=== PATIENT | female | born 1960 | race Caucasian/White ===

== ENCOUNTER 2016-08-15 20:06 | Inpatient (IN) ==
[2016-08-15 20:17] VITALS: BMI 45.0
[2016-08-15] MEDS ORDERED: SODIUM CHLORIDE 1,000 ML IV STA (20:28)
[2016-08-15] MEDS ORDERED: XOPENEX 1.25 MG NEB STA (20:28)
[2016-08-15] MEDS ORDERED: DUONEB NEB STA (20:28)
[2016-08-15] MEDS ORDERED: ROCEPHIN 1 GM in SODIUM CHLORIDE 100 ML IV STA (20:29)
[2016-08-15 20:53] LABS: BASOPHILS % (AUTO) 0.5 % (0.0-3.0); EOSINOPHILS % (AUTO) 0.7 % (0.0-7.0); HEMATOCRIT 41.2 % (37.0-47.0); HEMOGLOBIN 14.2 g/dl (12.0-16.0); IMMATURE GRANULOCYTE % (AUTO) 0.2 % (0.0-5.0); LYMPHOCYTES # (AUTO) 1.6 K/uL (0.60-3.4); LYMPHOCYTES % (AUTO) 37.2 (10.0-50.0); MEAN CORPUSCULAR HEMOGLOBIN 30.5 pg (27.0-31.0); MEAN CORPUSCULAR HGB CONC 34.5 (31.8-35.4); MEAN CORPUSCULAR VOLUME 88.6 fl (81.0-99.0); MONOCYTES # (AUTO) 0.3 K/uL (0.4-2.0); MONOCYTES % (AUTO) 6.2 (0-10); NEUTROPHILS # (AUTO) 2.4 K/ul (2.0-6.9); NEUTROPHILS % (AUTO) 55.2; PLATELET COUNT 123 10^3/uL (140-440); RED BLOOD COUNT 4.65 10^6/ul (4.20-5.40); WHITE BLOOD COUNT 4.35 K/ul (4.6-10.2)
[2016-08-15 21:12] LABS: ABG BASE EXCESS -1 (-2.0-2.0); ABG PCO2 36.9 mmHg (35-45); ABG PH 7.414 (7.35-7.45)
[2016-08-15 21:13] LABS: ABG HCO3 23.6 (22.0-26.0); ABG TCO2 25 (22.0-28.0)
[2016-08-15] MEDS ORDERED: ROCEPHIN ONE (21:20)
[2016-08-15 21:22] LABS: CREATINE KINASE 46 U/L
--- NOTE | 2016-08-15 21:23 | CT ---
EXAM: CT chest without contrast HISTORY: Cough and fever TECHNIQUE: Multi-slice transaxial helical. Coronal and sagital reformations were performed. COMPARISON: Chest radiograph 06/11/2013. FINDINGS: The heart is normal in size. Mild coronary atherosclerosis is present. Calcified mediastinal granu german are present. Mildly enlarged subcarinal lymph node measures up to 14 mm in short axis. Other small scattered mediastinal lymph nodes measure less than 10 mm. There is no axillary adenopathy. Operative changes of gastric bypass are suggested. Anterior abdom inal wall, possible hernia mesh repair is present. Ventral abdominal wall fat and transverse colon containing hernia is present. No evidence of: Dilation is seen. The gallbladder has been removed. A loop of small bowel in the left upper abdomen is dilated measuring up to 6.4 cm and is near the surgical anastomosis. There is mild multilevel degenerative changes of the thoracic spine. The uppermost lung apices are excluded from the exam. Small nodular densities in the right upper lo be are present measuring up to 4 mm. There is no focal airspace opacity or pleural effusion. IMPRESSION: 1. No acute cardiopulmonary findings. No focal pneumonia. 2. Mildly enlarged subcarinal lymph node which is nonspecific. Differential includes an active, in fectious, inflammatory, or neoplastic. 3. Two small pulmonary nodules in the right upper lung measuring up to 4 mm. Recording 2017 Fleisch ner Society guidelines, a low risk patient requires no routine follow-up. If the patient is high ri sk then an optional CT can be performed in 12 months. 4. Operative changes of gastric bypass with dilated small bowel loop in the left upper abdomen near the anastomosis. A mild obstruction at the anastomosis is suggested. 5. Anterior abdominal wall fat and transverse colon containing hernia. 6. Limited exam secondary to uppermost lung apices excluded from the exam.
[2016-08-15 21:29] LABS: FLU INTERNAL QC INTERNAL QC VALID; RAPID FLU A NEGATIVE (NEGATIVE); RAPID FLU B NEGATIVE (NEGATIVE)
[2016-08-15] MEDS ORDERED: SOLU-MEDROL 125 MG IVP STA (21:33)
[2016-08-15 21:58] LABS: ALBUMIN 3.5 g/dL (3.4-5.0); ANION GAP 11.7; BILIRUBIN,TOTAL 0.89 mg/dL (0.00-1.20); BUN/CREATININE RATIO 17.24; CALCIUM 8.8 mg/dL (8.2-10.2); CREATININE 0.87 mg/dL (0.60-1.30); POTASSIUM 3.7 mmol/L (3.5-5.10)
--- NOTE | 2016-08-15 22:09 | ED.PDOC ---
General ED Provider: Dr. YRIS FRENCH-ER Chief Complaint: Shortness of Air Stated Complaint: i am sob --wheezing despite steroids given to me Time Seen by Physician: 20:10 Mode of Arrival: Walk-In Information Source: Patient Exam Limitations: No limitations Primary Care Provider: LEVY HERNÁNDEZ Nursing and Triage Documentation Reviewed and Agree: Yes Respiratory Complaint Exam - Respiratory Complaint/Exam Onset/Duration: one week Symptoms Are: Still present Timing: Intermittent Initial Severity: Mild Current Severity: Moderate Location: Chest Character: Reports: Productive cough Aggravating: Reports: URI Alleviating: Reports: Bronchodilators Associated Signs and Symptoms: Reports: Fever, Wheezing, URI, Nasal congestion. Denies: Rapid breathing, Dyspnea, Chills, Chest pain, Pleuritic chest pain, Hemoptysis, Dizziness, Calf pain, Calf swelling, Edema, Hoarseness, Sinus discomfort, Vomiting, Sore throat, Weight loss, Decreased oral intake, Increased thirst, Increased appetite, Increased urination Related History: Reports: Similar episode History of Healthcare-Acquired Pneumonia: No Pulmonary Embolism Risk Factors: None Cardiac Risk Factors: Reports: Smoking Pseudomonas Risk Factors: Reports: Chronic Lung Disease Tuberculosis Risk Factors: Reports: None Home Oxygen Use: No Recent Stress Test: No Recent Echo/LV Function: No Current Antibiotic Use: No Current Asthma Medication Use: No Respiratory Distress: Moderate Inadequate Respiratory Effort: Yes Dysphagia Present: No Stridor Present: No JVD Present: No Accessory Muscle Use: No Retractions: Not Present Diminished Breath Sounds: No Prolonged Respiration: Expiratory phase Sinus Tenderness: None Grunting Respirations: No Kussmaul Respirations: No Differential Diagnoses: COPD Exacerbation, Pneumonia, Bronchitis, URI Review of Systems - Review Of Systems Constitutional: Reports: No symptoms Eyes: Reports: No symptoms Ears, Nose, Mouth, Throat: Reports: No symptoms Respiratory: Reports: Cough, Wheezing Cardiac: Reports: No symptoms GI: Reports: No symptoms : Reports: No symptoms Musculoskeletal: Reports: No symptoms Skin: Reports: No symptoms Neurological: Reports: No symptoms Endocrine: Reports: No symptoms Hematologic/Lymphatic: Reports: No symptoms All Other Systems: Reviewed and Negative Past Medical History - Past Medical History Endocrine: Reports: Unknown Cardiovascular: Reports: Unknown Respiratory: Reports: Unknown Hematological: Reports: Unknown Gastrointestinal: Reports: Unknown Genitourinary: Reports: Unknown Neuro/Psych: Reports: Unknown Musculoskeletal: Reports: Unknown Cancer: Reports: Unknown Last Menstrual Period: POST MENOPAUSAL - Surgical History General Surgical History: Reports: Unknown - Family History Family History: Reports: Unknown - Social History Smoking Status: Current every day smoker, Heavy tobacco smoker Hx Substance Use: No Alcohol Screening: None Lives: With family - Immunizations Tetanus Shot up to Date: No Physical Exam - Physical Exam Appearance: Well-appearing, No pain distress, Well-nourished Eyes: ANDRES, EOMI, Conjunctiva clear ENT: Ears normal, Nose normal, Oropharynx normal Neck: Supple Respiratory: Airway patent, Breath sounds equal, Rhonchi, Wheezes Cardiovascular: RRR, Pulses normal, No rub, No murmur GI/: Soft, Nontender, No masses, Bowel sounds normal, No Organomegaly Musculoskeletal: Normal strength, ROM intact, No edema, No calf tenderness Skin: Warm, Dry, Normal color Neurological: Sensation intact Psychiatric: Affect appropriate, Mood appropriate Interpretation - Radiology Interpretation Radiology Interpretation By: Radiologist Radiology Results: Negative Exam Interpreted: CT Scan - EKG Interpretation Time of EKG #1: 22:10 Rate: Normal Rhythm: Sinus Ectopy: None Mead: NL ST Segment: Normal Interpretation: nsr Re-Evaluation - Re-Evaluation Time of Re-Evaluation: 22:10 Status: Improved Vital Signs Stable: Yes Pain Level: 0 Appearance: NAD Lungs: Clear Skin: Warm and Dry Neuro: Alert and Oriented X3 CV: RRR Physician Notification - Case Discussed Physician Notified: dr [email or web address] Time of Notification: 22:10 Critical Care Note - Critical Care Note Total Time (mins): 0 Course - Course Hematology/Chemistry: 08/15/16 20:45 08/15/16 21:00 Orders, Labs, Meds: Lab Review 08/15/16 08/15/16 08/15/16 20:27 20:45 20:59 WBC 4.35 L RBC 4.65 Hgb 14.2 Hct 41.2 MCV 88.6 MCH 30.5 MCHC 34.5 RDW Coeff of Awilda 13.2 Plt Count 123 L Immature Gran % (Auto) 0.2 Neut % (Auto) 55.2 Lymph % (Auto) 37.2 [place] % (Auto) 6.2 Eos % (Auto) 0.7 Baso % (Auto) 0.5 Immature Gran # (Auto) 0.0 Neut # 2.4 Lymph # 1.6 [place] # 0.3 L Eos # 0.0 Baso # 0.0 D-Dimer 1.23 Puncture Site Rb O2 Saturation 96.0 ABG pH 7.414 ABG pCO2 36.9 ABG pO2 80.0 L ABG HCO3 23.6 ABG Total CO2 25 ABG Base Excess -1 Rickie Test + FiO2 % 21.0 Sodium Potassium Chloride Carbon Dioxide Anion Gap BUN Creatinine Estimated GFR (MDRD) BUN/Creatinine Ratio Glucose Lactic Acid 12.5 Calcium Total Bilirubin AST ALT Alkaline Phosphatase Total Creatine Kinase 46 Troponin I < 0.0100 B-Natriuretic Peptide 77 Total Protein Albumin Globulin Albumin/Globulin Ratio Procalcitonin < 0.05 Influenza A (Rapid) Negative Influenza B (Rapid) Negative 08/15/16 21:00 WBC RBC Hgb Hct MCV MCH MCHC RDW Coeff of Awilda Plt Count Immature Gran % (Auto) Neut % (Auto) Lymph % (Auto) [place] % (Auto) Eos % (Auto) Baso % (Auto) Immature Gran # (Auto) Neut # Lymph # [place] # Eos # Baso # D-Dimer Puncture Site O2 Saturation ABG pH ABG pCO2 ABG pO2 ABG HCO3 ABG Total CO2 ABG Base Excess Rickie Test FiO2 % Sodium 138 Potassium 3.7 Chloride 105 Carbon Dioxide 25 Anion Gap 11.7 BUN 15 Creatinine 0.87 Estimated GFR (MDRD) 67.00 BUN/Creatinine Ratio 17.24 Glucose 126 H Lactic Acid Calcium 8.8 Total Bilirubin 0.89 AST 120 H ALT 167 H Alkaline Phosphatase 274 H Total Creatine Kinase Troponin I B-Natriuretic Peptide Total Protein 7.0 Albumin 3.5 Globulin 3.5 Albumin/Globulin Ratio 1.00 Procalcitonin Influenza A (Rapid) Influenza B (Rapid) Orders Category Date Time Status ABG DRAW REQUEST Stat CARDIO 08/15/16 20:27 Completed EKG-(ED ONLY) Stat CARDIO 08/15/16 20:27 Completed NEBULIZER TREATMENT Stat CARDIO 08/15/16 20:28 Completed ED IV/MEDIPORT/POWERPORT .ONCE EMERGENCY 08/15/16 20:28 Active ABG Stat LAB 08/15/16 20:27 Completed B-TYPE NATRIURETIC PEPTIDE Stat LAB 08/15/16 20:45 Completed BLOOD CULTURE Stat LAB 08/15/16 20:45 Received CBC W/ AUTO DIFF Stat LAB 08/15/16 20:45 Completed CMP [COMPREHENSIVE METABOLIC PANEL] Stat LAB 08/15/16 21:00 Completed CREATINE KINASE Stat LAB 08/15/16 20:45 Completed D-DIMER Stat LAB 08/15/16 20:45 Completed LACTIC ACID Stat LAB 08/15/16 20:45 Completed MOLECULAR GROUP A STREP Stat LAB 08/15/16 20:59 Results PROCALCITONIN Stat LAB 08/15/16 20:45 Completed RAPID FLU A/B Stat LAB 08/15/16 20:59 Completed STREP SCREEN Stat LAB 08/15/16 20:59 Results TROPONIN I Stat LAB 08/15/16 20:45 Completed 0.9 % Sodium Chloride [Saline Flush] MEDS 08/15/16 20:28 Ordered 1 syr IVF PRN PRN Ceftriaxone Sodium [Rocephin] MEDS 08/15/16 21:20 Discontinued 1 gm .ROUTE .STK-MED ONE Ceftriaxone Sodium [Rocephin] 1 gm MEDS 08/15/16 20:29 Discontinued 0.9 % Sodium Chloride [Sodium Chloride] 100 ml IV ONCE Ipratropium/Albuterol Neb [Duoneb] MEDS 08/15/16 20:28 Discontinued 1 vial NEB ONCE STA Levalbuterol HCl [Xopenex 1.25 mg] MEDS 08/15/16 20:28 Discontinued 1 vial NEB ONCE STA Methylprednisolone Sod Succ/Pf [Solu-Medrol 125 mg] MEDS 08/15/16 21:33 Discontinued 125 mg IVP ONCE STA Sodium Chloride 0.9% [Sodium Chloride] 1,000 ml MEDS 08/15/16 20:28 Active IV 100 mls/hr CT CHEST W/O CONTRAST Stat RADS 08/15/16 20:29 Completed Medications Generic Name Dose Route Start Last Admin Trade Name Freq PRN Reason Stop Dose Admin Sodium Chloride 1,000 mls @ 100 mls/hr 08/15/16 20:28 08/15/16 21:09 Sodium Chloride IV 08/16/16 06:27 100 mls/hr .Q10H STA Administration Sodium Chloride 1 syr 08/15/16 20:28 Saline Flush IVF PRN PRN To flush IV Discontinued Medications Generic Name Dose Route Start Last Admin Trade Name Freq PRN Reason Stop Dose Admin Albuterol/Ipratropium 1 vial 08/15/16 20:28 08/15/16 21:06 Duoneb NEB 08/15/16 20:29 1 vial ONCE STA Administration Ceftriaxone Sodium 1 gm/ 100 mls @ 100 mls/hr 08/15/16 20:29 08/15/16 21:26 Sodium Chloride IV 08/15/16 21:28 100 mls/hr ONCE STA Administration Levalbuterol HCl 1 vial 08/15/16 20:28 08/15/16 21:15 Xopenex 1.25 Mg NEB 08/15/16 20:29 1 vial ONCE STA Administration Methylprednisolone Sodium Succinate 125 mg 08/15/16 21:33 08/15/16 21:42 Solu-Medrol 125 Mg IVP 08/15/16 21:34 125 mg ONCE STA Administration Vital Signs: Temp Pulse Resp BP Pulse Ox 08/15/16 20:08 100.5 F H 91 H 26 H 115/58 L 94 L Departure - Departure Time of Disposition: 22:10 Disposition: ADMITTED INPATIENT Discharge Problem: Obstructive chronic bronchitis with exacerbation Instructions: COPD (Chronic Obstructive Pulmonary Disease) (ED) Condition: Fair Pt referred to PMD for follow-up: No Allergies/Adverse Reactions: Allergies No Known Allergies Allergy (Unverified 06/11/13 14:05) Home Medications: Ambulatory Orders Alprazolam [Xanax] 1 mg PO QID PRN 06/11/13 Divalproex Sodium [Depakote] 500 mg PO Q8HR 06/11/13 Lamotrigine [Lamictal] 150 mg PO BID 06/11/13 Losartan Potassium [Cozaar] 100 mg PO DAILY 06/11/13 Olanzapine [Zyprexa] 7.5 mg PO BEDTIME 06/11/13 Potassium Chloride [K-Dur] 20 meq PO DAILY 06/11/13 Ropinirole HCl [Requip] 5 mg PO BID 06/11/13 Dextroamphetamine/Amphetamine [Adderall 30 Mg Tablet] 30 mg PO BID #75 Oxycodone-Acetaminophen 10-325 [Percocet 10-325] 10 mg PO QID PRN 08/15/16 Disposition Discussed With: Patient, Family
[2016-08-15] MEDS ORDERED: PERCOCET 10-325 PO PRN (22:16)
[2016-08-15] MEDS ORDERED: NON-FORMULARY MEDICATION (Alprazolam [Xanax] 1 MG) PO PRN ×22 (22:16)
[2016-08-15] MEDS: DUONEB NEB SCH (23:19)
[2016-08-15] MEDS: SODIUM CHLORIDE 1,000 ML IV SCH (23:30)
[2016-08-16] MEDS ORDERED: ZYPREXA ONE ×3 (00:53→00:58)
[2016-08-16] MEDS ORDERED: REQUIP ONE ×3 (00:53→00:56)
[2016-08-16] MEDS ORDERED: LOPRESSOR ONE (00:58)
[2016-08-16] MEDS ORDERED: COZAAR ONE (00:59)
[2016-08-16] MEDS ORDERED: REQUIP PO STA (01:00)
[2016-08-16] MEDS ORDERED: COZAAR PO STA (01:00)
[2016-08-16] MEDS ORDERED: ZYPREXA PO STA (01:00)
[2016-08-16] MEDS ORDERED: LOPRESSOR PO STA ×2 (01:00)
[2016-08-16] MEDS: PERCOCET 10-325 PO PRN ×3 (01:06→21:58)
[2016-08-16] MEDS: DUONEB NEB SCH ×4 (05:21→23:03)
[2016-08-16 06:29] LABS: HEMATOCRIT 40.5 % (37.0-47.0); HEMOGLOBIN 13.9 g/dl (12.0-16.0); IMMATURE GRANULOCYTE % (AUTO) 0.4 % (0.0-5.0); LYMPHOCYTES # (AUTO) 0.6 K/uL (0.60-3.4); LYMPHOCYTES % (AUTO) 26.1 (10.0-50.0); MEAN CORPUSCULAR HEMOGLOBIN 30.5 pg (27.0-31.0); MEAN CORPUSCULAR HGB CONC 34.3 (31.8-35.4); MEAN CORPUSCULAR VOLUME 88.8 fl (81.0-99.0); MONOCYTES % (AUTO) 1.3 (0-10); NEUTROPHILS # (AUTO) 1.6 K/ul (2.0-6.9); NEUTROPHILS % (AUTO) 72.2; PLATELET COUNT 103 10^3/uL (140-440); RED BLOOD COUNT 4.56 10^6/ul (4.20-5.40); WHITE BLOOD COUNT 2.26 K/ul (4.6-10.2)
[2016-08-16] MEDS: SYMBICORT 160-4.5 MCG INHALER IH SCH ×3 (06:31→21:58)
[2016-08-16] MEDS ORDERED: DEPAKOTE ONE (06:55)
[2016-08-16] MEDS: DEPAKOTE PO SCH ×3 (07:10→21:58)
[2016-08-16 07:12] LABS: ALBUMIN 3.4 g/dL (3.4-5.0); ALBUMIN/GLOBULIN RATIO 0.94; ANION GAP 13.6; BILIRUBIN,TOTAL 0.6 mg/dL (0.00-1.20); BUN/CREATININE RATIO 18.55; CREATININE 0.97 mg/dL (0.60-1.30); POTASSIUM 3.6 mmol/L (3.5-5.10)
[2016-08-16] MEDS ORDERED: ROPINIROLE HCL 5 MG PO SCH ×21 (09:00)
[2016-08-16] MEDS ORDERED: NON-FORMULARY MEDICATION (Losartan Potassium [Cozaar] 100 MG) PO SCH ×22 (09:00)
[2016-08-16] MEDS ORDERED: LOPRESSOR PO SCH (09:00)
[2016-08-16] MEDS: REQUIP PO SCH ×3 (09:25→21:58)
[2016-08-16] MEDS: LOVENOX SUBCUT SCH (09:25)
[2016-08-16] MEDS: SOLU-MEDROL 40 MG IVP SCH ×2 (09:26→21:58)
[2016-08-16] MEDS: K-DUR PO SCH (09:26)
--- NOTE | 2016-08-16 13:37 | PN ---
DATE OF SERVICE: 08/16/16 SUBJECTIVE: The patient is lying in the bed still having cough and congestion complains of getting lots of phlegm. The patient's dgycrykr-ar-[id number] in the room. REVIEW OF SYSTEMS: CONSTITUTIONAL: No fever since admission, no chills. HEENT: Normal. ENDOCRINE: No weight gain, no weight loss. CVS: No angina symptoms. No CHF symptoms. No palpitations. No atypical chest pain for CAD. No shortness of breath. No PND, no orthopnea. RESPIRATORY: No cough, no hemoptysis. GI: No nausea, no vomiting. No abdominal pain. : No hematuria. No polyuria. MUSCULOSKELETAL:. No joint swelling. PSYCHIATRIC: Not anxious. No depression. No suicidal thoughts. No homicidal thoughts. SKIN: Intact. No rash. PHYSICAL EXAMINATION: V/S: Blood pressure 107/65, respiratory rate 23, heart rate 67, temperature 97.4 and saturation is 90 on 2 liters. HEENT: Normocephalic, atraumatic. Ears, eyes, nose and throat normal. Mucosa dry. NECK: Supple. No JVD, no carotid bruit. No lymphadenopathy. LUNGS: Bilateral entry is decreased and basilar crackles. Expiratory wheezing is present. No rales or rhonchi. HEART: S1, S2 normal. No S3. No murmur, gallop or regurgitation. ABDOMEN: Soft, nontender. Bowel sounds active. No rigidity. No rebound or guarding. No CVA tenderness. EXTREMITIES: No clubbing, cyanosis or pedal edema. MUSCULOSKELETAL: No joint swelling. NEUROLOGIC: Awake, alert, oriented times three. No focal deficit. LYMPHATIC: No lymph nodes palpable. SKIN: Intact. LABS: WBC.26, hgb 13.9, hct 40.5, plt count 103, sodium 140, potassium 3.6, chloride 105, bicarb 25, BUN 18, creatinine 0.97, glucose 243, AST 40, ALT 145 and Alkaline phosphatase 263. ASSESSMENT: 1. COPD exacerbation secondary to the bronchitis 2. Hypertension 3. Dyslipidemia 4. Obesity 5. History of Sturge-Schmid syndrome 6. History of seizure disorder 7. Afebrile illness PLAN: 1. Continue the Rocephin 2. Azithromycin 3. Will get ultrasound of right upper quadrant for the elevated liver function 4. Will get the Dilantin level 5. Daily I&O's TIME SPENT: More than 30 minutes JERICA
[2016-08-16] MEDS: NON-FORMULARY MEDICATION (Dextroamphetamine/Amphetamine [Adderall 30 Mg Tablet] 30 MG) PO SCH ×2 (14:05→21:22)
[2016-08-16] MEDS: LAMOTRIGINE 150 MG PO SCH ×2 (14:05→21:23)
--- NOTE | 2016-08-16 14:10 | HP ---
DATE OF SERVICE: 08/15/16 CHIEF COMPLAINT: Shortness of breath and coughing. HISTORY OF PRESENT ILLNESS: This is a 56-year-old female with multiple medical problems. She has had cough and congestion productive of yellow-green sputum and shortness of breath for which the patient went to the PMD and was given steroids last week. She started taking [id number]-mkh-vqwancc medications and her condition was worsening. The patient was more short of breath, coughing more with yellow-green sputum, feeling feverish, hurting all over so came to the emergency room and was seen by Dr. Solorzano. Temperature was 100.5. Rapid flu was negative. ABGs showed pH 7.414, pc02 36.9, p02 80. Rapid strep was negative. At that time, in view of her multiple medical problems, COPD exacerbation and bronchitis, CT scan of the chest showed some inflammatory, infectious changes. She was admitted to the hospital for IV antibiotics and breathing treatments. REVIEW OF SYSTEMS: CONSTITUTIONAL: Weakness, tiredness. Feverish. HEENT: Normal. ENDOCRINE: No weight gain; no weight loss. CVS: Shortness of breath. No chest pain. No PND, no orthopnea. RESPIRATORY: Cough and congestion productive of yellow-green phlegm. No hemoptysis. GI: No nausea, no vomiting. No abdominal pain. No melena. : No hematuria. No polyuria. MUSCULOSKELETAL: Hurting all over. PSYCHIATRIC: Not anxious. No depression. No suicidal thoughts. No homicidal thoughts. SKIN: Intact, no open lesions. PAST MEDICAL HISTORY: 1. Coronary artery disease 2. Hypertension 3. Dyslipidemia 4. History of seizure disorder not on any medication - the patient has Sturge- Hong syndrome 5. COPD 6. GERD 7. Depression 8. Bipolar disorder 9. Continued nicotine use 10. Anemia 11. History of breast cancer PAST SURGICAL HISTORY: 1. Bilateral partial mastectomy PERSONAL HISTORY: She smokes cigarettes. No drugs or alcohol. She lives at home. FAMILY HISTORY: Not significant. MEDICATIONS: (HOME) 1. Lamictal 2. K-Dur 3. Cozaar 4. Depakote 5. Requip 6. Xanax 7. Zyprexa 8. Ativan 9. Percocet ALLERGIES: NKDA PHYSICAL EXAMINATION: V/S: BP 115/58, respiratory rate 26, heart rate 91, temperature 100.5, saturation 94% on room air. HEENT: The patient has a hemangioma on the right upper eyebrow. No scleral icterus. Mucosa dry. NECK: Supple. No JVD, no bruit. No lymphadenopathy. No thyromegaly. HEART: S1, S2 normal. No murmur. No cyanosis or clubbing. No ascites. LUNGS: Decreased basilar crackles. Mild expiratory wheeze and rhonchi. ABDOMEN: Soft, nontender. Bowel sounds are active. No CVA tenderness. No rigidity or guarding. EXTREMITIES: Edema and varicose veins. No cyanosis, no clubbing. NEUROLOGIC: The patient is awake, alert, oriented times three. SKIN: Intact; no open lesions. LYMPHATIC: No lymph nodes palpable. LABS: White count 4.35, hemoglobin 14.2, hematocrit 41.2, platelet count 123. D. dimer is 1.23. Sodium 130, potassium 3.7, chloride 105, bicarb 25, BUN 15, creatinine 0.87, glucose 126. AST 120, ALT 167. First set of cardiac enzymes are negative. Rapid flu is negative. Rapid strep is negative. Lactic acid is normal. Procalcitonin is normal. ASSESSMENT: 1. ACUTE COPD EXACERBATION SECONDARY TO BRONCHITIS AND UPPER RESPIRATORY INFECTION 2. ELEVATED LIVER ENZYMES 3. HISTORY OF STURGE-HONG SYNDROME WITH SEIZURE DISORDER 4. HYPERTENSION 5. DYSLIPIDEMIA 6. OBESITY PLAN: 1. Admit the patient to the regular floor 2. CBC, CMP today and daily 3. Cardiac enzymes and troponin 4. 2L nasal cannula 5. Rocephin 1 gm daily 6. Lovenox for DVT prophylaxis 7. Duonebs 8. IV fluids at 40 mL/hr 9. Daily I & O's 10. Will follow the patient in daily rounds TIME SPENT: More than 55 minutes today MTDD
[2016-08-16] MEDS ORDERED: OLANZAPINE 7.5 MG PO SCH (21:00)
[2016-08-16] MEDS: LOPRESSOR PO SCH (21:58)
[2016-08-16] MEDS: ROCEPHIN 1 GM in SODIUM CHLORIDE 100 ML IV SCH (21:58)
[2016-08-16] MEDS: ZYPREXA PO SCH (21:58)
[2016-08-16] MEDS: COZAAR PO SCH (21:58)
[2016-08-16] MEDS: SODIUM CHLORIDE 1,000 ML IV SCH (22:00)
[2016-08-16] MEDS: XANAX PO PRN (22:45)
[2016-08-17] MEDS: DUONEB NEB SCH ×4 (05:15→23:10)
[2016-08-17 05:47] LABS: BASOPHILS % (AUTO) 0.1 % (0.0-3.0); HEMOGLOBIN 13.3 g/dl (12.0-16.0); IMMATURE GRANULOCYTE % (AUTO) 0.4 % (0.0-5.0); LYMPHOCYTES # (AUTO) 0.9 K/uL (0.60-3.4); LYMPHOCYTES % (AUTO) 11.4 (10.0-50.0); MEAN CORPUSCULAR HEMOGLOBIN 30.3 pg (27.0-31.0); MEAN CORPUSCULAR HGB CONC 34.1 (31.8-35.4); MEAN CORPUSCULAR VOLUME 88.8 fl (81.0-99.0); MONOCYTES # (AUTO) 0.2 K/uL (0.4-2.0); MONOCYTES % (AUTO) 2.3 (0-10); NEUTROPHILS # (AUTO) 6.8 K/ul (2.0-6.9); NEUTROPHILS % (AUTO) 85.8; PLATELET COUNT 110 10^3/uL (140-440); RED BLOOD COUNT 4.39 10^6/ul (4.20-5.40); WHITE BLOOD COUNT 7.88 K/ul (4.6-10.2)
[2016-08-17 06:05] LABS: ALBUMIN/GLOBULIN RATIO 0.91; ANION GAP 11.6; BILIRUBIN,TOTAL 0.47 mg/dL (0.00-1.20); BUN/CREATININE RATIO 16.66; CALCIUM 8.7 mg/dL (8.2-10.2); CREATININE 0.72 mg/dL (0.60-1.30); POTASSIUM 4.6 mmol/L (3.5-5.10); TOTAL PROTEIN 6.3 g/dL (6.4-8.2)
[2016-08-17] MEDS: DEPAKOTE PO SCH ×2 (06:51→21:03)
[2016-08-17] MEDS ORDERED: DEPAKOTE ONE (06:51)
[2016-08-17] MEDS: K-DUR PO SCH (08:57)
[2016-08-17] MEDS: SYMBICORT 160-4.5 MCG INHALER IH SCH ×2 (08:57→21:00)
[2016-08-17] MEDS: LOVENOX SUBCUT SCH (08:57)
[2016-08-17] MEDS: REQUIP PO SCH ×3 (09:00→21:01)
[2016-08-17] MEDS: LAMOTRIGINE 150 MG PO SCH ×2 (09:00→21:03)
[2016-08-17] MEDS: SOLU-MEDROL 40 MG IVP SCH (09:02)
[2016-08-17] MEDS: TESSALON PERLES PO SCH ×3 (10:23→21:01)
--- NOTE | 2016-08-17 12:53 | PCM.PROG ---
Attending Provider: ATTENDING PROVIDER: Dr. JOSE MCCARTHY DATE OF SERVICE: 08/17/16 SUBJECTIVE: This 56 year old WHITE/ F was hospitalized 08/15/16. The patient states she is feeling better but she still feels sick. She has been up to the bathroom without any problems. She has a mild cough. She still has shortness of breath on exertion. She is afebrile. No chest pain. REVIEW OF SYSTEMS: CONSTITUTIONAL: No fever, no chills. ENDOCRINE: No weight loss or weight gain. HEENT: No sinus drainage, no sore throat. CVS: No angina symptoms. No CHF symptoms. No palpitations. No atypical chest pain for CAD. Shortness of breath with exertion. RESPIRATORY: Cough. No hemoptysis. GI: No melena. No abdominal pain. No nausea, no vomiting. : No hematuria. No polyuria. SKIN: No rash. No wounds. MUSCULOSKELETAL: No pain. CHIEF SUBSTATION OPERATOR: No blackout, no dizziness. No headache. No double vision. PSYCHIATRIC: Not anxious; no depression. No suicidal thoughts. No homicidal thoughts. PHYSICAL EXAMINATION: GENERAL: Sitting on the side of the bed in no distress. VITAL SIGNS: Temperature 97.9 F, Pulse 79, Respiratory Rate 15, BP 127/79, Pulse Ox 97% HEENT: Normocephalic, atraumatic. Mucosa is dry, pallor positive. NECK: No JVP, no carotid bruit. No lymphadenopathy. CARDIAC: S1, S2, no S3. No murmur, gallop or regurgitation. LUNGS: Decreased entry with crackles and wheeze. ABDOMEN: Obese. Soft, non-tender. Bowel sounds active. No rigidity, guarding or CVA tenderness. EXTREMITIES: No clubbing, cyanosis or edema. NEUROLOGIC: Awake, alert and oriented x3. LYMPHATIC: No palpable lymph nodes SKIN: Not dry. Intact. MUSCULOSKELETAL: No joint swelling. LAB REVIEW: 08/17/16 05:30 08/17/16 05:30 08/17/16 05:30: WBC 7.88 D, RBC 4.39, Hgb 13.3, Hct 39.0, MCV 88.8, MCH 30.3, MCHC 34.1, RDW Coeff of Awilda 13.2, Plt Count 110 L, Immature Gran % (Auto) 0.4, Neut % (Auto) 85.8, Lymph % (Auto) 11.4, [place] % (Auto) 2.3, Eos % (Auto) 0.0, Baso % (Auto) 0.1, Immature Gran # (Auto) 0.0, Neut # 6.8, Lymph # 0.9, [place] # 0.2 L, Eos # 0.0, Baso # 0.0, Sodium 143, Potassium 4.6, Chloride 110 H, Carbon Dioxide 26, Anion Gap 11.6, BUN 12, Creatinine 0.72, Estimated GFR (MDRD) 83.00 , BUN/Creatinine Ratio 16.66, Glucose 151 H D, Calcium 8.7, Total Bilirubin 0.47 , AST 44 H D, ALT 99 H D, Alkaline Phosphatase 230 H D, Total Protein 6.3 L, Albumin 3.0 L, Globulin 3.3, Albumin/Globulin Ratio 0.91 ASSESSMENT: Please see below. 1. COPD exacerbation secondary to bronchitis. 2. Bronchitis. 3. Hypertension. 4. Dyslipidemia. 5. Sturge-Schmid syndrome 6. Obesity. 7. History of seizure disorder PLAN: 1. Continue Lovenox, Rocephin and IV fluids 2. Increase Solu-Medrol 60 mg q.8hr 3. Repeat chest x-ray in the a.m. 4. Tessalon Perles 200 mg t.i.d. 5. Encouraged to ambulate Plan and coordination of the patient's care discussed in the presence of Piece Hand and nurse. CONDITION: Stable SCRIBED BY: MICHELLE ANDINO Butter Maker scribed while in presence of service performed by Dr. JOSE MCCARTHY on 08/17/16 ([id number])
[2016-08-17] MEDS: SOLU-MEDROL 125 MG IVP SCH ×2 (12:56→21:05)
[2016-08-17] MEDS ORDERED: SOLU-MEDROL 40 MG IVP SCH (13:00)
[2016-08-17] MEDS: NON-FORMULARY MEDICATION (Dextroamphetamine/Amphetamine [Adderall 30 Mg Tablet] 30 MG) PO SCH ×2 (15:49→21:02)
[2016-08-17] MEDS: ROCEPHIN 1 GM in SODIUM CHLORIDE 100 ML IV SCH (21:00)
[2016-08-17] MEDS: ZYPREXA PO SCH (21:01)
[2016-08-17] MEDS: LOPRESSOR PO SCH (21:01)
[2016-08-17] MEDS: COZAAR PO SCH (21:02)
[2016-08-17] MEDS: PERCOCET 10-325 PO PRN (21:12)
[2016-08-17] MEDS: XANAX PO PRN (21:12)
[2016-08-17] MEDS: SODIUM CHLORIDE 1,000 ML IV SCH (22:32)
[2016-08-18] MEDS: SOLU-MEDROL 125 MG IVP SCH ×3 (04:15→21:16)
[2016-08-18] MEDS: DUONEB NEB SCH ×4 (05:02→23:04)
[2016-08-18] MEDS: SODIUM CHLORIDE 1,000 ML IV SCH (07:10)
[2016-08-18 08:04] LABS: BASOPHILS % (AUTO) 0.1 % (0.0-3.0); HEMATOCRIT 36.8 % (37.0-47.0); HEMOGLOBIN 12.5 g/dl (12.0-16.0); IMMATURE GRANULOCYTE % (AUTO) 0.6 % (0.0-5.0); LYMPHOCYTES % (AUTO) 10.9 (10.0-50.0); MEAN CORPUSCULAR HEMOGLOBIN 30.4 pg (27.0-31.0); MEAN CORPUSCULAR VOLUME 89.5 fl (81.0-99.0); MONOCYTES # (AUTO) 0.1 K/uL (0.4-2.0); MONOCYTES % (AUTO) 1.3 (0-10); NEUTROPHILS # (AUTO) 7.8 K/ul (2.0-6.9); NEUTROPHILS % (AUTO) 87.1; PLATELET COUNT 105 10^3/uL (140-440); RED BLOOD COUNT 4.11 10^6/ul (4.20-5.40); WHITE BLOOD COUNT 8.98 K/ul (4.6-10.2)
[2016-08-18 08:13] LABS: ALBUMIN/GLOBULIN RATIO 0.97; ANION GAP 12.4; BILIRUBIN,TOTAL 0.37 mg/dL (0.00-1.20); BUN/CREATININE RATIO 19.17; CALCIUM 8.6 mg/dL (8.2-10.2); CREATININE 0.73 mg/dL (0.60-1.30); POTASSIUM 4.4 mmol/L (3.5-5.10); TOTAL PROTEIN 6.1 g/dL (6.4-8.2)
--- NOTE | 2016-08-18 09:40 | DI ---
EXAM: Chest two views HISTORY: Cough, shortness of air COMPARISON: 06/11/2013 TECHNIQUE: Two views of the chest were performed FINDINGS: Mild right basilar subsegmental atelectasis. There is granulomatous calcification. Ther e is no pleural effusion or pneumothorax. The heart is normal in size. The mediastinal contour is normal, noting. There are no acute abnormalities of the bones. IMPRESSION: Mild right basilar subsegmental atelectasis. Otherwise, no acute cardiopulmonary proce ss.
[2016-08-18] MEDS: LAMOTRIGINE 150 MG PO SCH ×2 (09:55→20:36)
[2016-08-18] MEDS: NON-FORMULARY MEDICATION (Dextroamphetamine/Amphetamine [Adderall 30 Mg Tablet] 30 MG) PO SCH ×2 (09:56→20:36)
[2016-08-18] MEDS: SYMBICORT 160-4.5 MCG INHALER IH SCH ×2 (09:57→20:32)
[2016-08-18] MEDS: TESSALON PERLES PO SCH ×3 (09:58→20:34)
[2016-08-18] MEDS: LOVENOX SUBCUT SCH (10:00)
[2016-08-18] MEDS: K-DUR PO SCH (10:00)
[2016-08-18] MEDS: DEPAKOTE PO SCH ×3 (13:11→20:34)
[2016-08-18] MEDS: REQUIP PO SCH ×2 (14:19→20:35)
[2016-08-18] MEDS: ROCEPHIN 1 GM in SODIUM CHLORIDE 100 ML IV SCH (20:29)
[2016-08-18] MEDS: PERCOCET 10-325 PO PRN (20:34)
[2016-08-18] MEDS: LOPRESSOR PO SCH (20:34)
[2016-08-18] MEDS: COZAAR PO SCH (20:35)
[2016-08-18] MEDS: ZYPREXA PO SCH (20:35)
[2016-08-19] MEDS: SOLU-MEDROL 125 MG IVP SCH ×3 (04:12→20:21)
[2016-08-19] MEDS: PERCOCET 10-325 PO PRN ×2 (04:15→22:44)
[2016-08-19] MEDS: DUONEB NEB SCH ×4 (04:35→23:08)
[2016-08-19] MEDS: DEPAKOTE PO SCH ×4 (05:27→20:22)
[2016-08-19 07:18] LABS: BASOPHILS % (AUTO) 0.1 % (0.0-3.0); HEMATOCRIT 38.6 % (37.0-47.0); HEMOGLOBIN 12.8 g/dl (12.0-16.0); IMMATURE GRANULOCYTE % (AUTO) 0.6 % (0.0-5.0); LYMPHOCYTES % (AUTO) 12.2 (10.0-50.0); MEAN CORPUSCULAR HEMOGLOBIN 29.8 pg (27.0-31.0); MEAN CORPUSCULAR HGB CONC 33.2 (31.8-35.4); MONOCYTES # (AUTO) 0.1 K/uL (0.4-2.0); MONOCYTES % (AUTO) 1.6 (0-10); NEUTROPHILS # (AUTO) 7.3 K/ul (2.0-6.9); NEUTROPHILS % (AUTO) 85.5; PLATELET COUNT 118 10^3/uL (140-440); RED BLOOD COUNT 4.29 10^6/ul (4.20-5.40); WHITE BLOOD COUNT 8.53 K/ul (4.6-10.2)
[2016-08-19 07:39] LABS: ALBUMIN 3.2 g/dL (3.4-5.0); ALBUMIN/GLOBULIN RATIO 0.89; ANION GAP 16.7; BILIRUBIN,TOTAL 0.43 mg/dL (0.00-1.20); BUN/CREATININE RATIO 18.75; CREATININE 1.12 mg/dL (0.60-1.30); POTASSIUM 4.7 mmol/L (3.5-5.10); TOTAL PROTEIN 6.8 g/dL (6.4-8.2)
[2016-08-19] MEDS: LOVENOX SUBCUT SCH (09:13)
[2016-08-19] MEDS: K-DUR PO SCH (09:13)
[2016-08-19] MEDS: TESSALON PERLES PO SCH ×3 (09:13→20:21)
[2016-08-19] MEDS: SYMBICORT 160-4.5 MCG INHALER IH SCH ×2 (09:13→20:21)
[2016-08-19] MEDS: LAMOTRIGINE 150 MG PO SCH ×2 (09:14→21:09)
[2016-08-19] MEDS: NON-FORMULARY MEDICATION (Dextroamphetamine/Amphetamine [Adderall 30 Mg Tablet] 30 MG) PO SCH ×2 (09:15→21:09)
[2016-08-19] MEDS: REQUIP PO SCH ×2 (15:05→20:22)
[2016-08-19] MEDS: COZAAR PO SCH (20:21)
[2016-08-19] MEDS: ROCEPHIN 1 GM in SODIUM CHLORIDE 100 ML IV SCH (20:21)
[2016-08-19] MEDS: LOPRESSOR PO SCH (20:22)
[2016-08-19] MEDS: ZYPREXA PO SCH (20:22)
[2016-08-19] MEDS: XANAX PO PRN (22:44)
[2016-08-20] MEDS: SOLU-MEDROL 125 MG IVP SCH (04:21)
[2016-08-20 04:50] LABS: BASOPHILS % (AUTO) 0.1 % (0.0-3.0); HEMATOCRIT 36.7 % (37.0-47.0); HEMOGLOBIN 12.4 g/dl (12.0-16.0); IMMATURE GRANULOCYTE % (AUTO) 1.3 % (0.0-5.0); LYMPHOCYTES % (AUTO) 14.8 (10.0-50.0); MEAN CORPUSCULAR HEMOGLOBIN 30.1 pg (27.0-31.0); MEAN CORPUSCULAR HGB CONC 33.8 (31.8-35.4); MEAN CORPUSCULAR VOLUME 89.1 fl (81.0-99.0); MONOCYTES # (AUTO) 0.1 K/uL (0.4-2.0); MONOCYTES % (AUTO) 2.1 (0-10); NEUTROPHILS # (AUTO) 5.4 K/ul (2.0-6.9); NEUTROPHILS % (AUTO) 81.7; PLATELET COUNT 121 10^3/uL (140-440); RED BLOOD COUNT 4.12 10^6/ul (4.20-5.40); WHITE BLOOD COUNT 6.67 K/ul (4.6-10.2)
[2016-08-20] MEDS: DUONEB NEB SCH (05:04)
[2016-08-20 05:08] LABS: ALBUMIN 2.9 g/dL (3.4-5.0); ALBUMIN/GLOBULIN RATIO 0.91; ANION GAP 12.7; BILIRUBIN,TOTAL 0.44 mg/dL (0.00-1.20); BUN/CREATININE RATIO 29.88; CALCIUM 8.8 mg/dL (8.2-10.2); CREATININE 0.87 mg/dL (0.60-1.30); POTASSIUM 4.7 mmol/L (3.5-5.10); TOTAL PROTEIN 6.1 g/dL (6.4-8.2)
[2016-08-20 05:27] VITALS: BP 127/72; TEMP 97
[2016-08-20] MEDS: DEPAKOTE PO SCH (05:36)
[2016-08-20] MEDS: K-DUR PO SCH (08:44)
[2016-08-20] MEDS: SYMBICORT 160-4.5 MCG INHALER IH SCH (08:44)
[2016-08-20] MEDS: LOVENOX SUBCUT SCH (08:45)
[2016-08-20] MEDS: TESSALON PERLES PO SCH (08:45)
[2016-08-20] MEDS: NON-FORMULARY MEDICATION (Dextroamphetamine/Amphetamine [Adderall 30 Mg Tablet] 30 MG) PO SCH (08:45)
[2016-08-20] MEDS: LAMOTRIGINE 150 MG PO SCH (08:46)
--- NOTE | 2016-08-22 10:30 | PN ---
DATE OF SERVICE: 08/18/16 SUBJECTIVE: The patient was admitted with chronic obstructive pulmonary disease exacerbation and bronchitis. She was feeling some better, but still has cough and aches and some dyspnea. REVIEW OF SYSTEMS: CONSTITUTIONAL: No fever, no chills. HEENT: Normal. ENDOCRINE: No weight gain, no weight loss. CVS: No angina symptoms. No CHF symptoms. No palpitations. No atypical chest pain for CAD. No shortness of breath. No PND, no orthopnea. RESPIRATORY: Cough, no hemoptysis. GI: No nausea, no vomiting. No abdominal pain. : No hematuria. No polyuria. MUSCULOSKELETAL:. No joint swelling. PSYCHIATRIC: Not anxious. No depression. No suicidal thoughts. No homicidal thoughts. SKIN: Intact. No rash. PHYSICAL EXAMINATION: V/S: Blood pressure 130/66, respiratory rate 18, heart rate 53, temperature 97. HEENT: Normocephalic, atraumatic. Above the right eyebrow is a hemangioma. NECK: Supple. No JVD, no carotid bruit. No lymphadenopathy. LUNGS: Decreased with some basilar crackles and expiratory wheezing. HEART: S1, S2 normal. No S3. No murmur, gallop or regurgitation. ABDOMEN: Soft, nontender. Bowel sounds active. No rigidity. No rebound or guarding. No CVA tenderness. EXTREMITIES: No clubbing, cyanosis or pedal edema. MUSCULOSKELETAL: No joint swelling. NEUROLOGIC: Awake, alert, oriented times three. No focal deficit. LYMPHATIC: No lymph nodes palpable. SKIN: Intact. LABS: White count is 8.98, hemoglobin 12.5, hematocrit 36.8, platelet count is 105. Sodium 139, potassium 4.4, chloride 106, bicarb 25, BUN 14, creatinine 0.73, glucose 293. ASSESSMENT: 1. CHRONIC OBSTRUCTIVE PULMONARY DISEASE EXACERBATION SECONDARY TO BRONCHITIS 2. THROMBOCYTOPENIA, WHICH IS STABLE. 3. ELEVATED WHITE COUNT 4. ELEVATED AST AND ALT, WHICH IS NORMAL NOW 5. HISTORY OF STURGE-HONG SYNDROME 6. OBESITY 7. HYPERTENSION 8. GERD 9. HISTORY OF BREAST CANCER, BILATERAL PARTIAL MASTECTOMY PLAN: 1. Continue the SoluMedrol, Lovenox, Rocephin. 2. I & O's. 3. Will follow up with the patient in daily rounds. TIME SPENT: More than 30 minutes MTDD
--- NOTE | 2016-08-22 11:35 | PN ---
DATE OF SERVICE: 08/19/16 SUBJECTIVE: The patient was admitted with chronic obstructive pulmonary disease and bronchitis. She is a lot better, but still looks sick from the aches and shortness of breath. She is getting clear to yellow phlegm. REVIEW OF SYSTEMS: CONSTITUTIONAL: No fever, no chills. HEENT: Normal. ENDOCRINE: No weight gain, no weight loss. CVS: No angina symptoms. No CHF symptoms. No palpitations. No atypical chest pain for CAD. No shortness of breath. No PND, no orthopnea. RESPIRATORY: Cough with clear to yellow sputum, no hemoptysis. GI: No nausea, no vomiting. No abdominal pain. : No hematuria. No polyuria. MUSCULOSKELETAL:. No joint swelling. PSYCHIATRIC: Not anxious. No depression. No suicidal thoughts. No homicidal thoughts. SKIN: Intact. No rash. PHYSICAL EXAMINATION: GENERAL: Obese patient sitting in the bed and not in any distress. V/S: Blood pressure 130/66, respiratory rate 17, heart rate 53, temperature is 97. HEENT: Normocephalic, atraumatic. Mucosa dry. Ears, eyes, nose and throat normal. NECK: Supple. No JVD, no carotid bruit. No lymphadenopathy. LUNGS: Decreased with basilar crackles. No wheezing. No rales or rhonchi. HEART: S1, S2 normal. No S3. No murmur, gallop or regurgitation. ABDOMEN: Soft, nontender. Bowel sounds active. No rigidity. No rebound or guarding. No CVA tenderness. EXTREMITIES: No clubbing, cyanosis or pedal edema. MUSCULOSKELETAL: No joint swelling. NEUROLOGIC: Awake, alert, oriented times three. No focal deficit. LYMPHATIC: No lymph nodes palpable. SKIN: Intact. LABS: White count is 8.53, sodium 138, potassium 4.7, chloride 103, bicarb 23, BUN 21, creatinine 1.12, hemoglobin 12.8, hematocrit 38.6, platelet count is 118. ASSESSMENT: 1. Chronic obstructive pulmonary disease exacerbation secondary to bronchitis 2. Elevated liver enzymes, which is better 3. Thrombocytopenia 4. Hypertension 5. Dyslipidemia 6. History of breast cancer 7. Sturge-Schmid Syndrome PLAN: 1. Continue the Rocephin, Zithromycin, SoluMedrol and I & 0"s. 2. Will follow up with the patient in daily rounds. TIME SPENT: More than 30 minutes MTDD
--- NOTE | 2016-08-30 13:56 | DS ---
DATE OF SERVICE: 08/20/16 FINAL DIAGNOSIS: 1. COPD exacerbation secondary to the bronchitis 2. Questionable pneumonia per CAT scan with enlarged lymph node question for the infection 3. Lung nodules 4. Hypertension 5. Dyslipidemia 6. History of seizure disorder on Depakote 7. Anxiety disorder 8. Sturge-beard syndrome 9. Status post gastric bypass. DISCHARGE INSTRUCTIONS: Discharge the patient home. Followup with the PMD within one week. Continue home medication as is. MEDICATIONS AT DISCHARGE: Depakote Xanax Adderall Lamictal Cozaar Zyprexa Oxycodone Potassium Requip NEW PRESCRIPTIONS: Keflex 500mg twice a day for five days Prednisone 10mg twice a day for five days Symbicort two puff twice a day Gargle and rinse mouth after each use. DIET INSTRUCTIONS: Heart healthy ACTIVITY: Gradually increase regular activities. SMOKING: The patient is a smoker, as patient is a smoker we strictly suggested that she should have an outpatient pulmonary consultation. DISEASE SPECIFIC EDUCATION: CT scan findings of questionable bowel obstruction but patient did have a regular bowel movement and did not have constipation and no abdominal pain. Lung nodules and the reason for the followup with the medical administrative specialist The patient verbalized understanding. HOSPITAL COURSE: Montserrat Roy who is a 56 year old female came to the emergency room with the cough and congestion, shortness of breath and getting yellow/green phlegm. CT of the chest showed the enlarged lymph nodes with the question inflammation and some lung nodules and questionable obstruction of the bowel but the patient did not have any problems with the bowel and she has been having regular bowel movement and no nausea or vomiting. At that time the patient was admitted to the hospital and started on the IV antibiotics, breathing treatments for which patient started feeling better. In review of her Sturge- Beard and seizures the patient was studied during the hospitalization. Her sugars were high and AST and ALT was elevated but they gradually came down to normal. The patient's hospital course was uneventful. Explained her to recheck her sugars as outpatient. As the patient is prone for the diabetes given her weight and elevated sugars. Life style modification and weight loss been discussed. Repeat chest X-ray was done on the August 18 right basilar subsegmental atelectasis otherwise normal lungs. The patient was more better and more less short of breath. Sugars were elevated and at that time we did clearly inform patient that she needs check-up outpatient A1c and weight loss diet control. Possibly having the diabetes and need to be followed with the PMD. TIME SPENT: More than 55 minutes. MTDD
== END 2016-08-20 09:55 | disposition home or self-care (01) | DRG 190 ==
LOC: ED 20:06 → MEDSURG A 22:16
PROVIDERS: ADMIT Emergency Medicine; ATTEND Emergency Medicine
DX: J44.0 Chronic obstructive pulmonary disease with (acute) lower respiratory infection (principal); J20.9 Acute bronchitis, unspecified; J44.1 Chronic obstructive pulmonary disease with (acute) exacerbation; J18.9 Pneumonia, unspecified organism; J98.11 Atelectasis; Q85.8 Other phakomatoses, not elsewhere classified; R74.8 Abnormal levels of other serum enzymes; D69.6 Thrombocytopenia, unspecified; R06.02 Shortness of breath; R50.9 Fever, unspecified; R59.0 Localized enlarged lymph nodes; R91.8 Other nonspecific abnormal finding of lung field; I10 Essential (primary) hypertension; E78.5 Hyperlipidemia, unspecified; F41.9 Anxiety disorder, unspecified; E66.9 Obesity, unspecified; F17.200 Nicotine dependence, unspecified, uncomplicated; Z86.69 Personal history of other diseases of the nervous system and sense organs; Z79.899 Other long term (current) drug therapy; Z98.0 Intestinal bypass and anastomosis status; Z98.84 Bariatric surgery status
CPT/HCPCS: 36415; 80053; 82550; 82803; 83605; 83880; 84145; 84484; 85025; 85379; 87040; 87070; 87186; 87651; 87804; 87880; 93005; 93010; 94640; 96365; 96375; 99223; 99233; 99239; 99284

== ENCOUNTER 2016-09-04 12:52 | Outpatient (CLI) | END 2016-09-04 12:53 | disposition home or self-care (01) | LOC: CAR 12:52 | PROVIDERS: ATTEND Emergency Medicine | DX: J42 Unspecified chronic bronchitis (principal); R06.02 Shortness of breath ==

== ENCOUNTER 2017-07-17 14:41 | Outpatient (CLI) ==
--- NOTE | 2017-07-17 15:06 | DI ---
Exam: Three x-rays of the left foot. Comparison: None available. Reason for exam: Pain. FINDINGS: No acute fracture or malalignment. The joint spaces are well maintained. No unexplained calcific soft tissue density or radiopaque retained foreign body. Degenerative disease is seen with calcaneal spurring. There is likely flattening of the plantar arch. Impression: 1. No acute fracture or malalignment is seen in the left foot. 2. If clinical concern exists for pes planus deformity, standing x-rays may be performed.
--- NOTE | 2017-07-17 15:07 | DI ---
EXAM: Two views of the left hip. History: Left hip pain. Findings: No acute fracture or dislocation. No abnormal calcifications or radiopaque foreign bodies . Mild to moderate narrowing of the left hip joint with subchondral sclerosis and small osteophytes. Impression: 1. No acute osseous abnormality. 2. 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
== END 2017-07-17 14:42 | disposition home or self-care (01) ==
LOC: RAD 14:41
PROVIDERS: ATTEND Physician Assistant Medical
DX: M25.552 Pain in left hip (principal); M79.672 Pain in left foot

== ENCOUNTER 2017-08-06 11:00 | Outpatient (RCR) ==
--- NOTE | 2017-08-01 09:47 | RS.OPPTEV2 ---
Date of Note: 07/30/17 Visit #: 1 Date of Evaluation: 07/30/17 Payer Source: Medicaid Surgery Performed?: No Treatment Diagnosis: posterior tibial tendinitis of LLE History of Condition/Mechanism of Injury:: pt reports pain began approx 3 weeks ago. No known injury. Prior Level of Function.....Patient was independent with: ADL's, Self Care, Ambulation/Mobility, Community Integration/Access Functional Limitations: Standing, Squatting, Ambulation, Community Access/ Integration Current Subjective/complaints:: pt c/o pain in L medial heel. pt states that she wears crocs most of the time to give her better support. Reports she was fitted for custom orthotics approx 20 yrs ago and they were so uncomfortable she could not wear them. Treatment Side (optional): Left *Precautions: pt with hx of cancer Medical History Medical History: Hypertension, COPD, Arthritis, Cancer (breast) Surgical History: Knee Replacement, Lumbar Spine, Mastectomy Surgical History Comments:: B partial mastectomy (per patient) Smoking Status: Current every day smoker Diagnostic Testing/Imaging:: X ray of L foot at [facility] on 07/17/17: no acute fx or malalignment seen, calcaneal spurring, flattening of plantar arch. L hip x ray:mild to mod arthritis of L hip. Hx Home Medications: pt unsure of medications will bring on next visit. Patient's Goals: decrease pain in foot to allow for increased mobility Pain Assessment - Pain Description Pain Location: L medial heel Pain Description: Burning, Sharp Current Pain Intensity: 7-8 with standing, 1-2 at rest Functional Outcome Measure LE Functional Scale: 21 (76%) - G Codes & Severity Modifier G Codes & Modifier: n/a Source of G Code score: n/a Observation - Observation Inspection: in standing: B feet with increased pronation with pes planus BLE R is worse than L. pt with min edema in L medial heel Posture: Forward Head, Rounded Shoulders, Increased Thoracic Kyphosis, Decreased Lumbar Lordosis Gait - Gait Pattern General Gait Pattern Observation: Antalgic Gait, Short Stance Time (L) Gait Comments: advised pt to consider using an assistive device to improve gait sequencing and safety General Range of Motion: WFL's BUE and LE's except DF/PF Muscle Strength: BUE 5/5. BLE hip flex 4+/5, knee flex/ext 4+/5 - Left Ankle ROM Left DF with Knee extension: -9 Left Plantar Flexion: 48 - Right Ankle ROM Right DF with Knee extension: 18 Right Plantarflexion: 40 Right Ankle/Foot ROM Limitations: Soft Tissue Tightness, Pain - Left Ankle Strength Left Dorsiflexion: 3+ Fair+ Left Plantar flexion: 4- Good- - Right Ankle Strength Right Dorsiflexion: 4 Good Right Plantarflexion: 4 Good Palpation Palpation Findings: Tenderness (L medial heel) Sensation - Sensation Right Upper Extremity: Intact/Normal Left Upper Extremity: Intact/Normal Right Lower Extremity: Intact/Normal Left Lower Extremity: Intact/Normal Balance - Sitting Balance Static Sitting Balance: Normal Dynamic Sitting Balance: Normal - Standing Balance Static Standing Balance: Good Dynamic Standing Balance: Good - Comments Balance Assessment Comments: pt with episodes of LOB while standing due to pain in L foot. - Heat/Cryotherapy Treatment: Cryotherapy (L medial foot/heel) Interventions - Exercise/Activities/Manual Therapy Exercises/Activities: pt performed DF/PF with green t band, towel gastroc stretch, towel curls, ankle alphabet, standing heel cord stretch, hamstring stretch Manual Therapy: n/a HOME EXERCISE PROGRAM: pt given written HEP including: DF/PF with green tband, ankle alphabet, towel stretch, towel curls, standing heel cord stretch. - Charges Timed Code Treatment Minutes: 58 Total Treatment Time: 68 Procedures billed for this date of service:: eval low, cold pack EVALUATION COMPLEXITY LEVEL EVALUATION COMPLEXITY LEVEL: HISTORY: Medium (HTN, OA, COPD), EXAM OF BODY SYSTEMS: Low (muculoskelatal, neuromuscular), CLINICAL PRESENTATION: Low, CLINICAL DECISION MAKING: Low Assessment Assessment: pt presents with posterior tibial tendinitis of L foot. pt with pes planus B feet, and increased pronation with pain in L foot. pt with antalgic gait due to pain. Patient Education: Home Exercise Program, Education of Plan of Care Rehab Potential: Good Short Term Goals Goal #1: pt report pain < 6/10 with activity Goal to be met by: 08/09/17 Goal #2: pt amb in dept with/without AD with no LOB with decreased antalgic pattern Goal to be met by: 08/09/17 [facility] Goals Goal #1: pt report pain <4/10 with activity L foot Goal to be met by: 08/27/17 Goal #2: pt with improved L ankle ROM WFL's Goal to be met by: 08/27/17 Goal #3: pt independent with HEP Goal to be met by: 08/27/17 Goal #4: pt amb community distances with decreased pain Goal to be met by: 08/27/17 Plan - Treatment to be Provided Procedures: Therapeutic Exercises, Gait Training, Patient Education Modalities: Cryotherapy - Treatment Plan Frequency: 3 X week Duration: 6 weeks ORDER # VISITS AND/OR THROUGH DATE: 09/06/17 - Treatment Code (1) Posterior tibial tendinitis of left lower extremity Code(s): M76.822 - POSTERIOR TIBIAL TENDINITIS, LEFT LEG (2) Left foot pain Code(s): M79.672 - PAIN IN LEFT FOOT (3) Edema of left foot Code(s): R60.0 - LOCALIZED EDEMA
--- NOTE | 2017-08-02 11:34 | RS.CXNS ---
Date of scheduled appointment: 08/02/17 Type: Cancel (Patient calls to cancel due to being sick.)
--- NOTE | 2017-08-06 15:27 | RS.OPPTDN ---
Subjective Date of Note: 08/06/17 Visit #: 2 Date of Evaluation: 07/30/17 Payer Source: Medicaid Treatment Diagnosis: posterior tibial tendinitis of LLE Current Subjective/complaints:: pt states that she bought some [employer] Balance athletic shoes with better arch support and has been trying to wear them a few hours a day. States that she has to work into them due to foot pain. pt states she has been doing her HEP several times per day. She states that she feels the ex is helping. *Precautions: pt with hx of cancer Pain Assessment - Pain Description Pain Location: L medial heel Pain Description: Burning, Sharp Current Pain Intensity: 7-8/10 after walking in from parking lot due to had to park far away. - Heat/Cryotherapy Treatment: Hot Pack (to L heel cord prior to stretch for approx 10 mins), Cryotherapy (to L medial heel after ex ) Interventions - Exercise/Activities/Manual Therapy Exercises/Activities: pt received BLE heel cord stretches, hamstring stretches, pt performed LLE DF, inversion, eversion, with green tband, PF with blue tband. pt performed 2 sets of 10 reps each ex. pt also contract relax with DF/PF. pt unable to tolerate standing heel cord stretch after other ex due to pain. Manual Therapy: n/a HOME EXERCISE PROGRAM: pt given written HEP including: DF/PF with green tband, ankle alphabet, towel stretch, towel curls, standing heel cord stretch. - Charges Timed Code Treatment Minutes: 38 Total Treatment Time: 60 Procedures billed for this date of service:: exercise 2 cold pack Assessment: pt heel pain has decreased to touch, pt also reports pain is improving at home, continues to have increased pain with amb long distances. Advised pt to try heel cup for shoe to decrease pain. Patient Education: Home Exercise Program, Education of Plan of Care Patient demonstrates compliance with HEP?: Yes Short Term Goals Goal #1: pt report pain < 6/10 with activity Goal to be met by: 08/09/17 Progress towards Goal:: Progressing Comments:: at rest pain <6 with amb pain 7-8/10 Goal #2: pt amb in dept with/without AD with no LOB with decreased antalgic pattern Goal to be met by: 08/09/17 Comments:: no loss of balance, does continue with antalgic gait [facility] Goals Goal #1: pt report pain <4/10 with activity L foot Goal to be met by: 08/27/17 Goal #2: pt with improved L ankle ROM WFL's Goal to be met by: 08/27/17 Progress towards goal: Progressing Goal #3: pt independent with HEP Goal to be met by: 08/27/17 Progress towards goal: Progressing Goal #4: pt amb community distances with decreased pain Goal to be met by: 08/27/17 Progress towards goal: Progressing Plan PLAN OF CARE EXPIRES ON:: 08/27/17 ORDER # VISITS AND/OR THROUGH DATE: 09/06/17 PLAN: continue to progress with ex, advised pt to try ice massage at home after ex.
== END 2017-08-07 ==
PROVIDERS: ATTEND Physician Assistant
DX: M76.822 Posterior tibial tendinitis, left leg (principal)

== ENCOUNTER 2017-12-07 11:16 | Outpatient (CLI) ==
[2017-04-18 15:00] VITALS: BMI 45.0
== END 2017-12-07 11:29 | disposition short-term general hospital (02) ==
LOC: AMBL 11:16
PROVIDERS: ATTEND Internal Medicine Geriatric Medicine
DX: R11.2 Nausea with vomiting, unspecified (principal); R19.7 Diarrhea, unspecified; R07.9 Chest pain, unspecified; M79.602 Pain in left arm; R03.1 Nonspecific low blood-pressure reading; Q85.8 Other phakomatoses, not elsewhere classified; J44.9 Chronic obstructive pulmonary disease, unspecified; Z85.41 Personal history of malignant neoplasm of cervix uteri

== ENCOUNTER 2018-02-25 20:09 | Emergency (ER) ==
[2018-02-25 20:19] VITALS: BP 132/83; TEMP 98.7; BMI 46.3
--- NOTE | 2018-02-25 20:46 | ED.PDOC ---
General ED Provider: Dr. ALEXA JURADO Chief Complaint: Extremity Swelling/Pain Stated Complaint: patient reports swelling of legs Time Seen by Physician: 20:47 Mode of Arrival: Wheelchair Information Source: Patient Exam Limitations: No limitations Primary Care Provider: LEVY HERNÁNDEZ Nursing and Triage Documentation Reviewed and Agree: Yes Does patient meet sepsis criteria?: No System Inflammatory Response Syndrome: Not Applicable Sepsis Protocol: For patient's 13 years and over: Temp is 96.8 and below OR 101 and greater Pulse >90 BPM Resp >20/minute Acutely Altered Mental Status Are patient's symptoms suggestive of a new infection, such as: -Pneumonia -Skin, Soft Tissue -Endocarditis -UTI -Bone, Joint Infection -Implantable Device -Acute Abdominal Infection -Wound Infection -Meningitis -Blood Stream Catheter Infection -Unknown Musculoskeletal Complaint Exam - Lower Extremity Complaint/Exam Location of Pain: Reports: Right, Left, Leg Mechanism of Injury: Reports: No known trauma Onset/Duration: 1 day Symptoms Are: Still present Initial Severity: Moderate Current Severity: Moderate Location: Reports: Diffuse Character: Reports: Burning Alleviating: Reports: None Aggravating: Reports: Movement (touching ), Weight bearing Able to Bear Weight: Yes Associated Signs and Symptoms: Reports: Swelling, Redness DVT Risk Factors: Reports: None Septic Arthritis Risk Factors: Reports: None Related Surgical History: Reports: None Lower Extremity Findings: Present: Swelling (1-2 + pitting ), Erythema, Warmth, Tenderness (to light palpation bilaterally ) Differential Diagnoses: Dislocation, Other (cellulitis ) Review of Systems - Review Of Systems Constitutional: Reports: No symptoms Eyes: Reports: No symptoms Ears, Nose, Mouth, Throat: Reports: No symptoms Respiratory: Reports: No symptoms Cardiac: Reports: No symptoms GI: Reports: No symptoms : Reports: No symptoms Musculoskeletal: Reports: No symptoms Skin: Reports: Change in color, Rash Neurological: Reports: No symptoms Endocrine: Reports: No symptoms Hematologic/Lymphatic: Reports: No symptoms All Other Systems: Reviewed and Negative Past Medical History - Past Medical History Endocrine: Reports: Dyslipidemia Cardiovascular: Reports: CAD, Hypertension Respiratory: Reports: COPD Hematological: Reports: Anemia Gastrointestinal: Reports: GERD Genitourinary: Reports: None Neuro/Psych: Reports: Seizure, Anxiety, Bipolar Disorder Musculoskeletal: Reports: Arthritis Cancer: Reports: Breast Last Menstrual Period: na Other Pertinent Past Medical History: Sterge beard Syndrome, Obesity - Surgical History General Surgical History: Reports: Appendectomy, Cholecystectomy, Orthopedic ( KNee replacement x 2 on the right , Spinal fusion L4 L5 ), Other (Parial Mastectomy bilaterally), Unknown - Family History Family History: Reports: Unknown - Social History Smoking Status: Current every day smoker, Heavy tobacco smoker Hx Substance Use: No Alcohol Screening: None - Immunizations Tetanus Shot up to Date: Yes Physical Exam - Physical Exam Appearance: Ill-appearing, Obese Eyes: ANDRES, EOMI, Conjunctiva clear Neck: Supple Respiratory: Airway patent, Breath sounds clear, Breath sounds equal, Respirations nonlabored Cardiovascular: Bradycardia GI/: Soft (obese ), Nontender, No masses, Bowel sounds normal Musculoskeletal: ROM intact, Edema (Lwoer ext ) Skin: Warm, Dry Neurological: Sensation intact, Motor intact, Reflexes intact, Cranial nerves intact, Alert, Oriented Psychiatric: Anxious Physician Notification - Case Discussed Physician Notified: Dr Tang Time of Notification: 22:40 (see CCN notes. ) Critical Care Note - Critical Care Note Total Time (mins): 0 Comments: discussed with Dr. Liriano regarding need to admit patient with cellulitis. He stated that she should be treated with Rocephin and followed up by her PCP in the morning . Call him again and explained that she had an elevated D-Dimer and would need to have a v q scan and lower extremity US and that since she was a difficult stick so requested admission so she can have the test done in the morning. Dr Vincent stated that we need to get Doron Client Account Assistant to place a Bigger IV so that the patient can have a the test or be sent to [facility] or [facility]. Patient refused to be stuck several times and refused to be transferred. she will sign AMA. will sent patient home with Antibiotics with follow up with PCP. Course - Course Hematology/Chemistry: 02/25/18 21:23 02/25/18 21:23 Orders, Labs, Meds: Lab Review 02/25/18 02/25/18 02/25/18 21:23 21:23 21:23 WBC 5.97 RBC 4.06 L Hgb 12.0 Hct 35.6 L MCV 87.7 MCH 29.6 MCHC 33.7 RDW Coeff of Awilda 13.2 Plt Count 138 L Immature Gran % (Auto) 0.2 Neut % (Auto) 56.9 Lymph % (Auto) 34.0 [place] % (Auto) 5.5 Eos % (Auto) 2.7 Baso % (Auto) 0.7 Immature Gran # (Auto) 0.0 Neut # (Auto) 3.4 Lymph # (Auto) 2.0 Bladen # (Auto) 0.3 L Eos # (Auto) 0.2 Baso # (Auto) 0.0 PT INR APTT D-Dimer (Manual) 1066.23 Sodium 139.0 Potassium 3.65 Chloride 103.7 Carbon Dioxide 30.3 H Anion Gap 8.65 BUN 12.9 Creatinine 0.95 Estimated GFR (MDRD) 60.00 BUN/Creatinine Ratio 13.57 Glucose 123.8 H Lactic Acid Calcium 9.37 Total Bilirubin 1.07 AST 25.4 ALT 16.5 Alkaline Phosphatase 110.8 Total Protein 7.22 Albumin 4.04 Globulin 3.18 Albumin/Globulin Ratio 1.27 Amylase 63.7 Lipase 96.6 Procalcitonin 02/25/18 02/25/18 02/25/18 21:23 21:23 21:23 WBC RBC Hgb Hct MCV MCH MCHC RDW Coeff of Awilda Plt Count Immature Gran % (Auto) Neut % (Auto) Lymph % (Auto) Bladen % (Auto) Eos % (Auto) Baso % (Auto) Immature Gran # (Auto) Neut # (Auto) Lymph # (Auto) [place]aden # (Auto) Eos # (Auto) Baso # (Auto) PT 9.9 INR 0.99 APTT 25.4 D-Dimer (Manual) Sodium Potassium Chloride Carbon Dioxide Anion Gap BUN Creatinine Estimated GFR (MDRD) BUN/Creatinine Ratio Glucose Lactic Acid 0.75 Calcium Total Bilirubin AST ALT Alkaline Phosphatase Total Protein Albumin Globulin Albumin/Globulin Ratio Amylase Lipase Procalcitonin < 0.05 Orders Category Date Time Status ED IV/MEDIPORT/POWERPORT .ONCE EMERGENCY 02/25/18 20:54 Active AMYLASE Stat LAB 02/25/18 21:23 Completed BLOOD CULTURE (ED ONLY) Stat LAB 02/25/18 21:23 Received CBC W/ AUTO DIFF Stat LAB 02/25/18 21:23 Completed COMPREHENSIVE METABOLIC PANEL Stat LAB 02/25/18 21:23 Completed D-DIMER Stat LAB 02/25/18 21:23 Completed LACTIC ACID Stat LAB 02/25/18 21:23 Completed LIPASE Stat LAB 02/25/18 21:23 Completed PARTIAL THROMBOPLASTIN TIME Stat LAB 02/25/18 21:23 Completed PROCALCITONIN Stat LAB 02/25/18 21:23 Completed PT WITH INR Stat LAB 02/25/18 21:23 Completed 0.9 % Sodium Chloride [Saline Flush] MEDS 02/25/18 20:54 Ordered 1 syr IVF PRN PRN Cefazolin Sodium [Ancef] MEDS 02/25/18 21:16 Discontinued 1 gm .ROUTE .STK-MED ONE Cefazolin Sodium [Ancef] 1 gm MEDS 02/25/18 20:54 Discontinued 0.9 % Sodium Chloride [Sodium Chloride] 100 ml IV ONCE Medications Generic Name Dose Route Start Last Admin Trade Name Freq PRN Reason Stop Dose Admin Sodium Chloride 1 syr 02/25/18 20:54 02/25/18 21:31 Saline Flush IVF 1 syr PRN PRN Administration To flush IV Discontinued Medications Generic Name Dose Route Start Last Admin Trade Name Freq PRN Reason Stop Dose Admin Cefazolin Sodium 1 gm/ Sodium 100 mls @ 100 mls/hr 02/25/18 20:54 02/25/18 21 :31 Chloride IV 02/25/18 21:53 100 mls/hr ONCE STA Administration Vital Signs: Temp Pulse Resp BP Pulse Ox 02/25/18 20:11 98.7 F 55 L 20 132/83 96 Departure - Departure Time of Disposition: 23:20 Disposition: AMA Discharge Problem: Cellulitis Qualifiers: Site of cellulitis: extremity Site of cellulitis of extremity: lower extremity Laterality: unspecified laterality Qualified Code(s): L03.119 - Cellulitis of unspecified part of limb Instructions: Cellulitis (ED) Condition: Fair Pt referred to PMD for follow-up: Yes IPMP verified?: No Additional Instructions: You are signing an AMA because we cannot rule out a clot that could be in your legs or lungs and can cause . Prescriptions: Cephalexin [Keflex] 500 mg PO Q8HR #30 capsule Allergies/Adverse Reactions: Allergies No Known Allergies Allergy (Unverified 02/25/18 20:26) Home Medications: Ambulatory Orders Alprazolam [Xanax] 1 mg PO TID 06/11/13 Divalproex Sodium [Depakote] 500 mg PO Q8HR 06/11/13 Lamotrigine [Lamictal] 150 mg PO DAILY 06/11/13 Losartan Potassium [Cozaar] 100 mg PO DAILY 06/11/13 Olanzapine [Zyprexa] 7.5 mg PO BEDTIME 06/11/13 Potassium Chloride [K-Dur] 20 meq PO DAILY 06/11/13 Ropinirole HCl [Requip] 5 mg PO BID 06/11/13 Oxycodone-Acetaminophen 10-325 [Percocet 10-325] 10 mg PO QID PRN 08/15/16 Atorvastatin Calcium 10 mg PO DAILY 04/11/17 Montelukast Sodium 10 mg PO DAILY 04/11/17 Cephalexin [Keflex] 500 mg PO Q8HR #30 capsule 02/25/18 [place] Carbonate 300 mg PO DAILY 02/25/18 Disposition Discussed With: Patient, Family
[2018-02-25] MEDS ORDERED: ANCEF 1 GM in SODIUM CHLORIDE 100 ML IV STA (20:54)
[2018-02-25] MEDS ORDERED: ANCEF ONE (21:16)
== END 2018-02-25 23:35 | disposition left against medical advice (07) ==
LOC: ED 20:09
DX: L03.119 Cellulitis of unspecified part of limb (principal); M79.605 Pain in left leg; M79.604 Pain in right leg; R60.0 Localized edema; F17.210 Nicotine dependence, cigarettes, uncomplicated; Z79.899 Other long term (current) drug therapy
CPT/HCPCS: 36415; 80053; 82150; 83605; 83690; 84145; 85025; 85379; 85610; 85730; 87040; 96365; 99284

== ENCOUNTER 2022-06-12 14:13 | Observation (INO) ==
--- NOTE | 2022-06-12 14:33 | ED.PDOC ---
General ED Provider: Dr. PATTI JUSTICE MD Chief Complaint: Extremity Pain/Injury Stated Complaint: Patient presents with progressive bilateral lower extremity swelling and erythema for 4 days. She denies fever, chills. Time Seen by Provider: 06/12/22 14:30 Mode of Arrival: Walk-In Information Source: Patient Primary Care Provider: NICOLA NYE Nursing and Triage Documentation Reviewed and Agree: Yes Does patient meet sepsis criteria?: No System Inflammatory Response Syndrome: Not Applicable Sepsis Protocol: For patient's 13 years and over: Temp is 96.8 and below OR 101 and greater Pulse >90 BPM Resp >20/minute Acutely Altered Mental Status Are patient's symptoms suggestive of a new infection, such as: -Pneumonia -Skin, Soft Tissue -Endocarditis -UTI -Bone, Joint Infection -Implantable Device -Acute Abdominal Infection -Wound Infection -Meningitis -Blood Stream Catheter Infection -Unknown Miscellaneous Complaint Exam Febrile Illness/Adult Complaint/Exam Onset/Duration: 4-5 days of leg swelling and erythema bilaterally Symptoms Are: Still present Timing: Constant Highest Temperature Recorded: none Initial Severity: Mild Current Severity: Severe Aggravating: Reports None Alleviating: Reports None Associated Signs and Symptoms: Denies Headache, Fluid intake, Short of air, Cough, Sore throat, Nausea, Vomiting, Chills, Diaphoresis, Dysuria, Arthralgia, Stiff neck, Myalgia, Rash or Altered mental status Related History: Reports Similar episode Serious Bacterial Infection Risk Factors: Reports None Current Antibiotic Use: No Related Surgical History: None Review of Systems Review Of Systems Constitutional: Reports No symptoms Eyes: Reports No symptoms Ears, Nose, Mouth, Throat: Reports No symptoms Respiratory: Reports No symptoms Cardiac: Reports No symptoms GI: Reports No symptoms : Reports No symptoms Musculoskeletal: Reports Other (bilateral leg swelling and erythema) Skin: Reports No symptoms Neurological: Reports No symptoms Endocrine: Reports No symptoms Hematologic/Lymphatic: Reports No symptoms All Other Systems: Reviewed and Negative [facility] Medical History (Updated 06/12/22 @ 14:49 by PATTI JUSTICE MD) Back pain Convulsions Hypertension Leg pain Normal menstrual period Social History Smoking and tobacco status: Current every day smoker History of recent travel: No Surgical History History of surgery Female Reproductive History Menstrual Hx Hysterectomy: No Hx Tubal Ligation: No Physical Exam Physical Exam Appearance: Reports No pain distress and Obese Ill-appearing: Mild Pain Distress: None Eyes: Reports Not Examined ENT: Reports Nose normal and Oropharynx normal Neck: Supple Respiratory: Reports Airway patent, Breath sounds clear, Breath sounds equal and Breath sounds diminished Cardiovascular: Reports RRR, No rub and No murmur GI/: Reports Soft, Nontender, No masses and Bowel sounds normal Musculoskeletal: Reports Normal strength, ROM intact and Other (marked bilateral swelling to the knees, bilateral skin erythema to the knees bilaterally) Skin: Reports Warm Neurological: Reports Alert and Oriented Psychiatric: Reports Affect appropriate and Mood appropriate Critical Care Note Critical Care Note Total Critical Care Time (mins): 0 Course Course Hematology/Chemistry: 06/12/22 15:00 06/12/22 15:00 Orders, Labs, Meds: Lab Review 06/12/22 06/12/22 06/12/22 14:47 14:47 15:00 WBC 7.57 RBC 4.16 L Hgb 11.5 L Hct 36.2 L MCV 87.0 MCH 27.6 MCHC 31.8 RDW Coeff of Awilda 15.4 H Plt Count 213 Immature Gran % (Auto) 0.3 Neut % (Auto) 59.9 Lymph % (Auto) 28.8 [place] % (Auto) 9.1 Eos % (Auto) 1.5 Baso % (Auto) 0.4 Neut # (Auto) 4.5 Lymph # (Auto) 2.2 [place] # (Auto) 0.7 Eos # (Auto) 0.1 Baso # (Auto) 0.0 Immature Gran # (Auto) 0.0 Sodium Potassium Chloride Carbon Dioxide Anion Gap BUN Creatinine Estimated GFR (MDRD) BUN/Creatinine Ratio Glucose Lactic Acid Calcium Total Bilirubin AST ALT Alkaline Phosphatase Total Protein Albumin Globulin Albumin/Globulin Ratio Influ A Molecular Assay Negative by naat Influ B Molecular Assay Negative by naat SARS CoV-2 RNA Rapid KHUSHI Negative 06/12/22 06/12/22 15:00 15:00 WBC RBC Hgb Hct MCV MCH MCHC RDW Coeff of Awilda Plt Count Immature Gran % (Auto) Neut % (Auto) Lymph % (Auto) [place] % (Auto) Eos % (Auto) Baso % (Auto) Neut # (Auto) Lymph # (Auto) [place] # (Auto) Eos # (Auto) Baso # (Auto) Immature Gran # (Auto) Sodium 139.6 Potassium 4.04 Chloride 106.9 Carbon Dioxide 29.1 Anion Gap 7.64 BUN 28.5 H Creatinine 1.27 Estimated GFR (MDRD) 42.00 BUN/Creatinine Ratio 22.44 Glucose 108.7 H Lactic Acid 1.87 Calcium 8.89 Total Bilirubin 1.00 AST 27.1 ALT 20.3 Alkaline Phosphatase 97.2 Total Protein 6.62 Albumin 3.61 Globulin 3.01 Albumin/Globulin Ratio 1.19 Influ A Molecular Assay Influ B Molecular Assay SARS CoV-2 RNA Rapid KHUSHI Orders Category Date Time Status Saline Lock [ED IV/MEDIPORT/POWERPORT] .ONCE EMERGENCY 06/12/22 14:34 Active BLOOD CULTURE Stat LAB 06/12/22 15:30 Received CBC W/ AUTO DIFF Stat LAB 06/12/22 15:00 Completed CMP [COMPREHENSIVE METABOLIC PANEL] Stat LAB 06/12/22 15:00 Completed COVID [SARS COV-2 RNA RAPID KHUSHI] Stat LAB 06/12/22 14:47 Completed LACTIC ACID Stat LAB 06/12/22 15:00 Completed MOLECULAR FLU A & B [FLU A/B MOLECULAR] Stat LAB 06/12/22 14:47 Completed 0.9 % Sodium Chloride [Saline Flush] MEDS 06/12/22 14:34 Active 1 syr IVF PRN PRN Ceftriaxone Sodium [Rocephin 2 gm Vial] MEDS 06/12/22 15:14 Discontinued 2 gm .ROUTE .STK-MED ONE Ceftriaxone Sodium [Rocephin 2 gm Vial] 2 gm MEDS 06/12/22 14:34 Discontinued 0.9 % Sodium Chloride [Sodium Chloride 100Ml] 100 ml IV ONCE Furosemide [Lasix] MEDS 06/12/22 14:34 Discontinued 80 mg IVP ONCE STA Medications Generic Name Dose Route Start Last Admin Trade Name Freq PRN Reason Stop Dose Admin Sodium Chloride 1 syr 06/12/22 14:34 0.9% Sodium Chloride 10 Ml Disp.Syrin IVF PRN PRN To flush IV Discontinued Medications Generic Name Dose Route Start Last Admin Trade Name Freq PRN Reason Stop Dose Admin Furosemide 80 mg 06/12/22 14:34 06/12/22 15:26 Furosemide Inj 100 Mg/10 Ml Vial IVP 06/12/22 14:35 80 mg ONCE STA Administration Ceftriaxone Sodium 2 gm/ 100 mls @ 100 mls/hr 06/12/22 14:34 06/12/22 15:26 Sodium Chloride IV 06/12/22 15:33 100 mls/hr ONCE ONE Administration Vital Signs: Temp Pulse Resp BP Pulse Ox 06/12/22 14:15 97.1 F L 100 20 117/76 97 Discharge Plan Discharge Patient Disposition: ADMITTED INPATIENT Discharge Problem: Bilateral lower leg cellulitis Did you review [place] [employer] for ALL controlled substances?: Not Applicable ED Provider: PATTI JUSTICE Condition: Serious Physician Progress Note: []
[2022-06-12] MEDS ORDERED: LASIX IVP STA (14:34)
[2022-06-12] MEDS ORDERED: ROCEPHIN 2 GM VIAL 2 GM in SODIUM CHLORIDE 100ML 100 ML IV ONE (14:34)
[2022-06-12] MEDS ORDERED: ROCEPHIN 2 GM VIAL ONE (15:14)
[2022-06-12 15:16] LABS: MOLECULAR FLU A NEGATIVE BY NAAT (NEGATIVE); MOLECULAR FLU B NEGATIVE BY NAAT (NEGATIVE)
[2022-06-12 15:16] LABS: BASOPHILS % (AUTO) 0.4 % (0.0-3.0); EOSINOPHILS # (AUTO) 0.1 K/ul (0.0-0.7); EOSINOPHILS % (AUTO) 1.5 % (0.0-7.0); HEMATOCRIT 36.2 % (37.0-47.0); HEMOGLOBIN 11.5 g/dl (12.0-16.0); IMMATURE GRANULOCYTE % (AUTO) 0.3 % (0.0-5.0); LYMPHOCYTES # (AUTO) 2.2 K/uL (0.60-3.4); LYMPHOCYTES % (AUTO) 28.8 (10.0-50.0); MEAN CORPUSCULAR HEMOGLOBIN 27.6 pg (27.0-31.0); MEAN CORPUSCULAR HGB CONC 31.8 (31.8-35.4); MONOCYTES # (AUTO) 0.7 K/uL (0.4-2.0); MONOCYTES % (AUTO) 9.1 (0-10); NEUTROPHILS # (AUTO) 4.5 K/ul (2.0-6.9); NEUTROPHILS % (AUTO) 59.9 % (42.2-75.2); PLATELET COUNT 213 10^3/uL (140-440); RDW COEFFICIENT OF VARIATION 15.4 % (11.6-14.8); RED BLOOD COUNT 4.16 10^6/ul (4.20-5.40); WHITE BLOOD COUNT 7.57 K/ul (4.6-10.2)
[2022-06-12 15:28] LABS: ALANINE AMINOTRANSFERASE 20.3 U/L (0-35); ALBUMIN 3.61 g/dL (3.5-5.0); ALKALINE PHOSPHATASE 97.2 U/L (53-141); ASPARTATE AMINO TRANSFERASE 27.1 U/L (14-36); BLOOD UREA NITROGEN 28.5 mg/dL (7-17); CALCIUM 8.89 mg/dL (8.4-10.2); CARBON DIOXIDE 29.1 mmol/L (22-30.0); CHLORIDE 106.9 mmol/L (98-107); CREATININE 1.27 mg/dL (0.60-1.30); GLUCOSE 108.7 mg/dL (74-106); POTASSIUM 4.04 mmol/L (3.5-5.1); SODIUM 139.6 mmol/L (134.5-145); TOTAL PROTEIN 6.62 g/dL (6.3-8.2)
[2022-06-12 15:29] LABS: SARS COV-2 RNA RAPID NAAT NEGATIVE (NEGATIVE)
--- NOTE | 2022-06-12 16:03 | PCM ---
Chief Complaint Chief Complaint: leg swelling and erythema bilaterally History of Present Illness History of Present Illness: Patient presents with a 4-5 day history of increasing swelling and erythema of both legs. Review of Systems Constitutional: Reports No symptoms Eyes: Reports No symptoms Ears: Reports No symptoms Nose: Reports No symptoms Throat: Reports No symptoms Mouth: Reports No symptoms Respiratory: Reports No symptoms Cardiovascular: Reports Edema Gastrointestinal: Reports No symptoms Genitourinary: Reports No symptoms Neurological: Reports No symptoms Musculoskeletal: Reports No symptoms Skin: Reports Other (leg erythema bilaterally) Immunology: Reports No symptoms Hematology: Reports No symptoms Endocrine: Reports No symptoms Psychiatric: Reports No symptoms Allergies Allergies Allergy/AdvReac Type Severity Reaction Status Date / Time No Known Allergies Allergy Verified 05/25/22 11:13 [facility] Medical History (Updated 06/12/22 @ 14:49 by PATTI JUSTICE MD) Back pain Convulsions Hypertension Leg pain Normal menstrual period Surgical History History of surgery Social History Smoking and tobacco status: Current every day smoker History of recent travel: No Medications Medications: Medications Generic Name Dose Route Start Last Admin Trade Name Freq PRN Reason Stop Dose Admin Sodium Chloride 1 syr 06/12/22 14:34 0.9% Sodium Chloride 10 Ml Disp.Syrin IVF PRN PRN To flush IV Body Composition Height: 5 ft 8 in Weight: 140.614 kg Body Mass Index (BMI): 47.1 Vital Signs Temperature: 97.1 F Pulse Rate: 100 Respiratory Rate: 20 Blood Pressure: 117/76 O2 Sat by Pulse Oximetry: 97 Physical Examination Appearance: Reports No pain distress and Obese Ill-appearing: Mild Pain Distress: None Eyes: Reports Not Examined ENT: Reports Nose normal and Oropharynx normal Neck: Supple Respiratory: Reports Airway patent, Breath sounds clear and Breath sounds equal Cardiovascular: Reports RRR, No rub and No murmur GI/: Reports Soft, Nontender, No masses, Bowel sounds normal and No Organomegaly Musculoskeletal: Reports Other (marked bilateral pitting edema to the knees with associated erythema and warmth) Skin: Reports Warm and Dry Neurological: Reports Motor intact, Alert and Oriented Psychiatric: Reports Affect appropriate and Mood appropriate Lab/Tests/Diagnostic Imaging Lab/Tests/Diagnostic Imaging: Lab Review 01/08/3006/12/22 06/12/22 14:47 14:47 15:00 WBC 7.57 RBC 4.16 L Hgb 11.5 L Hct 36.2 L MCV 87.0 MCH 27.6 MCHC 31.8 RDW Coeff of Awilda 15.4 H Plt Count 213 Immature Gran % (Auto) 0.3 Neut % (Auto) 59.9 Lymph % (Auto) 28.8 [place] % (Auto) 9.1 Eos % (Auto) 1.5 Baso % (Auto) 0.4 Neut # (Auto) 4.5 Lymph # (Auto) 2.2 [place] # (Auto) 0.7 Eos # (Auto) 0.1 Baso # (Auto) 0.0 Immature Gran # (Auto) 0.0 Sodium Potassium Chloride Carbon Dioxide Anion Gap BUN Creatinine Estimated GFR (MDRD) BUN/Creatinine Ratio Glucose Lactic Acid Calcium Total Bilirubin AST ALT Alkaline Phosphatase Total Protein Albumin Globulin Albumin/Globulin Ratio Influ A Molecular Assay Negative by naat Influ B Molecular Assay Negative by naat SARS CoV-2 RNA Rapid KHUSHI Negative 06/12/22 06/12/22 15:00 15:00 WBC RBC Hgb Hct MCV MCH MCHC RDW Coeff of Awilda Plt Count Immature Gran % (Auto) Neut % (Auto) Lymph % (Auto) [place] % (Auto) Eos % (Auto) Baso % (Auto) Neut # (Auto) Lymph # (Auto) [place] # (Auto) Eos # (Auto) Baso # (Auto) Immature Gran # (Auto) Sodium 139.6 Potassium 4.04 Chloride 106.9 Carbon Dioxide 29.1 Anion Gap 7.64 BUN 28.5 H Creatinine 1.27 Estimated GFR (MDRD) 42.00 BUN/Creatinine Ratio 22.44 Glucose 108.7 H Lactic Acid 1.87 Calcium 8.89 Total Bilirubin 1.00 AST 27.1 ALT 20.3 Alkaline Phosphatase 97.2 Total Protein 6.62 Albumin 3.61 Globulin 3.01 Albumin/Globulin Ratio 1.19 Influ A Molecular Assay Influ B Molecular Assay SARS CoV-2 RNA Rapid KHUSHI Orders Category Date Time Status Saline Lock [ED IV/MEDIPORT/POWERPORT] .ONCE EMERGENCY 06/12/22 14:34 Active BLOOD CULTURE Stat LAB 06/12/22 15:30 Received CBC W/ AUTO DIFF Stat LAB 06/12/22 15:00 Completed CMP [COMPREHENSIVE METABOLIC PANEL] Stat LAB 06/12/22 15:00 Completed COVID [SARS COV-2 RNA RAPID KHUSHI] Stat LAB 06/12/22 14:47 Completed LACTIC ACID Stat LAB 06/12/22 15:00 Completed MOLECULAR FLU A & B [FLU A/B MOLECULAR] Stat LAB 06/12/22 14:47 Completed 0.9 % Sodium Chloride [Saline Flush] MEDS 06/12/22 14:34 Active 1 syr IVF PRN PRN Ceftriaxone Sodium [Rocephin 2 gm Vial] MEDS 06/12/22 15:14 Discontinued 2 gm .ROUTE .STK-MED ONE Ceftriaxone Sodium [Rocephin 2 gm Vial] 2 gm MEDS 06/12/22 14:34 Discontinued 0.9 % Sodium Chloride [Sodium Chloride 100Ml] 100 ml IV ONCE Furosemide [Lasix] MEDS 06/12/22 14:34 Discontinued 80 mg IVP ONCE STA Medications Generic Name Dose Route Start Last Admin Trade Name Freq PRN Reason Stop Dose Admin Sodium Chloride 1 syr 06/12/22 14:34 0.9% Sodium Chloride 10 Ml Disp.Syrin IVF PRN PRN To flush IV Discontinued Medications Generic Name Dose Route Start Last Admin Trade Name Freq PRN Reason Stop Dose Admin Furosemide 80 mg 06/12/22 14:34 06/12/22 15:26 Furosemide Inj 100 Mg/10 Ml Vial IVP 06/12/22 14:35 80 mg ONCE STA Administration Ceftriaxone Sodium 2 gm/ 100 mls @ 100 mls/hr 06/12/22 14:34 06/12/22 15:26 Sodium Chloride IV 06/12/22 15:33 100 mls/hr ONCE ONE Administration Assessment (1) Bilateral lower leg cellulitis: Status: Acute Code(s): L03.116 - Cellulitis of left lower limb; L03.115 - Cellulitis of right lower limb SNOMED Code(s): 921167402 Plan Plan: Patient will be admitted and receive IV lasix and IV antibiotics.
[2022-06-12] MEDS: LOVENOX SUBCUT SCH (17:15)
[2022-06-12 17:56] VITALS: BMI 52.9
[2022-06-12] MEDS: SPIRIVA IH SCH (20:49)
[2022-06-12] MEDS: FLEXERIL PO SCH (20:50)
[2022-06-12] MEDS: COZAAR PO SCH ×2 (20:52→21:15)
[2022-06-12] MEDS: DESYREL PO SCH (20:52)
[2022-06-12] MEDS: LOPRESSOR PO SCH (20:53)
[2022-06-12] MEDS: REQUIP PO SCH (20:53)
[2022-06-12] MEDS: ADDERALL PO SCH (20:58)
[2022-06-12] MEDS ORDERED: PEPCID PO SCH (21:00)
[2022-06-12] MEDS ORDERED: XANAX PO SCH (21:00)
[2022-06-12] MEDS ORDERED: NEURONTIN PO SCH (21:00)
[2022-06-12] MEDS: PERCOCET 10-325 PO PRN (21:09)
[2022-06-12] MEDS ORDERED: NEURONTIN PO PRN (21:21)
[2022-06-13] MEDS: PERCOCET 10-325 PO PRN ×3 (05:30→20:08)
[2022-06-13 05:38] LABS: BASOPHILS % (AUTO) 0.4 % (0.0-3.0); EOSINOPHILS # (AUTO) 0.1 K/ul (0.0-0.7); EOSINOPHILS % (AUTO) 1.6 % (0.0-7.0); HEMATOCRIT 33.1 % (37.0-47.0); HEMOGLOBIN 10.5 g/dl (12.0-16.0); IMMATURE GRANULOCYTE % (AUTO) 0.1 % (0.0-5.0); LYMPHOCYTES # (AUTO) 2.5 K/uL (0.60-3.4); LYMPHOCYTES % (AUTO) 37.2 (10.0-50.0); MEAN CORPUSCULAR HEMOGLOBIN 27.6 pg (27.0-31.0); MEAN CORPUSCULAR HGB CONC 31.7 (31.8-35.4); MEAN CORPUSCULAR VOLUME 86.9 fl (81.0-99.0); MONOCYTES # (AUTO) 0.5 K/uL (0.4-2.0); MONOCYTES % (AUTO) 6.9 (0-10); NEUTROPHILS # (AUTO) 3.6 K/ul (2.0-6.9); NEUTROPHILS % (AUTO) 53.8 % (42.2-75.2); PLATELET COUNT 193 10^3/uL (140-440); RDW COEFFICIENT OF VARIATION 15.4 % (11.6-14.8); RED BLOOD COUNT 3.81 10^6/ul (4.20-5.40); WHITE BLOOD COUNT 6.67 K/ul (4.6-10.2)
[2022-06-13 05:54] LABS: ALANINE AMINOTRANSFERASE 18.2 U/L (0-35); ALBUMIN 3.29 g/dL (3.5-5.0); ASPARTATE AMINO TRANSFERASE 22.5 U/L (14-36); BILIRUBIN,TOTAL 0.69 mg/dL (0.2-1.3); BLOOD UREA NITROGEN 27.3 mg/dL (7-17); CALCIUM 8.66 mg/dL (8.4-10.2); CARBON DIOXIDE 28.6 mmol/L (22-30.0); CHLORIDE 106.4 mmol/L (98-107); CREATININE 1.31 mg/dL (0.60-1.30); POTASSIUM 3.61 mmol/L (3.5-5.1); SODIUM 138.9 mmol/L (134.5-145); TOTAL PROTEIN 6.16 g/dL (6.3-8.2)
[2022-06-13] MEDS ORDERED: LASIX IVP SCH ×2 (06:30)
[2022-06-13] MEDS ORDERED: XANAX PO PRN (07:44)
[2022-06-13] MEDS ORDERED: ROCEPHIN 2 GM VIAL 2 GM in SODIUM CHLORIDE 100ML 100 ML IV SCH (09:00)
[2022-06-13] MEDS: ADDERALL PO SCH ×2 (09:24→11:31)
[2022-06-13] MEDS: LOPRESSOR PO SCH ×2 (09:24→20:08)
[2022-06-13] MEDS: CLARITIN PO SCH (09:25)
[2022-06-13] MEDS: K-DUR PO SCH (09:26)
--- NOTE | 2022-06-13 09:26 | PCM.PROG ---
Date Seen by Provider: 06/13/22 Time Seen by Provider: 09:22 Subjective: dx. bilateral lower leg cellulitis mod to severe pain treated w/ Percocet Objective: Vitals: T=97.1 F, P=87, R=18, ES=072/68, SPO2=99 HEENT: []conjunctiva clear Neck: []supple Lungs: [] no respiratory distress CVS: []rrr Abdomen: []nondistended Extremities: []erythema of lower legs Neurological: []alert and oriented Skin: []edema Lab/Tests/Diagnostic Imaging: [] wbc 6.6, K+3.6 (1) Bilateral lower leg cellulitis: Status: Acute Code(s): L03.116 - Cellulitis of left lower limb; L03.115 - Cellulitis of right lower limb SNOMED Code(s): 626172844 Plan: obtain u/s bilateral lower extremities to exclude dvt, continue lovenox 40 sq qday, add Vanco and Pharm dosing, start iv ns 75cc/hr, continue 2liters nc O2
[2022-06-13] MEDS: PEPCID PO SCH ×2 (09:29→16:55)
[2022-06-13] MEDS: SINGULAIR PO SCH (09:29)
[2022-06-13] MEDS: FLEXERIL PO SCH ×3 (09:31→20:08)
[2022-06-13] MEDS: LOVENOX SUBCUT SCH (09:32)
[2022-06-13] MEDS: ROCEPHIN 2 GM/50 ML D5W 2 GM/50 ML BAG IV SCH (09:33)
[2022-06-13] MEDS: SPIRIVA IH SCH (09:35)
[2022-06-13] MEDS: COZAAR PO SCH ×2 (10:34→20:08)
[2022-06-13] MEDS: SODIUM CHLORIDE 1,000 ML IV SCH (10:34)
[2022-06-13] MEDS: REQUIP PO SCH ×2 (10:35→20:07)
[2022-06-13] MEDS: VANCOMYCIN 1 GRAM/200 ML PREMIX 2 GM/400 ML BAG IV SCH (13:00)
--- NOTE | 2022-06-13 14:19 | US ---
EXAM: Ultrasound venous Doppler right and left lower extermity HISTORY: Severe pain, redness, edema COMPARISON: None TECHNIQUE: Venous duplex ultrasound of the right and left lower extremity was performed. Greyscale, color doppler, spectral doppler imaging performed. FINDINGS: Examination is technically limited due to patient body habitus and edema and patient abilit y to tolerate examination. There is normal color flow and compression of the right and left common f emoral, greater saphenous, profunda femoral, femoral, popliteal, peroneal, posterior tibial, and ante rior tibial veins without evidence of intraluminal thrombus. Bilateral lower extremity subcutaneous edema. IMPRESSION: No evidence for right or left lower extremity deep venous thrombosis. Technically limit ed examination.
[2022-06-13] MEDS: LASIX IVP SCH (17:00)
[2022-06-13] MEDS: NON-FORMULARY MEDICATION (Lumateperone [Caplyta] 42 mg capsule) PO SCH ×2 (19:11→20:16)
[2022-06-13] MEDS: DESYREL PO SCH (20:15)
[2022-06-14] MEDS: SODIUM CHLORIDE 1,000 ML IV SCH (01:04)
[2022-06-14] MEDS: PEPCID PO SCH ×2 (05:52→17:23)
[2022-06-14 06:00] LABS: BASOPHILS % (AUTO) 0.5 % (0.0-3.0); EOSINOPHILS # (AUTO) 0.1 K/ul (0.0-0.7); EOSINOPHILS % (AUTO) 2.2 % (0.0-7.0); HEMATOCRIT 31.6 % (37.0-47.0); IMMATURE GRANULOCYTE % (AUTO) 0.2 % (0.0-5.0); LYMPHOCYTES # (AUTO) 2.3 K/uL (0.60-3.4); LYMPHOCYTES % (AUTO) 39.6 (10.0-50.0); MEAN CORPUSCULAR HEMOGLOBIN 27.5 pg (27.0-31.0); MEAN CORPUSCULAR HGB CONC 31.6 (31.8-35.4); MEAN CORPUSCULAR VOLUME 86.8 fl (81.0-99.0); MONOCYTES # (AUTO) 0.6 K/uL (0.4-2.0); MONOCYTES % (AUTO) 9.6 (0-10); NEUTROPHILS # (AUTO) 2.8 K/ul (2.0-6.9); NEUTROPHILS % (AUTO) 47.9 % (42.2-75.2); PLATELET COUNT 192 10^3/uL (140-440); RDW COEFFICIENT OF VARIATION 15.1 % (11.6-14.8); RED BLOOD COUNT 3.64 10^6/ul (4.20-5.40); WHITE BLOOD COUNT 5.83 K/ul (4.6-10.2)
[2022-06-14 06:14] LABS: BLOOD UREA NITROGEN 20.6 mg/dL (7-17); CALCIUM 8.51 mg/dL (8.4-10.2); CARBON DIOXIDE 28.7 mmol/L (22-30.0); CHLORIDE 108.1 mmol/L (98-107); CREATININE 1.2 mg/dL (0.60-1.30); GLUCOSE 98.6 mg/dL (74-106); POTASSIUM 3.41 mmol/L (3.5-5.1); SODIUM 138.4 mmol/L (134.5-145)
[2022-06-14] MEDS: LASIX IVP SCH ×2 (06:22→17:23)
[2022-06-14] MEDS ORDERED: ROCEPHIN 2 GM VIAL 2 GM in SODIUM CHLORIDE 100ML 100 ML IV SCH (09:00)
--- NOTE | 2022-06-14 10:01 | PCM.PROG ---
Date Seen by Provider: 06/14/22 Time Seen by Provider: 09:00 Subjective: Patient has no complaints. Feeling some better. Objective: Vitals: T=97.2 F, P=79, R=20, BP=98/57, SPO2=95 Alert and in NAD. HEENT: [] Neck: [] Lungs: [] Chest clear. CVS: [] RRR Abdomen: [] Extremities: []Edema improved. Erythema persists, though a bit less. Neurological: [] Skin: [] Lab/Tests/Diagnostic Imaging: [] (1) Bilateral lower leg cellulitis: Status: Acute Code(s): L03.116 - Cellulitis of left lower limb; L03.115 - Cellulitis of right lower limb SNOMED Code(s): 170781300 (2) Hypokalemia: Status: Acute Code(s): E87.6 - Hypokalemia SNOMED Code(s): 42164551 Assessment: potassium 3.4 Plan: Replace potassium. Continue diuresis. Change antibiotic coverage to zosyn and vancomycin.
[2022-06-14] MEDS: ROCEPHIN 2 GM/50 ML D5W 2 GM/50 ML BAG IV SCH (10:16)
[2022-06-14] MEDS: SINGULAIR PO SCH (10:17)
[2022-06-14] MEDS: CLARITIN PO SCH (10:18)
[2022-06-14] MEDS ORDERED: K-DUR ONE (10:26)
[2022-06-14] MEDS: LOVENOX SUBCUT SCH (10:29)
[2022-06-14] MEDS ORDERED: ZOSYN 3.375 GM 3.375 GM in SODIUM CHLORIDE 100ML 100 ML IV SCH (10:30)
[2022-06-14] MEDS: K-DUR PO SCH ×2 (10:54→11:08)
[2022-06-14] MEDS: PERCOCET 10-325 PO PRN ×2 (10:54→19:33)
[2022-06-14] MEDS: SPIRIVA IH SCH (11:00)
[2022-06-14] MEDS: COZAAR PO SCH ×2 (11:06→21:09)
[2022-06-14] MEDS: FLEXERIL PO SCH ×3 (11:06→21:09)
[2022-06-14] MEDS: ADDERALL PO SCH ×2 (11:06→12:00)
[2022-06-14] MEDS: REQUIP PO SCH ×2 (11:07→21:08)
[2022-06-14] MEDS: LOPRESSOR PO SCH ×2 (11:07→21:08)
[2022-06-14] MEDS: VANCOMYCIN 1 GRAM/200 ML PREMIX 2 GM/400 ML BAG IV SCH (11:26)
[2022-06-14] MEDS: MAXIPIME 2 GM/50 ML D5W 2 GM/50 ML BAG IV SCH ×2 (15:03→21:06)
[2022-06-14] MEDS: NON-FORMULARY MEDICATION (Lumateperone [Caplyta] 42 mg capsule) PO SCH (21:07)
[2022-06-14] MEDS: DESYREL PO SCH (21:09)
[2022-06-15] MEDS: PERCOCET 10-325 PO PRN ×2 (01:22→08:24)
[2022-06-15] MEDS: MAXIPIME 2 GM/50 ML D5W 2 GM/50 ML BAG IV SCH ×2 (04:31→13:15)
[2022-06-15 05:29] LABS: BLOOD UREA NITROGEN 16.5 mg/dL (7-17); CALCIUM 8.73 mg/dL (8.4-10.2); CARBON DIOXIDE 28.8 mmol/L (22-30.0); CHLORIDE 107.8 mmol/L (98-107); CREATININE 1.09 mg/dL (0.60-1.30); POTASSIUM 3.29 mmol/L (3.5-5.1); SODIUM 138.4 mmol/L (134.5-145)
[2022-06-15] MEDS: LASIX IVP SCH (06:23)
[2022-06-15] MEDS: PEPCID PO SCH (06:25)
[2022-06-15] MEDS ORDERED: PRILOSEC PO SCH (06:30)
[2022-06-15] MEDS: SODIUM CHLORIDE 1,000 ML IV SCH (06:53)
[2022-06-15] MEDS: SPIRIVA IH SCH (08:23)
[2022-06-15] MEDS: SINGULAIR PO SCH (08:25)
[2022-06-15] MEDS: CLARITIN PO SCH (08:26)
[2022-06-15] MEDS: K-DUR PO SCH (08:26)
[2022-06-15] MEDS: LOVENOX SUBCUT SCH (08:27)
[2022-06-15] MEDS ORDERED: K-DUR PO SCH (08:30)
[2022-06-15] MEDS: VANCOMYCIN 1 GRAM/200 ML PREMIX 2 GM/400 ML BAG IV SCH (08:31)
[2022-06-15] MEDS ORDERED: ROCEPHIN 2 GM VIAL 2 GM in SODIUM CHLORIDE 100ML 100 ML IV SCH (09:00)
[2022-06-15] MEDS: ADDERALL PO SCH ×3 (09:42→13:14)
--- NOTE | 2022-06-15 10:24 | PCM.DC ---
Final Diagnosis: cellulitis bilateral lower legs Physical Exam Appearance: Well-appearing and Obese Ill-appearing: None Pain Distress: None Eyes: Conjunctiva clear ENT: Oropharynx normal Neck: Supple Respiratory: Airway patent, Breath sounds clear and Breath sounds equal GI/: Soft and Nontender Musculoskeletal: ROM intact Skin: Warm and Dry Neurological: Alert and Oriented Psychiatric: Affect appropriate (1) Bilateral lower leg cellulitis: Status: Acute Code(s): L03.116 - Cellulitis of left lower limb; L03.115 - Cellulitis of right lower limb SNOMED Code(s): 018480740 (2) Hypokalemia: Status: Acute Code(s): E87.6 - Hypokalemia SNOMED Code(s): 42170914 Reason for Hospitalization: bilateral lower leg cellulitis Prognosis/Condition at Discharge: fair Medications at Discharge: home meds, plus bactrim ds bid po #20, and augmentin po 875mg qday #20 Lab/Diagnostics: ux per Rad neg dvt bilateral lower extremities Education Provided to Patient and Family: leg elevation at rest Follow-ups: clinic Discharge Disposition: Home Hospital Course: pt improved Plan: d/c home, 30min spent
[2022-06-15] MEDS: COZAAR PO SCH (10:29)
[2022-06-15] MEDS: LOPRESSOR PO SCH (10:30)
[2022-06-15] MEDS: FLEXERIL PO SCH (10:30)
[2022-06-15] MEDS: REQUIP PO SCH (10:30)
[2022-06-15 12:38] VITALS: BP 127/80; TEMP 97.9
== END 2022-06-15 13:12 | disposition home or self-care (01) ==
LOC: ED 14:13 → MEDSURG A 15:58 → INTOOBSV 15:58 → MEDSURG A 17:20
PROVIDERS: ADMIT Surgery; ATTEND Emergency Medicine Emergency Medical Services
DX: Z20.822 Contact with and (suspected) exposure to COVID-19; L03.115 Cellulitis of right lower limb; Z79.899 Other long term (current) drug therapy; M54.50 Low back pain, unspecified; Z51.81 Encounter for therapeutic drug level monitoring; I10 Essential (primary) hypertension; E87.6 Hypokalemia; L03.116 Cellulitis of left lower limb

== ENCOUNTER 2023-06-03 17:39 | Observation (INO) ==
--- NOTE | 2023-06-03 18:11 | ED.PDOC ---
General ED Provider: Dr. JEB LOMAX DO Chief Complaint: Extremity Pain/Injury Stated Complaint: Patient is a 62 yo F here for RLE redness Patient arrives afebrile and vitally stable by POV, required assistance out of her car with wheelchair She reports hx of idopathic BL LE lymphadema She called PCP a week ago for worse swelling and bumex was doubled She denies any injuries or cuts to RLE but feels there is an infection She reports chronic BL LE pain at baseline She denies fevers or chills No hx of BL LE surgeries Patient stable Exam concenring for cellulitis to RLE knee down, no gross abscess NVI BL LE Time Seen by Provider: 06/03/23 17:44 Information Source: Patient Primary Care Provider: NICOLA NYE Nursing and Triage Documentation Reviewed and Agree: Yes What is Opioid Naive?: *Opioid Naive implies the patient is not already taking opioids or not chronically receiving opioids on a daily basis. *PRN dosing is not "usually" associated with tolerance. *Patients are at higher risk of over-sedation and aspiration. What is Opioid Tolerant?: *Opioid Tolerance implies less than the expected response to an opioid. *Acquired tolerance is defined by the patient taking 60mg of oral morphine daily (or equianalgesic dose of another opioid) for 1 week or more. *Often associated with chronic pain. *May take more than usual dose to achieve desired pain control. 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 (ICD-10) 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, not elsewhere classified (ICD-10) COPD (chronic obstructive pulmonary disease) J44.9 - Chronic obstructive pulmonary disease, unspecified (ICD-10) Hypertension I10 - Essential (primary) hypertension (ICD-10) Normal menstrual period Back pain M54.9 - Dorsalgia, unspecified (ICD-10) Convulsions R56.9 - Unspecified convulsions (ICD-10) Leg pain M79.606 - Pain in leg, unspecified (ICD-10) Family History Mother Hypertension FATHER Cirrhosis of liver Alcohol abuse BROTHER Depression Social History Smoking and tobacco status: Current every day smoker Tobacco type: cigarettes Smoking packs per day: 1 Smoking cigarettes per day: 20.0 Years smoked: 55 Quit status: considering quitting Alcohol intake: never Substance use type: other Details: pt makes a pain cream, has a medical marijuana card Gina/restorationist: NONE Special gina needs: No Agree to transfusion: Yes Adopted: No Caregiver/support person: No Household members: none Housing: other Marital status: D Lives independently: Yes Number of children: 1 Number of grandchildren: 0 Highest education level completed: high school graduate Financial difficulty paying for basics: somewhat hard service: No Current occupational status: disabled Pets and animals: Yes (3 dogs) History of recent travel: No Current gender identity: female Water heater temperature set < 120 degrees: Yes Working smoke detector in home: Yes Fire extinguisher in home: Yes Carbon monoxide detector in home: Yes Firearms in home: No Surgical History History of appendectomy Z90.49 - Acquired absence of other specified parts of digestive tract (ICD- 10) H/O knee surgery Z98.890 - Other specified postprocedural states (ICD-10) History of cholecystectomy Z90.49 - Acquired absence of other specified parts of digestive tract (ICD- 10) History of partial mastectomy of both breasts Z90.13 - Acquired absence of bilateral breasts and nipples (ICD-10) Gastric bypass status for obesity Z98.84 - Bariatric surgery status (ICD-10) Previous back surgery Z98.890 - Other specified postprocedural states (ICD-10) Female Reproductive History Menstrual Hx Hysterectomy: Yes Hx Tubal Ligation: No Physical Exam Physical Exam Appearance: Reports Well-appearing and Well-nourished Ill-appearing: Not Applicable Pain Distress: Mild Eyes: Reports ANDRES and EOMI ENT: Reports Ears normal, Nose normal and Oropharynx normal Neck: Supple Respiratory: Reports Airway patent and Breath sounds clear Cardiovascular: Reports RRR (HR 90 for my exam) and Pulses normal GI/: Reports Soft, Nontender and Other (Central abdominal obesity) Musculoskeletal: Reports Normal strength, ROM intact and Other (BL LE 3+ edema to mid shetty) Skin: Reports Warm, Dry and Other (RLE cellulitis, no lymphangitis, circuferential shetty/calf, no lacerations, no ballotment, no skin slouging, negative nikoslky sign, no RLE bleeidng or discharge, or wheeping, chronic byron stasis bronzing) Neurological: Reports Sensation intact and Motor intact Psychiatric: Reports Affect appropriate and Mood appropriate Course Course 06/03/23 18:10 06/03/23 21:22 Orders, Labs, Meds: Lab Review 06/03/23 06/03/23 18:10 21:22 WBC 12.06 H RBC 3.78 L Hgb 11.6 L Hct 35.5 L MCV 93.9 MCH 30.7 MCHC 32.7 RDW Coeff of Awilda 13.9 Plt Count 160 Immature Gran % (Auto) 0.4 Neut % (Auto) 70.0 Lymph % (Auto) 24.4 [place] % (Auto) 4.6 Eos % (Auto) 0.5 Baso % (Auto) 0.1 Neut # (Auto) 8.5 H Lymph # (Auto) 2.9 [place] # (Auto) 0.6 Eos # (Auto) 0.1 Baso # (Auto) 0.0 Immature Gran # (Auto) 0.1 Sodium 133.3 L 132.2 L Potassium 3.61 3.54 Chloride 100.1 104.2 Carbon Dioxide 25.6 18.4 L D Anion Gap 11.21 13.14 BUN 58.2 H 52.7 H Creatinine 2.11 H 1.86 H Estimated GFR (MDRD) 24.00 27.00 BUN/Creatinine Ratio 27.58 28.33 Glucose 105.5 92.4 Lactic Acid 1.25 Calcium 8.67 8.62 Total Bilirubin 1.49 H AST 26.6 ALT 27.5 Alkaline Phosphatase 57.7 Total Protein 7.13 Albumin 3.87 Globulin 3.26 Albumin/Globulin Ratio 1.18 Orders Category Date Time Status ADMIT OBSERVATION [PLACE PATIENT OBSERVATION] .TO ADMISSION 06/03/23 22:46 Active MEDSURG (NON-MONITORED BED) ACTIVITY .Up With Assistance CARE 06/03/23 22:49 Active INTAKE & OUTPUT Q8HR CARE 06/03/23 22:49 Active NPO REMINDER: IMAGING ONCE CARE 06/03/23 18:03 Active NPO REMINDER: IMAGING ONCE CARE 06/03/23 18:04 Active VITAL SIGNS Q4HR CARE 06/03/23 22:49 Active CARDIAC DIET DIETARY 06/04/23 Breakfast Ordered ED IV/MEDIPORT/POWERPORT .ONCE EMERGENCY 06/03/23 18:01 Active BMP [BASIC METABOLIC PANEL] Stat LAB 06/03/23 21:22 Completed CBC W/ AUTO DIFF DAILY@0600 LAB 06/04/23 06:00 Ordered CBC W/ AUTO DIFF DAILY@0600 LAB 06/05/23 06:00 Ordered CBC W/ AUTO DIFF Stat LAB 06/03/23 18:10 Completed COMPREHENSIVE METABOLIC PANEL DAILY@0600 LAB 06/04/23 06:00 Ordered COMPREHENSIVE METABOLIC PANEL DAILY@0600 LAB 06/05/23 06:00 Ordered COMPREHENSIVE METABOLIC PANEL Stat LAB 06/03/23 18:10 Completed LACTIC ACID Stat LAB 06/03/23 18:10 Completed SARS COV-2 RNA RAPID KHUSHI Stat LAB 06/03/23 22:45 Received 0.9 % Sodium Chloride [Saline Flush] Meds 06/03/23 18:01 Active 1 syr IVF PRN PRN Acetaminophen [Tylenol] Meds 06/03/23 22:49 Active 650 mg PO Q4H PRN Cefazolin Sodium/Dextrose,Iso [Ancef 1 gm/50 ml D5w] Meds 06/03/23 23:00 Ordered 2 gm in 100 ml IV Q8HR Cephalexin [Keflex] Meds 06/03/23 22:45 Discontinued 500 mg PO ONCE ONE Enoxaparin Sodium [Lovenox] Meds 06/03/23 22:43 Discontinued 40 mg SUBCUT ONCE ONE Hydrocodone Bit/Acetaminophen [[place] 10-325] Meds 06/03/23 22:46 Discontinued 1 tab PO ONCE ONE Ondansetron HCl/Pf [Zofran 4 mg/2 ml] Meds 06/03/23 22:49 Active 4 mg IVP Q6H PRN Ringers Lactated Solution [Lactated Ringers] 1,000 ml Meds 06/03/23 23:00 Active IV 75 mls/hr Sodium Chloride 0.9% [Sodium Chloride] 1,000 ml Meds 06/03/23 18:[address] ANKLE RIGHT WO CONTRAST Stat RADS 06/03/23 18:[address] FOOT RIGHT WITHOUT CONTRAST Stat RADS 06/03/23 18:[address] KNEE RIGHT WITHOUT CONTRAST Stat RADS 06/03/23 18:[address] TIB/FIB RIGHT WO CONTRAST Stat RADS 06/03/23 18:35 Completed US VENOUS SCAN RT LEG [U/S VENOUS SCAN RT LEG] Routine RADS 06/04/23 06:00 Ordered Medications Generic Name Dose Route Start Last Admin Trade Name Freq PRN Reason Stop Dose Admin Acetaminophen 650 mg 06/03/23 22:49 Acetaminophen 325 Mg Tablet PO Q4H PRN Mild Pain Lactated Ringer's 1,000 mls @ 75 mls/hr 06/03/23 23:00 Lactated Ringers IV .[id number] MARCELINO Cefazolin Sodium/Dextrose 2 gm in 100 mls @ 150 mls/hr 06/03/23 23:00 Ancef 1 Gm/50 Ml D5w IV 06/06/23 22:59 Q8HR MARCELINO Ondansetron HCl 4 mg 06/03/23 22:49 Ondansetron Hcl/Pf 4 Mg/2 Ml Sdv IVP Q6H PRN Nausea / Vomiting Sodium Chloride 1 syr 06/03/23 18:01 0.9% Sodium Chloride 10 Ml Disp.Syrin IVF PRN PRN To flush IV Discontinued Medications Generic Name Dose Route Start Last Admin Trade Name Freq PRN Reason Stop Dose Admin Hydrocodone Bitart/Acetaminophen 1 tab 06/03/23 22:46 Hydrocodone Bit/Acetaminophen 10/325 Mg Tablet PO 06/03/23 22:47 ONCE ONE Cephalexin 500 mg 06/03/23 22:45 Cephalexin 500 Mg Capsule PO 06/03/23 22:46 ONCE ONE Enoxaparin Sodium 40 mg 06/03/23 22:43 Enoxaparin Sodium 40 Mg/0.4 Ml Syr SUBCUT 06/03/23 22:44 ONCE ONE Sodium Chloride 1,000 mls @ 1,000 mls/hr 06/03/23 18:34 06/03/23 19:13 Sodium Chloride IV 06/03/23 19:33 1,000 mls/hr BOLUS ONE Administration Vital Signs: Temp Pulse Resp BP Pulse Ox 06/03/23 17:42 97.3 F L 105 H 18 107/[address] changed to non con due to GFR 24, likely from recent overuse of bumex MDM: patient is a 62 yo F here for R shetty cellulitis concern Patient afebrile and vitally stable Exam concerning for cellulitis superimposed on impressive BL LE lymphedema Hx from patient chart review by me 3+ labs and 3 + images reviewed by me NVI BL LE Consults To hospitalist EJ Strange Patient amenable to overnight stay for acute on chronic RYANN 2/2 increased bumex, oral antibiotics for cellulitis WDX: RLE cellulitis, lymphedema, ryann, discomfort acute on chronic moderate complexity DDX: I considered fracture, dislocation, abscess but these are less likely SDOH: patient will improve with gentle fluids and medication management Patient stable for admission All questions answered Discharge Plan Discharge Patient Disposition: PLACED OBSERVATION Discharge Problem: RYANN (acute kidney injury), Cellulitis of leg, right, Pain, Lymphedema Did you review [place] for ALL controlled substances?: Not Applicable ED Provider: JEB LOMAX Condition: Fair Physician Progress Note: []
[2023-06-03 18:14] LABS: BASOPHILS % (AUTO) 0.1 % (0.0-3.0); EOSINOPHILS # (AUTO) 0.1 K/ul (0.0-0.7); EOSINOPHILS % (AUTO) 0.5 % (0.0-7.0); HEMATOCRIT 35.5 % (37.0-47.0); HEMOGLOBIN 11.6 g/dl (12.0-16.0); IMMATURE GRANULOCYTE # (AUTO) 0.1 (0.0-1.0); IMMATURE GRANULOCYTE % (AUTO) 0.4 % (0.0-5.0); LYMPHOCYTES # (AUTO) 2.9 K/uL (0.60-3.4); LYMPHOCYTES % (AUTO) 24.4 (10.0-50.0); MEAN CORPUSCULAR HEMOGLOBIN 30.7 pg (27.0-31.0); MEAN CORPUSCULAR HGB CONC 32.7 (31.8-35.4); MEAN CORPUSCULAR VOLUME 93.9 fl (81.0-99.0); MONOCYTES # (AUTO) 0.6 K/uL (0.4-2.0); MONOCYTES % (AUTO) 4.6 (0-10); NEUTROPHILS # (AUTO) 8.5 K/ul (2.0-6.9); PLATELET COUNT 160 10^3/uL (140-440); RDW COEFFICIENT OF VARIATION 13.9 % (11.6-14.8); RED BLOOD COUNT 3.78 10^6/ul (4.20-5.40); WHITE BLOOD COUNT 12.06 K/ul (4.6-10.2)
[2023-06-03 18:29] LABS: ALANINE AMINOTRANSFERASE 27.5 U/L (0-35); ALBUMIN 3.87 g/dL (3.5-5.0); ALKALINE PHOSPHATASE 57.7 U/L (53-141); ASPARTATE AMINO TRANSFERASE 26.6 U/L (14-36); BILIRUBIN,TOTAL 1.49 mg/dL (0.2-1.3); BLOOD UREA NITROGEN 58.2 mg/dL (7-17); CALCIUM 8.67 mg/dL (8.4-10.2); CARBON DIOXIDE 25.6 mmol/L (22-30.0); CHLORIDE 100.1 mmol/L (98-107); CREATININE 2.11 mg/dL (0.60-1.30); GLUCOSE 105.5 mg/dL (74-106); POTASSIUM 3.61 mmol/L (3.5-5.1); SODIUM 133.3 mmol/L (134.5-145); TOTAL PROTEIN 7.13 g/dL (6.3-8.2)
[2023-06-03] MEDS ORDERED: SODIUM CHLORIDE 1,000 ML IV ONE (18:34)
--- NOTE | 2023-06-03 19:33 | CT ---
EXAM: CT RIGHT KNEE HISTORY: Cellulitis TECHNIQUE: CT right knee without contrast. Multiplanar images. FINDINGS: Diagnostic limitations exist without including intravenous contrast enhanced images. Previ ous total knee arthroplasty. Prosthetic units lead to artifact degrading image quality although appe ar seated without evidence of dislodgement or loosening. There is no visible joint effusion. The ramos bcutaneous fat is diffusely stranded consistent with edema and / or cellulitis. No defined or organi zed fluid collection to indicate abscess is suggested. The deep tissue planes and muscular tissues a re preserved. IMPRESSION: 1. Subcutaneous fat stranding indicating edema and / or cellulitis. No abscess or soft tissue gas i s seen. - - - - - All CT scans are performed using dose optimization techniques as appropriate to the performed exam an d include at least one of the following: Automated exposure control, adjustment of the mA and/or kV according t o size, and the use of iterative reconstruction technique.
--- NOTE | 2023-06-03 19:35 | CT ---
EXAM: CT RIGHT LOWER EXTREMITY WITHOUT CONTRAST History: Right lower extremity cellulitis Technique: 2.[address] of the right lower leg from the distal femur through the ankle. FINDINGS: Circumferential edema of the lower leg. Edema limited to the subcutaneous fat planes. No soft tissue gas organizing collection. Venous varicosities are present. No acute bony abnormalitie s. Knee arthroplasty in place. Impression: Marked subcutaneous edema of the lower leg. No organized inflammatory mass or collection. All CT scans are performed using dose optimization techniques as appropriate to the performed exam an d include at least one of the following: Automated exposure control, adjustment of the mA and/or kV according t o size, and the use of iterative reconstruction technique.
--- NOTE | 2023-06-03 19:37 | CT ---
EXAM: CT RIGHT FOOT WITHOUT CONTRAST History: Right lower extremity cellulitis Technique: 2.[address] of the right foot without contrast FINDINGS: Circumferential edema of the subcutaneous fat with skin thickening. No soft tissue gas. No organizing collection. Edema is confined to the subcutaneous planes. No acute bony abnormalities are seen. Impression: 1. No acute bony abnormalities of the foot 2. Circumferential edema and skin thickening. No organizing inflammatory mass or collection All CT scans are performed using dose optimization techniques as appropriate to the performed exam an d include at least one of the following: Automated exposure control, adjustment of the mA and/or kV according t o size, and the use of iterative reconstruction technique.
--- NOTE | 2023-06-03 19:39 | CT ---
EXAM: CT RIGHT ANKLE HISTORY: Cellulitis TECHNIQUE: CT right ankle without intravenous contrast. Multiplanar images. FINDINGS: Diagnostic limitations exist without including intravenous contrast enhanced images. There is relatively severe subcutaneous fat stranding and skin thickening consistent with edema and / or c ellulitis. There is no organized fluid collection to indicate abscesses. No soft tissue gas is seen . Varicose subcutaneous veins are suggested. The deep tissue planes and muscular tissues are preser jordana. Bones reveal no destructive process or evidence of osteomyelitis. Osteoarthritis is noted. IMPRESSION: 1. There is relatively severe subcutaneous fat stranding and skin thickening consistent with edema a nd / or cellulitis. There is no organized fluid collection to indicate abscesses. No soft tissue ga s is seen. 2. The deep tissue planes and muscular tissues are preserved. 3. Bones reveal no destructive process or evidence of osteomyelitis. - - - - - All CT scans are performed using dose optimization techniques as appropriate to the performed exam an d include at least one of the following: Automated exposure control, adjustment of the mA and/or kV according t o size, and the use of iterative reconstruction technique.
[2023-06-03 22:13] LABS: BLOOD UREA NITROGEN 52.7 mg/dL (7-17); CALCIUM 8.62 mg/dL (8.4-10.2); CARBON DIOXIDE 18.4 mmol/L (22-30.0); CHLORIDE 104.2 mmol/L (98-107); CREATININE 1.86 mg/dL (0.60-1.30); GLUCOSE 92.4 mg/dL (74-106); POTASSIUM 3.54 mmol/L (3.5-5.1); SODIUM 132.2 mmol/L (134.5-145)
[2023-06-03] MEDS ORDERED: LOVENOX SUBCUT ONE (22:43)
[2023-06-03] MEDS ORDERED: KEFLEX PO ONE (22:45)
[2023-06-03] MEDS ORDERED: NORCO 10-325 PO ONE (22:46)
[2023-06-03] MEDS ORDERED: TYLENOL PO PRN (22:49)
[2023-06-03] MEDS ORDERED: ZOFRAN 4 MG/2 ML IVP PRN (22:49)
[2023-06-03] MEDS ORDERED: LACTATED RINGERS 1,000 ML IV SCH (23:00)
[2023-06-03 23:32] LABS: SARS COV-2 RNA RAPID NAAT NEGATIVE (NEGATIVE)
[2023-06-04] MEDS: ANCEF 1 GM/50 ML D5W 2 GM/100 ML BAG IV SCH ×2 (00:44→05:14)
[2023-06-04 00:59] VITALS: BMI 49.1
[2023-06-04 05:53] LABS: BASOPHILS % (AUTO) 0.1 % (0.0-3.0); EOSINOPHILS # (AUTO) 0.1 K/ul (0.0-0.7); EOSINOPHILS % (AUTO) 0.9 % (0.0-7.0); HEMATOCRIT 31.8 % (37.0-47.0); HEMOGLOBIN 10.3 g/dl (12.0-16.0); IMMATURE GRANULOCYTE # (AUTO) 0.1 (0.0-1.0); IMMATURE GRANULOCYTE % (AUTO) 0.7 % (0.0-5.0); LYMPHOCYTES # (AUTO) 2.8 K/uL (0.60-3.4); LYMPHOCYTES % (AUTO) 31.4 (10.0-50.0); MEAN CORPUSCULAR HEMOGLOBIN 30.7 pg (27.0-31.0); MEAN CORPUSCULAR HGB CONC 32.4 (31.8-35.4); MEAN CORPUSCULAR VOLUME 94.6 fl (81.0-99.0); MONOCYTES # (AUTO) 0.4 K/uL (0.4-2.0); MONOCYTES % (AUTO) 4.7 (0-10); NEUTROPHILS # (AUTO) 5.5 K/ul (2.0-6.9); NEUTROPHILS % (AUTO) 62.2 % (42.2-75.2); PLATELET COUNT 131 10^3/uL (140-440); RED BLOOD COUNT 3.36 10^6/ul (4.20-5.40); WHITE BLOOD COUNT 8.89 K/ul (4.6-10.2)
[2023-06-04 06:13] LABS: ALANINE AMINOTRANSFERASE 24.6 U/L (0-35); ALBUMIN 3.29 g/dL (3.5-5.0); ALKALINE PHOSPHATASE 62.6 U/L (53-141); ASPARTATE AMINO TRANSFERASE 22.9 U/L (14-36); BILIRUBIN,TOTAL 0.96 mg/dL (0.2-1.3); CALCIUM 8.62 mg/dL (8.4-10.2); CARBON DIOXIDE 25.7 mmol/L (22-30.0); CHLORIDE 104.8 mmol/L (98-107); CREATININE 1.87 mg/dL (0.60-1.30); GLUCOSE 104.6 mg/dL (74-106); POTASSIUM 3.17 mmol/L (3.5-5.1); SODIUM 134.2 mmol/L (134.5-145); TOTAL PROTEIN 6.22 g/dL (6.3-8.2)
[2023-06-04] MEDS ORDERED: K-DUR PO ONE (08:20)
[2023-06-04] MEDS ORDERED: XANAX PO PRN (08:21)
[2023-06-04] MEDS ORDERED: VENTOLIN HFA IH PRN (08:21)
[2023-06-04] MEDS ORDERED: NON-FORMULARY MEDICATION (Cetirizine [Allergy Relief (Cetirizine)] 10 mg tablet) PO SCH (09:00)
[2023-06-04] MEDS: ATARAX PO SCH (09:17)
[2023-06-04] MEDS: PRILOSEC PO SCH (09:18)
[2023-06-04] MEDS: FLEXERIL PO SCH ×3 (09:18→20:22)
[2023-06-04] MEDS: REQUIP PO SCH ×2 (09:19→20:20)
[2023-06-04] MEDS: CLARITIN PO SCH (09:28)
[2023-06-04] MEDS: PERCOCET 10-325 PO PRN ×3 (09:28→23:39)
[2023-06-04] MEDS: PEPCID PO SCH ×2 (09:29→17:04)
[2023-06-04] MEDS ORDERED: ADDERALL PO SCH (09:30)
[2023-06-04] MEDS: DEXTROAMPHETAMINE AMPHETAMINE 30 MG PO SCH ×2 (09:48→20:28)
--- NOTE | 2023-06-04 10:36 | US ---
EXAM: ULTRASOUND VENOUS DOPPLER RIGHT LOWER EXTERMITY HISTORY: Swelling, pain COMPARISON: None TECHNIQUE: Venous duplex ultrasound of the right lower extremity was performed. Greyscale, color do ppler, spectral doppler imaging performed. FINDINGS: There is normal color flow and compression of the right common femoral, greater saphenous, profunda femoral, femoral, popliteal, peroneal, posterior tibial, and anterior tibial veins without evidence of intraluminal thrombus. Right lower extremity subcutaneous edema. IMPRESSION: No evidence for right lower extremity deep venous thrombosis.
--- NOTE | 2023-06-04 12:28 | PCM ---
Date of Service Date Seen by Provider: 06/04/23 Time Seen by Provider: 09:15 Admit Day/Time Admission Date: 06/03/23 Admission Time: 22:46 Reason for Admission Chief Complaint: [facility] Hospital Provider Hospital Provider: CORDELIA ALVARADO PA-C, [facility] [place] [facility] Physician Primary Care Physician: NICOLA NYE History of Present Illness History of Present Illness: Patient is a 62 year old female with pmhx of lymphedema, anxiety, bipolar I, COPD, recurrent cellulitis, hypertension, hyperlipidemia, who presented to the ER with worsening lower ext swelling, right lower ext redness. Patient states Saturday she noticed worsening swelling. Spoke to her PCP who instructed her to double up her bumex for the weekend. She states Saturday she woke up with redness of the right lower ext. This is a recurrent problem for the patient, requiring hospitalization in the past year. In ER patient had CT images of right lower extremity without abscess. Labs unremarkable except for a notable increase in her BUN and CR, likely from increasing her bumex dose over the weekend. Patient was given fluids, keflex, and lovenox. On my evaluation this morning patient states her legs feel really swollen and the redness of the RLE is about the same. Case Discussed With Case Discussed With: Patient's case was discussed with the ER Physicians, Dr. Baer. 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 Q85.89 - Other phakomatoses, not elsewhere classified (ICD-10) COPD (chronic obstructive pulmonary disease) J44.9 - Chronic obstructive pulmonary disease, unspecified (ICD-10) Hypertension I10 - Essential (primary) hypertension (ICD-10) Normal menstrual period Back pain M54.9 - Dorsalgia, unspecified (ICD-10) Convulsions medical marijuanas in a cream she rubs on her body. Hasn't had a seizure in 4 years due to the marijuana. R56.9 - Unspecified convulsions (ICD-10) Leg pain M79.606 - Pain in leg, unspecified (ICD-10) Surgical History History of appendectomy Z90.49 - Acquired absence of other specified parts of digestive tract (ICD- 10) H/O knee surgery left side then right side. Right side wouldn't heal and had another knee placed on the right side. Z98.890 - Other specified postprocedural states (ICD-10) History of cholecystectomy 1994 Z90.49 - Acquired absence of other specified parts of digestive tract (ICD- 10) History of partial mastectomy of both breasts 1990 Z90.13 - Acquired absence of bilateral breasts and nipples (ICD-10) Gastric bypass status for obesity 1988 Z98.84 - Bariatric surgery status (ICD-10) Previous back surgery fusion L4 and L5 Z98.890 - Other specified postprocedural states (ICD-10) Family History Mother Hypertension FATHER Cirrhosis of liver Alcohol abuse BROTHER Depression Social History Smoking and tobacco status: Current every day smoker Tobacco type: cigarettes Smoking packs per day: 1 Smoking cigarettes per day: 20.0 Years smoked: 55 Quit status: considering quitting Alcohol intake: never Substance use type: other Details: pt makes a pain cream, has a medical marijuana card Gina/alevism: NONE Special gina needs: No Agree to transfusion: Yes Adopted: No Caregiver/support person: No Household members: none Housing: other Marital status: D Lives independently: Yes Number of children: 1 Number of grandchildren: 0 Highest education level completed: high school graduate Financial difficulty paying for basics: somewhat hard service: No Current occupational status: disabled Pets and animals: Yes (3 dogs) History of recent travel: No Current gender identity: female Water heater temperature set < 120 degrees: Yes Working smoke detector in home: Yes Fire extinguisher in home: Yes Carbon monoxide detector in home: Yes Firearms in home: No Allergies Allergies Allergy/AdvReac Type Severity Reaction Status Date / Time No Known Allergies Allergy Verified 04/19/23 13:03 Current Medications Home Medications losartan 100 mg tablet (Cozaar) 100 mg PO DAILY 06/11/13 [History Confirmed 06/04/23 Last Taken Unknown] ropinirole 5 mg tablet (Requip) 5 mg PO BID 06/11/13 [History Confirmed 06/04/23 Last Taken Unknown] montelukast 10 mg tablet 10 mg PO DAILY 04/11/17 [History Confirmed 06/04/23 Last Taken Unknown] albuterol sulfate 90 mcg/actuation aerosol inhaler 2 puff inhalation Q4-6H PRN SHORTNESS OF AIR 09/22/21 [History Confirmed 06/04/23 Last Taken Unknown] losartan 50 mg tablet 50 mg PO BEDTIME 09/22/21 [History Confirmed 06/04/23 Last Taken Unknown] alprazolam 1 mg tablet 1 mg PO TID PRN Anxiety 06/12/22 [History Confirmed 06/04/23 Last Taken Unknown] cetirizine 10 mg tablet (Allergy Relief (cetirizine)) 10 mg PO DAILY 06/12/22 [History Confirmed 06/04/23 Last Taken Unknown] cyclobenzaprine 5 mg tablet 5 mg PO TID 06/12/22 [History Confirmed 06/04/23 Last Taken Unknown] famotidine 20 mg tablet 20 mg PO BID 06/12/22 [History Confirmed 06/04/23 Last Taken Unknown] lumateperone 42 mg capsule (Caplyta) 42 mg PO BEDTIME 06/12/22 [History Confirmed 06/04/23 Last Taken Unknown] potassium chloride 20 mEq tablet,extended release(part/cryst) 20 meq PO DAILY 06/12/22 [History Confirmed 06/04/23 Last Taken Unknown] omeprazole 40 mg capsule,delayed release 40 mg PO DAILY 06/14/22 [History Confirmed 06/04/23 Last Taken 06/11/22 09:00] dextroamphetamine-amphetamine 30 mg tablet (Adderall) 30 mg PO BID ##75 07/04/22 [History Confirmed 06/04/23 Last Taken Unknown] hydroxyzine HCl 25 mg tablet 25 mg PO DAILY 07/04/22 [History Confirmed 06/04/23 Last Taken Unknown] oxycodone-acetaminophen 10 mg-325 mg tablet (Percocet) 1 tab PO Q6H PRN pain 07/04/22 [History Confirmed 06/04/23 Last Taken Unknown] Bumex 1 mg PO DAILY 11/23/22 [History Confirmed 06/04/23 Last Taken Unknown] rosuvastatin 5 mg tablet 5 mg PO BEDTIME 11/23/22 [History Confirmed 06/04/23 Last Taken Unknown] cholecalciferol (vitamin D3) 25 mcg (1,000 unit) capsule (Vitamin D3) 25 mcg PO DAILY 06/04/23 [History Confirmed 06/04/23 Last Taken Unknown] gabapentin 100 mg capsule 100 mg PO BEDTIME 06/04/23 [History Confirmed 06/04/23 Last Taken Unknown] metoprolol tartrate 25 mg tablet 25 mg PO DAILY 06/04/23 [History Confirmed 06/04/23 Last Taken Unknown] trazodone 50 mg tablet 50 mg PO BEDTIME 06/04/23 [History Confirmed 06/04/23 Last Taken Unknown] triamcinolone acetonide 0.1 % topical cream 1 applic topical BID 06/04/23 [History Confirmed 06/04/23 Last Taken Unknown] varenicline 1 mg tablet 1 mg PO DAILY 06/04/23 [History Confirmed 06/04/23 Last Taken Unknown] Home Acetaminophen (Acetaminophen 325 Mg Tablet) 650 mg PO Q4H PRN PRN Reason: Mild Pain Albuterol Sulfate (Albuterol Sulfate 8 Gm Inhaler) 2 puff IH Q4-6H PRN PRN Reason: sob Alprazolam (Alprazolam 0.5 Mg Tablet) 1 mg PO TID PRN PRN Reason: Anxiety Cyclobenzaprine HCl (Cyclobenzaprine Hcl 10 Mg Tablet) 5 mg PO TID [facility] Last Admin: 06/04/23 09:18 Dose: 5 mg Enoxaparin Sodium (Enoxaparin Sodium 40 Mg/0.4 Ml Syr) 40 mg SUBCUT DAILY [facility] Last Admin: 06/04/23 13:44 Dose: 40 mg Famotidine (Famotidine 20 Mg Tablet) 20 mg PO BIDAC2 [facility] Last Admin: 06/04/23 09:29 Dose: 20 mg Gabapentin (Gabapentin 100 Mg Capsule) 100 mg PO BEDTIME [facility] Hydroxyzine HCl (Hydroxyzine Hcl 25 Mg Tablet) 25 mg PO DAILY [facility] Last Admin: 06/04/23 09:17 Dose: 25 mg VANCOMYCIN/WATER FOR INJ (PEG) (Vancomycin 1.25 Gm/250 Ml Bag) 1.25 gm in 250 mls @ 250 mls/hr IV DAILY [facility] Stop: 06/07/23 12:59 Last Admin: 06/04/23 13:43 Dose: 250 mls/hr Loratadine (Loratadine 10 Mg Tablet) 10 mg PO DAILY [facility] Last Admin: 06/04/23 09:28 Dose: 10 mg Non-Formulary Medication (Dextroamphetamine-Amphetamine [Adderall]) 30 mg PO BID [facility] Last Admin: 06/04/23 09:48 Dose: Not Given Non-Formulary Medication (Lumateperone [Caplyta]) 42 mg PO BEDTIME MARCELINO Omeprazole (Omeprazole 20 Mg Capsule.Dr) 40 mg PO QDAC2 [facility] Last Admin: 06/04/23 09:18 Dose: 40 mg Ondansetron HCl (Ondansetron Hcl/Pf 4 Mg/2 Ml Sdv) 4 mg IVP Q6H PRN PRN Reason: Nausea / Vomiting Oxycodone/Acetaminophen (Oxycodone/Acetaminophen 10/325 Mg Tablet) 1 tab PO Q6H PRN PRN Reason: Pain Last Admin: 06/04/23 09:28 Dose: 1 tab Ropinirole HCl (Ropinirole Hcl 1 Mg Tablet) 5 mg PO BID [facility] Last Admin: 06/04/23 09:19 Dose: 5 mg Rosuvastatin Calcium (Rosuvastatin Calcium 10 Mg Tablet) 5 mg PO BEDTIME MARCELINO Sodium Chloride (0.9% Sodium Chloride 10 Ml Disp.Syrin) 1 syr IVF Q8HR [facility] Last Admin: 06/04/23 13:54 Dose: 1 syr Trazodone HCl (Trazodone Hcl 50 Mg Tablet) 50 mg PO BEDTIME MARCELINO Discontinued Medications Hydrocodone Bitart/Acetaminophen (Hydrocodone Bit/Acetaminophen 10/325 Mg Tablet) 1 tab PO ONCE ONE Stop: 06/03/23 22:47 Last Admin: 06/03/23 23:49 Dose: 1 tab Cephalexin (Cephalexin 500 Mg Capsule) 500 mg PO ONCE ONE Stop: 06/03/23 22:46 Last Admin: 06/03/23 23:44 Dose: 500 mg Enoxaparin Sodium (Enoxaparin Sodium 40 Mg/0.4 Ml Syr) 40 mg SUBCUT ONCE ONE Stop: 06/03/23 22:44 Last Admin: 06/03/23 23:44 Dose: 40 mg Sodium Chloride (Sodium Chloride) 1,000 mls @ 1,000 mls/hr IV BOLUS ONE Stop: 06/03/23 19:33 Last Infusion: 06/04/23 11:18 Dose: Infused Lactated Ringer's (Lactated Ringers) 1,000 mls @ 75 mls/hr IV .[id number] [facility] Last Admin: 06/04/23 00:41 Dose: 75 mls/hr Cefazolin Sodium/Dextrose (Ancef 1 Gm/50 Ml D5w) 2 gm in 100 mls @ 150 mls/hr IV Q8HR [facility] Stop: 06/06/23 22:59 Last Admin: 06/04/23 05:14 Dose: 150 mls/hr Potassium Chloride (Potassium Chloride 20 Meq Tab) 40 meq PO ONCE ONE Stop: 06/04/23 08:21 Last Admin: 06/04/23 09:18 Dose: 40 meq Sodium Chloride (0.9% Sodium Chloride 10 Ml Disp.Syrin) 1 syr IVF PRN PRN PRN Reason: To flush IV Opioid Naive vs. Tolerant Does Patient Take Opioids?: Yes Is Patient Opioid Naive?: No What is Opioid Naive?: *Opioid Naive implies the patient is not already taking opioids or not chronically receiving opioids on a daily basis. *PRN dosing is not "usually" associated with tolerance. *Patients are at higher risk of over-sedation and aspiration. Is Patient Opioid Tolerant?: Yes What is Opioid Tolerant?: *Opioid Tolerance implies less than the expected response to an opioid. *Acquired tolerance is defined by the patient taking 60mg of oral morphine daily (or equianalgesic dose of another opioid) for 1 week or more. *Often associated with chronic pain. *May take more than usual dose to achieve desired pain control. Review of Systems Constitutional: Reports Weakness; Denies Fever Head: Reports Normocephalic and Atraumatic Cardiovascular: Denies Chest pain Respiratory: Denies Cough or Shortness of air Gastrointestinal: Denies Nausea, Vomiting, Abdominal pain or Melena Genitourinary: Denies Dysuria or Frequency Dermatologic: Reports Rashes Neurological: Reports Weakness and Problems with walking Physical examination Most Recent Vital Signs: Most Recent Vital Signs Temperature 98.4 F 06/04/23 12:06 Temperature Source Oral 06/04/23 12:06 Temperature Source Oral 06/03/23 17:42 Pulse Rate 116 H 06/04/23 12:06 Respiratory Rate 23 H 06/04/23 12:06 Blood Pressure 86/56 L 06/04/23 12:06 Blood Pressure Mean 66 06/04/23 12:06 Blood Pressure Right Arm 90/54 06/04/23 00:13 Blood Pressure Location Right Radial Artery 06/04/23 12:06 Blood Pressure Position Sitting 06/04/23 12:06 O2 Sat by Pulse Oximetry 99 06/04/23 12:06 Oxygen Delivery Method Room Air 06/04/23 12:06 Oxygen Flow Rate 2 06/04/23 02:00 Height 5 ft 8 in 06/04/23 00:13 Weight 323 lb 4 oz 06/04/23 00:13 Telemetry Heart Rate 114 H 08/19/16 19:00 Telemetry SPO2 84 L 08/18/16 07:00 Appearance: Positive No Apparent Distress, Alert and Oriented x3 and Obese Skin: Positive Rashes (+erythematous, warm nonpurulent circumferential rash just below right knee extending to forefoot. Blanches. No desquamation of the kind. No drainage. Pitting edema noted. Chronic venous stasis changes noted. Pulses difficult to palpate due to swellng/body habitus. Pain with palpation of entire area.) HEENT: Positive Normocephalic and Atraumatic Neck: Positive Supple and Midline Trachea Chest/Lungs: Positive Clear to Auscultation Bilaterally; Negative Rales, Rhonci or Wheezes Heart: Positive RRR GI/: Positive Soft, Nontender and Bowel Sounds Normal Extremities: Positive Edema (BLE, worse on the right. ) Neurological: Positive Cranial Nerves Intact, Alert and Other (+generalized weakness. ) Psychiatric: Positive Oriented x4, Appropriate Mood and Appropriate Affect Labs This Visit Labs This Visit: Labs This Visit 06/03/23 06/03/23 06/03/23 18:10 21:22 22:45 WBC 12.06 H RBC 3.78 L Hgb 11.6 L Hct 35.5 L MCV 93.9 MCH 30.7 MCHC 32.7 RDW Coeff of Awilda 13.9 Plt Count 160 Immature Gran % (Auto) 0.4 Neut % (Auto) 70.0 Lymph % (Auto) 24.4 King % (Auto) 4.6 Eos % (Auto) 0.5 Baso % (Auto) 0.1 Neut # (Auto) 8.5 H Lymph # (Auto) 2.9 King # (Auto) 0.6 Eos # (Auto) 0.1 Baso # (Auto) 0.0 Immature Gran # (Auto) 0.1 Sodium 133.3 L 132.2 L Potassium 3.61 3.54 Chloride 100.1 104.2 Carbon Dioxide 25.6 18.4 L D Anion Gap 11.21 13.14 BUN 58.2 H 52.7 H Creatinine 2.11 H 1.86 H Estimated GFR (MDRD) 24.00 27.00 BUN/Creatinine Ratio 27.58 28.33 Glucose 105.5 92.4 Lactic Acid 1.25 Calcium 8.67 8.62 Total Bilirubin 1.49 H AST 26.6 ALT 27.5 Alkaline Phosphatase 57.7 Total Protein 7.13 Albumin 3.87 Globulin 3.26 Albumin/Globulin Ratio 1.18 SARS CoV-2 RNA Rapid KHUSHI Negative 06/04/23 05:19 WBC 8.89 RBC 3.36 L Hgb 10.3 L Hct 31.8 L MCV 94.6 MCH 30.7 MCHC 32.4 RDW Coeff of Awilda 14.0 Plt Count 131 L Immature Gran % (Auto) 0.7 Neut % (Auto) 62.2 Lymph % (Auto) 31.4 King % (Auto) 4.7 Eos % (Auto) 0.9 Baso % (Auto) 0.1 Neut # (Auto) 5.5 Lymph # (Auto) 2.8 King # (Auto) 0.4 Eos # (Auto) 0.1 Baso # (Auto) 0.0 Immature Gran # (Auto) 0.1 Sodium 134.2 L Potassium 3.17 L Chloride 104.8 Carbon Dioxide 25.7 D Anion Gap 6.87 BUN 51.0 H Creatinine 1.87 H Estimated GFR (MDRD) 27.00 BUN/Creatinine Ratio 27.27 Glucose 104.6 Lactic Acid Calcium 8.62 Total Bilirubin 0.96 AST 22.9 ALT 24.6 Alkaline Phosphatase 62.6 Total Protein 6.22 L Albumin 3.29 L Globulin 2.93 Albumin/Globulin Ratio 1.12 SARS CoV-2 RNA Rapid KHUSHI Imaging Imaging: EXAM: CT RIGHT FOOT WITHOUT CONTRAST History: Right lower extremity cellulitis Technique: 2.[address] of the right foot without contrast FINDINGS: Circumferential edema of the subcutaneous fat with skin thickening. No soft tissue gas. No organizing collection. Edema is confined to the subcutaneous planes. No acute bony abnormalities are seen. Impression: 1. No acute bony abnormalities of the foot 2. Circumferential edema and skin thickening. No organizing inflammatory mass or collection EXAM: CT RIGHT KNEE HISTORY: Cellulitis TECHNIQUE: CT right knee without contrast. Multiplanar images. FINDINGS: Diagnostic limitations exist without including intravenous contrast enhanced images. Previous total knee arthroplasty. Prosthetic units lead to artifact degrading image quality although appear seated without evidence of dislodgement or loosening. There is no visible joint effusion. The subcutaneous fat is diffusely stranded consistent with edema and / or cellulitis. No defined or organized fluid collection to indicate abscess is ramos ggested. The deep tissue planes and muscular tissues are preserved. IMPRESSION: 1. Subcutaneous fat stranding indicating edema and / or cellulitis. No abscess or soft tissue gas is seen. EXAM: CT RIGHT LOWER EXTREMITY WITHOUT CONTRAST History: Right lower extremity cellulitis Technique: 2.[address] of the right lower leg from the distal femur through the ankle. FINDINGS: Circumferential edema of the lower leg. Edema limited to the subcutaneous fat planes. No soft tissue gas organizing collection. Venous varicosities are present. No acute bony abnormalities. Knee arthroplasty in place. Impression: Marked subcutaneous edema of the lower leg. No organized inflammatory mass or collection. EXAM: ULTRASOUND VENOUS DOPPLER RIGHT LOWER EXTERMITY HISTORY: Swelling, pain COMPARISON: None TECHNIQUE: Venous duplex ultrasound of the right lower extremity was performed. Greyscale, color doppler, spectral doppler imaging performed. FINDINGS: There is normal color flow and compression of the right common femoral, greater saphenous, profunda femoral, femoral, popliteal, peroneal, posterior tibial, and anterior tibial veins without evidence of intraluminal thrombus. Right lower extremity subcutaneous edema. IMPRESSION: No evidence for right lower extremity deep venous thrombosis. Review Statement Review Statement: I have independently reviewed and interpreted the labs/EKGs/imaging that were ordered by the ER provider. I have reviewed all outside records that are available currently in our EMR including imaging/notes/labs from previous visits. Plan Plan: 1. Acute severe right lower extremity cellulitis - Change cefazolin to vancomycin for MRSA coverage. US negative for DVT. 2. RYANN, stage I in setting of diuretic use - Stop fluids. Hold bumex today. Reevaluate tomorrow. 3. Lymphedema - Hold bumex 4. Hyperlipidemia - Cont home meds 5. Hypertension - Hold losartan due to RYANN. Holding metoprolol due to borderline low BP today. 6. Bipolar - Cont home meds 7. Anxiety - Cont home meds DVT Prophylaxis: Lovenox Time Spent: Greater than 80 minutes spent with patient, 50% of the time spent with this patient was devoted to counseling and coordination of care. [facility] minutes spent discussing advance care planning. FULL CODE Admit to: Obs Discussed Plan of Care with Dr. Fredy Ballard. Medications Medication Orders: Medications Ordered Category Date Time Status 0.9 % Sodium Chloride [Saline Flush] Meds 06/04/23 13:00 Active 1 syr IVF Q8HR Acetaminophen [Tylenol] Meds 06/03/23 22:49 Active 650 mg PO Q4H PRN Albuterol Sulfate [Ventolin Hfa] Meds 06/04/23 08:21 Active 2 puff IH Q4-6H PRN Alprazolam [Xanax] Meds 06/04/23 08:21 Active 1 mg PO TID PRN Cyclobenzaprine HCl [Flexeril] Meds 06/04/23 09:00 Active 5 mg PO TID Famotidine [Pepcid] Meds 06/04/23 09:00 Active 20 mg PO BIDAC2 Gabapentin [Neurontin] Meds 06/04/23 21:00 Active 100 mg PO BEDTIME Hydroxyzine HCl [Atarax] Meds 06/04/23 09:00 Active 25 mg PO DAILY Loratadine [Claritin] Meds 06/04/23 09:00 Active 10 mg PO DAILY Omeprazole [Prilosec] Meds 06/04/23 09:00 Active 40 mg PO QDAC2 Ondansetron HCl/Pf [Zofran 4 mg/2 ml] Meds 06/03/23 22:49 Active 4 mg IVP Q6H PRN Oxycodone-Acetaminophen 10-325 [Percocet 10-325] Meds 06/04/23 02:29 Active 1 tab PO Q6H PRN Ropinirole HCl [Requip] Meds 06/04/23 09:00 Active 5 mg PO BID Rosuvastatin Calcium [Crestor] Meds 06/04/23 21:00 Active 5 mg PO BEDTIME Trazodone HCl [Desyrel] Meds 06/04/23 21:00 Active 50 mg PO BEDTIME dextroamphetamine-amphetamine [Adderall] Meds 06/04/23 09:00 Active 30 mg PO BID lumateperone [Caplyta] Meds 06/04/23 21:00 Active 42 mg PO BEDTIME
[2023-06-04] MEDS: VANCOMYCIN 1.25 GM/250 ML BAG 1.25 GM/250 ML BAG IV SCH (13:43)
[2023-06-04] MEDS: LOVENOX SUBCUT SCH (13:44)
[2023-06-04] MEDS: CRESTOR PO SCH (20:22)
[2023-06-04] MEDS: DESYREL PO SCH (20:23)
[2023-06-04] MEDS: NEURONTIN PO SCH (20:25)
[2023-06-04] MEDS: NON-FORMULARY MEDICATION (Lumateperone [Caplyta] 42 mg capsule) PO SCH (20:27)
[2023-06-05 05:29] LABS: BASOPHILS % (AUTO) 0.2 % (0.0-3.0); EOSINOPHILS # (AUTO) 0.1 K/ul (0.0-0.7); EOSINOPHILS % (AUTO) 0.9 % (0.0-7.0); HEMATOCRIT 35.2 % (37.0-47.0); HEMOGLOBIN 11.2 g/dl (12.0-16.0); IMMATURE GRANULOCYTE # (AUTO) 0.1 (0.0-1.0); LYMPHOCYTES # (AUTO) 2.4 K/uL (0.60-3.4); LYMPHOCYTES % (AUTO) 25.8 (10.0-50.0); MEAN CORPUSCULAR HEMOGLOBIN 30.4 pg (27.0-31.0); MEAN CORPUSCULAR HGB CONC 31.8 (31.8-35.4); MEAN CORPUSCULAR VOLUME 95.7 fl (81.0-99.0); MONOCYTES # (AUTO) 0.7 K/uL (0.4-2.0); MONOCYTES % (AUTO) 7.1 (0-10); NEUTROPHILS # (AUTO) 6.1 K/ul (2.0-6.9); PLATELET COUNT 173 10^3/uL (140-440); RDW COEFFICIENT OF VARIATION 13.8 % (11.6-14.8); RED BLOOD COUNT 3.68 10^6/ul (4.20-5.40); WHITE BLOOD COUNT 9.41 K/ul (4.6-10.2)
[2023-06-05] MEDS: PRILOSEC PO SCH (05:30)
[2023-06-05] MEDS: PEPCID PO SCH ×2 (05:31→16:16)
[2023-06-05] MEDS: PERCOCET 10-325 PO PRN ×3 (05:41→20:29)
[2023-06-05 05:45] LABS: ALANINE AMINOTRANSFERASE 23.3 U/L (0-35); ALBUMIN 3.63 g/dL (3.5-5.0); ALKALINE PHOSPHATASE 76.7 U/L (53-141); ASPARTATE AMINO TRANSFERASE 27.8 U/L (14-36); BILIRUBIN,TOTAL 1.59 mg/dL (0.2-1.3); BLOOD UREA NITROGEN 38.2 mg/dL (7-17); CALCIUM 9.16 mg/dL (8.4-10.2); CARBON DIOXIDE 24.5 mmol/L (22-30.0); CHLORIDE 102.2 mmol/L (98-107); CREATININE 1.43 mg/dL (0.60-1.30); GLUCOSE 136.8 mg/dL (74-106); POTASSIUM 3.94 mmol/L (3.5-5.1); SODIUM 133.8 mmol/L (134.5-145); TOTAL PROTEIN 6.95 g/dL (6.3-8.2)
[2023-06-05] MEDS: FLEXERIL PO SCH ×3 (08:44→20:29)
[2023-06-05] MEDS: CLARITIN PO SCH (08:45)
[2023-06-05] MEDS: REQUIP PO SCH ×2 (08:45→20:30)
[2023-06-05] MEDS: ATARAX PO SCH (08:45)
[2023-06-05] MEDS: VANCOMYCIN 1.25 GM/250 ML BAG 1.25 GM/250 ML BAG IV SCH (08:46)
[2023-06-05] MEDS: LOVENOX SUBCUT SCH (08:59)
[2023-06-05] MEDS: DEXTROAMPHETAMINE AMPHETAMINE 30 MG PO SCH ×2 (09:01→20:31)
--- NOTE | 2023-06-05 10:45 | PCM.PROG ---
Date/Time Seen Date Seen by Provider: 06/05/23 Time Seen by Provider: 08:30 Provider Provider[facility] Chief Complaint Chief Complaint: RYANN Subjective Subjective: Patient states her leg is less painful today. Still has significant redness and swelling. US negative for DVT. Some fluid filled blisters have formed. Otherwise no complaints today. Objective Appearance: Positive No Apparent Distress, Alert and Oriented x3 and Obese Chest/Lungs: Positive Clear to Auscultation Bilaterally; Negative Rales, Rhonci or Wheezes Heart: Positive RRR GI/: Positive Soft, Nontender, Bowel Sounds Normal and No Distention Neurological: Positive Cranial Nerves Intact, Alert, Oriented and Other (+generalized weakness ) Additional Findings: RLE - +erythematous, warm nonpurulent circumferential rash just below right knee extending to forefoot. Erythema mildly improved today, warmness improved. Blanches. No desquamation of the skin. No drainage. Pitting edema noted. Few isolated fluid filled blisters noted. Chronic venous stasis changes noted. Pulses difficult to palpate due to swellng/body habitus. No pain with palpation today. Vital Signs Vital Signs: Vital Signs: Last 24 Hours 06/04/23 11:00 06/04/23 12:00 06/04/23 12:06 Temperature 98.4 F Temperature Source Oral Pulse Rate 116 H Respiratory Rate 23 H Blood Pressure 86/56 L Blood Pressure Mean 66 Blood Pressure Location Right Radial Artery Blood Pressure Position Sitting O2 Sat by Pulse Oximetry 99 Oxygen Delivery Method Room Air Room Air Room Air Oxygen Flow Rate 06/04/23 12:52 06/04/23 13:34 06/04/23 13:59 Temperature Temperature Source Pulse Rate Respiratory Rate Blood Pressure Blood Pressure Mean Blood Pressure Location Blood Pressure Position O2 Sat by Pulse Oximetry Oxygen Delivery Method Room Air Room Air Room Air Oxygen Flow Rate 06/04/23 14:00 06/04/23 15:00 06/04/23 15:54 Temperature 97.9 F Temperature Source Oral Pulse Rate 115 H Respiratory Rate 24 H Blood Pressure 103/65 Blood Pressure Mean 77 Blood Pressure Location Right Arm Blood Pressure Position Sitting O2 Sat by Pulse Oximetry 98 Oxygen Delivery Method Room Air Room Air Room Air Oxygen Flow Rate 06/04/23 17:00 06/04/23 17:54 06/04/23 17:56 Temperature 98.4 F Temperature Source Oral Pulse Rate 123 H Respiratory Rate 20 Blood Pressure 118/60 Blood Pressure Mean 79 Blood Pressure Location Right Radial Artery Blood Pressure Position Sitting O2 Sat by Pulse Oximetry 99 Oxygen Delivery Method Room Air Room Air Room Air Oxygen Flow Rate 06/04/23 19:00 06/04/23 19:20 06/04/23 19:59 Temperature Temperature Source Pulse Rate Respiratory Rate 20 Blood Pressure Blood Pressure Mean Blood Pressure Location Blood Pressure Position O2 Sat by Pulse Oximetry Oxygen Delivery Method Room Air Room Air Room Air Oxygen Flow Rate 06/04/23 20:00 06/04/23 21:00 06/04/23 22:00 Temperature Temperature Source Pulse Rate Respiratory Rate Blood Pressure Blood Pressure Mean Blood Pressure Location Blood Pressure Position O2 Sat by Pulse Oximetry 95 Oxygen Delivery Method Room Air Room Air Room Air Oxygen Flow Rate 06/04/23 22:00 06/04/23 23:00 06/04/23 23:54 Temperature 98.3 F Temperature Source Oral Pulse Rate 59 L Respiratory Rate 18 Blood Pressure 102/64 Blood Pressure Mean 76 Blood Pressure Location Right Arm Blood Pressure Position Sitting O2 Sat by Pulse Oximetry 96 Oxygen Delivery Method Room Air Room Air Room Air Oxygen Flow Rate 06/05/23 00:54 06/05/23 01:59 06/05/23 02:00 Temperature 98.5 F Temperature Source Oral Pulse Rate 104 H Respiratory Rate 16 Blood Pressure 110/62 Blood Pressure Mean 78 Blood Pressure Location Right Radial Artery Blood Pressure Position Supine O2 Sat by Pulse Oximetry 92 L Oxygen Delivery Method Nasal Cannula Nasal Cannula Room Air Oxygen Flow Rate 06/05/23 02:53 06/05/23 03:57 06/05/23 04:52 Temperature Temperature Source Pulse Rate Respiratory Rate Blood Pressure Blood Pressure Mean Blood Pressure Location Blood Pressure Position O2 Sat by Pulse Oximetry Oxygen Delivery Method Room Air Room Air Nasal Cannula Oxygen Flow Rate 2 06/05/23 05:00 06/05/23 05:03 06/05/23 05:48 Temperature 98.3 F Temperature Source Oral Pulse Rate 98 Respiratory Rate 20 Blood Pressure 102/63 Blood Pressure Mean 76 Blood Pressure Location Right Arm Blood Pressure Position Supine O2 Sat by Pulse Oximetry 99 Oxygen Delivery Method Nasal Cannula Nasal Cannula Nasal Cannula Oxygen Flow Rate 2 06/05/23 07:00 06/05/23 08:00 06/05/23 08:00 Temperature Temperature Source Pulse Rate Respiratory Rate Blood Pressure Blood Pressure Mean Blood Pressure Location Blood Pressure Position O2 Sat by Pulse Oximetry Oxygen Delivery Method Room Air Room Air Room Air Oxygen Flow Rate 06/05/23 09:00 06/05/23 10:00 06/05/23 10:00 Temperature 98.4 F Temperature Source Oral Pulse Rate 104 H Respiratory Rate 26 H Blood Pressure 122/74 Blood Pressure Mean 90 Blood Pressure Location Right Arm Blood Pressure Position Sitting O2 Sat by Pulse Oximetry 98 Oxygen Delivery Method Room Air Room Air Room Air Oxygen Flow Rate 06/05/23 10:00 Temperature Temperature Source Pulse Rate Respiratory Rate Blood Pressure Blood Pressure Mean Blood Pressure Location Blood Pressure Position O2 Sat by Pulse Oximetry 96 Oxygen Delivery Method Room Air Oxygen Flow Rate Lab Results Lab Results: Lab Results: Last 24 Hours 06/05/23 05:16 WBC 9.41 RBC 3.68 L Hgb 11.2 L Hct 35.2 L MCV 95.7 MCH 30.4 MCHC 31.8 RDW Coeff of Awilda 13.8 Plt Count 173 D Immature Gran % (Auto) 1.0 Neut % (Auto) 65.0 Lymph % (Auto) 25.8 [place] % (Auto) 7.1 Eos % (Auto) 0.9 Baso % (Auto) 0.2 Neut # (Auto) 6.1 Lymph # (Auto) 2.4 [place] # (Auto) 0.7 Eos # (Auto) 0.1 Baso # (Auto) 0.0 Immature Gran # (Auto) 0.1 Sodium 133.8 L Potassium 3.94 Chloride 102.2 Carbon Dioxide 24.5 Anion Gap 11.04 BUN 38.2 H Creatinine 1.43 H Estimated GFR (MDRD) 37.00 BUN/Creatinine Ratio 26.71 Glucose 136.8 H Calcium 9.16 Total Bilirubin 1.59 H AST 27.8 ALT 23.3 Alkaline Phosphatase 76.7 Total Protein 6.95 Albumin 3.63 Globulin 3.32 Albumin/Globulin Ratio 1.09 Additional Comments Additional Comments: I have independently reviewed and interpreted the labs/EKGs/imaging ordered during this hospital stay. I have reviewed outside records that are available in our EMR that pertain to medical stay including imaging/notes/labs from previous visits. Active Medications Active Medications: Medications Generic Name Dose Route Start Last Admin Trade Name Freq PRN Reason Stop Dose Admin Acetaminophen 650 mg 06/03/23 22:49 Acetaminophen 325 Mg Tablet PO Q4H PRN Mild Pain Albuterol Sulfate 2 puff 06/04/23 08:21 Albuterol Sulfate 8 Gm Inhaler IH Q4-6H PRN sob Alprazolam 1 mg 06/04/23 08:21 Alprazolam 0.5 Mg Tablet PO TID PRN Anxiety Cyclobenzaprine HCl 5 mg 06/04/23 09:00 06/05/23 08:44 Cyclobenzaprine Hcl 10 Mg Tablet PO 5 mg TID MARCELINO Administration Enoxaparin Sodium 40 mg 06/04/23 13:00 06/05/23 08:59 Enoxaparin Sodium 40 Mg/0.4 Ml Syr SUBCUT 40 mg DAILY MARCELINO Administration Famotidine 20 mg 06/04/23 09:00 06/05/23 05:31 Famotidine 20 Mg Tablet PO 20 mg BIDAC2 MARCELINO Administration Gabapentin 100 mg 06/04/23 21:00 06/04/23 20:25 Gabapentin 100 Mg Capsule PO Not Given BEDTIME MARCELINO Hydroxyzine HCl 25 mg 06/04/23 09:00 06/05/23 08:45 Hydroxyzine Hcl 25 Mg Tablet PO 25 mg DAILY MARCELINO Administration VANCOMYCIN/WATER FOR INJ (PEG) 1.25 gm in 250 mls @ 250 mls/hr 06/04/23 13:00 06/05/23 08:46 Vancomycin 1.25 Gm/250 Ml Bag IV 06/07/23 12:59 250 mls/hr DAILY MARCELINO Administration CEFEPIME 2 GM/D5W 2 gm in 50 mls @ 100 mls/hr 06/05/23 13:00 Maxipime 2 Gm/50 Ml D5w IV 06/08/23 12:59 Q8HR MARCELINO Loratadine 10 mg 06/04/23 09:00 06/05/23 08:45 Loratadine 10 Mg Tablet PO 10 mg DAILY MARCELINO Administration Non-Formulary Medication 30 mg 06/04/23 09:00 06/05/23 09:01 Dextroamphetamine-Amphetamine [Adderall] PO Not Given BID MARCELINO Non-Formulary Medication 42 mg 06/04/23 21:00 06/04/23 20:27 Lumateperone [Caplyta] PO Not Given BEDTIME MARCELINO Omeprazole 40 mg 06/04/23 09:00 06/05/23 05:30 Omeprazole 20 Mg Capsule.Dr PO 40 mg QDAC2 MARCELINO Administration Ondansetron HCl 4 mg 06/03/23 22:49 Ondansetron Hcl/Pf 4 Mg/2 Ml Sdv IVP Q6H PRN Nausea / Vomiting Oxycodone/Acetaminophen 1 tab 06/04/23 02:29 06/05/23 05:41 Oxycodone/Acetaminophen 10/325 Mg Tablet PO 1 tab Q6H PRN Administration Pain Ropinirole HCl 5 mg 06/04/23 09:00 06/05/23 08:45 Ropinirole Hcl 1 Mg Tablet PO 5 mg BID MARCELINO Administration Rosuvastatin Calcium 5 mg 06/04/23 21:00 06/04/23 20:22 Rosuvastatin Calcium 10 Mg Tablet PO 5 mg BEDTIME MARCELINO Administration Sodium Chloride 1 syr 06/04/23 13:00 06/05/23 05:45 0.9% Sodium Chloride 10 Ml Disp.Syrin IVF 1 syr Q8HR MARCELINO Administration Trazodone HCl 50 mg 06/04/23 21:00 06/04/23 20:23 Trazodone Hcl 50 Mg Tablet PO 50 mg BEDTIME MARCELINO Administration Plan Plan: 1. Acute severe right lower extremity cellulitis - Continue vancomycin for MRSA coverage, mrsa swab ordered. Adding cefepime today for pseudomonal coverage. Check A1c. US negative for DVT. 2. RYANN, stage I in setting of diuretic use - Improved. Reevaluate tomorrow. Will give lasix x1 today to help with swelling. 3. Lymphedema - Hold bumex 4. Hyperlipidemia - Cont home meds 5. Hypertension - Hold losartan due to RYANN. Restart metoprolol today. 6. Bipolar - Cont home meds 7. Anxiety - Cont home meds DVT Prophylaxis: Lovenox Dispo: Patient still has significant erythema of RLE and will require another 1- 2 midnights of IV antibiotics. Review Statement Review Statement: I have personally discussed and reviewed the patient's visit/currently labs/imaging/decision making with Dr. Ballard, my supervising attending. Greater that 50 minutes spent with patient, 50% of the time spent with this patient was devoted to counseling and coordination of care.
[2023-06-05] MEDS ORDERED: LASIX IVP ONE (10:46)
[2023-06-05] MEDS: LOPRESSOR PO SCH (11:19)
[2023-06-05] MEDS: FLORASTOR PO SCH ×2 (11:19→20:29)
[2023-06-05] MEDS: MAXIPIME 2 GM/50 ML D5W 2 GM/50 ML BAG IV SCH ×2 (12:40→20:31)
[2023-06-05] MEDS: DESYREL PO SCH (20:30)
[2023-06-05] MEDS: CRESTOR PO SCH (20:30)
[2023-06-05] MEDS: NEURONTIN PO SCH (20:30)
[2023-06-05] MEDS: NON-FORMULARY MEDICATION (Lumateperone [Caplyta] 42 mg capsule) PO SCH (20:31)
[2023-06-06] MEDS: MAXIPIME 2 GM/50 ML D5W 2 GM/50 ML BAG IV SCH ×3 (05:42→20:44)
[2023-06-06] MEDS: PERCOCET 10-325 PO PRN ×3 (05:42→23:22)
[2023-06-06] MEDS: PRILOSEC PO SCH (05:42)
[2023-06-06] MEDS: PEPCID PO SCH ×2 (05:42→16:54)
[2023-06-06 06:20] LABS: BASOPHILS % (AUTO) 0.1 % (0.0-3.0); EOSINOPHILS % (AUTO) 0.3 % (0.0-7.0); HEMATOCRIT 32.3 % (37.0-47.0); HEMOGLOBIN 10.6 g/dl (12.0-16.0); IMMATURE GRANULOCYTE # (AUTO) 0.1 (0.0-1.0); IMMATURE GRANULOCYTE % (AUTO) 0.5 % (0.0-5.0); LYMPHOCYTES # (AUTO) 1.8 K/uL (0.60-3.4); LYMPHOCYTES % (AUTO) 19.5 (10.0-50.0); MEAN CORPUSCULAR HEMOGLOBIN 30.9 pg (27.0-31.0); MEAN CORPUSCULAR HGB CONC 32.8 (31.8-35.4); MEAN CORPUSCULAR VOLUME 94.2 fl (81.0-99.0); MONOCYTES # (AUTO) 0.6 K/uL (0.4-2.0); NEUTROPHILS # (AUTO) 6.8 K/ul (2.0-6.9); NEUTROPHILS % (AUTO) 73.6 % (42.2-75.2); PLATELET COUNT 161 10^3/uL (140-440); RDW COEFFICIENT OF VARIATION 13.7 % (11.6-14.8); RED BLOOD COUNT 3.43 10^6/ul (4.20-5.40)
[2023-06-06 07:05] LABS: ALANINE AMINOTRANSFERASE 22.2 U/L (0-35); ALBUMIN 3.57 g/dL (3.5-5.0); ALKALINE PHOSPHATASE 69.6 U/L (53-141); ASPARTATE AMINO TRANSFERASE 24.3 U/L (14-36); BILIRUBIN,TOTAL 1.43 mg/dL (0.2-1.3); BLOOD UREA NITROGEN 31.4 mg/dL (7-17); CALCIUM 8.96 mg/dL (8.4-10.2); CARBON DIOXIDE 22.1 mmol/L (22-30.0); CHLORIDE 102.6 mmol/L (98-107); CREATININE 1.13 mg/dL (0.60-1.30); GLUCOSE 151.2 mg/dL (74-106); POTASSIUM 3.57 mmol/L (3.5-5.1); SODIUM 130.8 mmol/L (134.5-145); TOTAL PROTEIN 6.93 g/dL (6.3-8.2)
[2023-06-06] MEDS ORDERED: K-DUR PO ONE (08:20)
[2023-06-06] MEDS: LASIX IVP SCH ×3 (08:32→20:51)
[2023-06-06] MEDS: LOPRESSOR PO SCH (08:41)
[2023-06-06] MEDS: CLARITIN PO SCH (08:41)
[2023-06-06] MEDS: FLORASTOR PO SCH ×2 (08:42→20:51)
[2023-06-06] MEDS: LOVENOX SUBCUT SCH (08:43)
[2023-06-06] MEDS: ATARAX PO SCH (08:47)
[2023-06-06] MEDS: DEXTROAMPHETAMINE AMPHETAMINE 30 MG PO SCH ×2 (08:47→21:01)
[2023-06-06] MEDS: FLEXERIL PO SCH ×3 (08:47→20:53)
[2023-06-06] MEDS: REQUIP PO SCH ×2 (08:48→20:54)
--- NOTE | 2023-06-06 09:31 | PCM.PROG ---
Date/Time Seen Date Seen by Provider: 06/06/23 Time Seen by Provider: 08:50 Provider Provider: CORDELIA ALVARADO [facility]-C[facility] Chief Complaint Chief Complaint: RYANN Subjective Subjective: Still having significant redness of right lower ext. No significant improvement noted overnight. Pt denies other complaints. Objective Appearance: Positive No Apparent Distress, Alert and Oriented x3 and Obese Chest/Lungs: Positive Clear to Auscultation Bilaterally; Negative Rales, Rhonci or Wheezes Heart: Positive RRR GI/: Positive Soft, Nontender, Bowel Sounds Normal and No Distention Neurological: Positive Cranial Nerves Intact, Alert, Oriented and Other (+generalized weakness ) Additional Findings: RLE - +erythematous, warm nonpurulent circumferential rash just below right knee extending to forefoot. Similar to yesterday, no significant changes. Blanches. No desquamation of the skin. No drainage. Pitting edema noted. Few isolated fluid filled blisters noted. Chronic venous stasis changes noted. Pulses difficult to palpate due to swelling/body habitus. No pain with palpation today. Vital Signs Vital Signs: Vital Signs: Last 24 Hours 06/05/23 10:00 06/05/23 10:00 06/05/23 10:00 Temperature 98.4 F Temperature Source Oral Pulse Rate 104 H Respiratory Rate 26 H Blood Pressure 122/74 Blood Pressure Mean 90 Blood Pressure Location Right Arm Blood Pressure Position Sitting O2 Sat by Pulse Oximetry 98 96 Oxygen Delivery Method Room Air Room Air Room Air 06/05/23 10:50 06/05/23 12:00 06/05/23 12:56 Temperature Temperature Source Pulse Rate Respiratory Rate Blood Pressure Blood Pressure Mean Blood Pressure Location Blood Pressure Position O2 Sat by Pulse Oximetry Oxygen Delivery Method Room Air Room Air Room Air 06/05/23 14:00 06/05/23 14:00 06/05/23 14:00 Temperature 97.6 F Temperature Source Oral Pulse Rate 86 Respiratory Rate 26 H Blood Pressure 128/86 Blood Pressure Mean 100 Blood Pressure Location Right Radial Artery Blood Pressure Position Sitting O2 Sat by Pulse Oximetry 96 Oxygen Delivery Method Room Air Room Air Room Air 06/05/23 14:44 06/05/23 15:57 06/05/23 17:00 Temperature Temperature Source Pulse Rate Respiratory Rate Blood Pressure Blood Pressure Mean Blood Pressure Location Blood Pressure Position O2 Sat by Pulse Oximetry Oxygen Delivery Method Room Air Room Air Room Air 06/05/23 17:56 06/05/23 17:58 06/05/23 19:00 Temperature 98.3 F Temperature Source Oral Pulse Rate 94 Respiratory Rate 18 Blood Pressure 114/76 Blood Pressure Mean 88 Blood Pressure Location Right Arm Blood Pressure Position Sitting O2 Sat by Pulse Oximetry 100 Oxygen Delivery Method Room Air Room Air Room Air 06/05/23 19:03 06/05/23 19:45 06/05/23 19:46 Temperature Temperature Source Pulse Rate Respiratory Rate 20 Blood Pressure Blood Pressure Mean Blood Pressure Location Blood Pressure Position O2 Sat by Pulse Oximetry Oxygen Delivery Method Nasal Cannula Room Air Room Air 06/05/23 20:40 06/05/23 21:00 06/05/23 22:00 Temperature 98.3 F Temperature Source Oral Pulse Rate 99 Respiratory Rate 20 Blood Pressure 111/66 Blood Pressure Mean 81 Blood Pressure Location Right Arm Blood Pressure Position Sitting O2 Sat by Pulse Oximetry 99 Oxygen Delivery Method Room Air Room Air Room Air 06/05/23 23:00 06/06/23 00:00 06/06/23 00:55 Temperature Temperature Source Pulse Rate Respiratory Rate Blood Pressure Blood Pressure Mean Blood Pressure Location Blood Pressure Position O2 Sat by Pulse Oximetry Oxygen Delivery Method Room Air Nasal Cannula Nasal Cannula 06/06/23 02:00 06/06/23 03:00 06/06/23 04:00 Temperature Temperature Source Pulse Rate Respiratory Rate Blood Pressure Blood Pressure Mean Blood Pressure Location Blood Pressure Position O2 Sat by Pulse Oximetry Oxygen Delivery Method Nasal Cannula Nasal Cannula Nasal Cannula 06/06/23 04:56 06/06/23 04:56 06/06/23 06:00 Temperature 98.6 F Temperature Source Oral Pulse Rate 101 H Respiratory Rate 21 H Blood Pressure 114/67 Blood Pressure Mean 82 Blood Pressure Location Left Arm Blood Pressure Position Supine O2 Sat by Pulse Oximetry 99 Oxygen Delivery Method Nasal Cannula Room Air Room Air 06/06/23 06:00 06/06/23 07:00 06/06/23 07:51 Temperature Temperature Source Pulse Rate Respiratory Rate Blood Pressure Blood Pressure Mean Blood Pressure Location Blood Pressure Position O2 Sat by Pulse Oximetry Oxygen Delivery Method Room Air Room Air Room Air 06/06/23 08:00 06/06/23 09:00 Temperature Temperature Source Pulse Rate Respiratory Rate Blood Pressure Blood Pressure Mean Blood Pressure Location Blood Pressure Position O2 Sat by Pulse Oximetry Oxygen Delivery Method Room Air Room Air Lab Results Lab Results: Lab Results: Last 24 Hours 06/06/23 06/05/23 06:13 05:16 WBC 9.20 RBC 3.43 L Hgb 10.6 L Hct 32.3 L MCV 94.2 MCH 30.9 MCHC 32.8 RDW Coeff of Awilda 13.7 Plt Count 161 Immature Gran % (Auto) 0.5 Neut % (Auto) 73.6 Lymph % (Auto) 19.5 [place] % (Auto) 6.0 Eos % (Auto) 0.3 Baso % (Auto) 0.1 Neut # (Auto) 6.8 Lymph # (Auto) 1.8 [place] # (Auto) 0.6 Eos # (Auto) 0.0 Baso # (Auto) 0.0 Immature Gran # (Auto) 0.1 Sodium 130.8 L Potassium 3.57 Chloride 102.6 Carbon Dioxide 22.1 Anion Gap 9.67 BUN 31.4 H Creatinine 1.13 Estimated GFR (MDRD) 49.00 BUN/Creatinine Ratio 27.78 Glucose 151.2 H Hemoglobin A1c 5.83 Calcium 8.96 Total Bilirubin 1.43 H AST 24.3 ALT 22.2 Alkaline Phosphatase 69.6 Total Protein 6.93 Albumin 3.57 Globulin 3.36 Albumin/Globulin Ratio 1.06 Additional Comments Additional Comments: I have independently reviewed and interpreted the labs/EKGs/imaging ordered during this hospital stay. I have reviewed outside records that are available in our EMR that pertain to medical stay including imaging/notes/labs from previous visits. Active Medications Active Medications: Medications Generic Name Dose Route Start Last Admin Trade Name Freq PRN Reason Stop Dose Admin Acetaminophen 650 mg 06/03/23 22:49 Acetaminophen 325 Mg Tablet PO Q4H PRN Mild Pain Albuterol Sulfate 2 puff 06/04/23 08:21 Albuterol Sulfate 8 Gm Inhaler IH Q4-6H PRN sob Alprazolam 1 mg 06/04/23 08:21 Alprazolam 0.5 Mg Tablet PO TID PRN Anxiety Cyclobenzaprine HCl 5 mg 06/04/23 09:00 06/06/23 08:47 Cyclobenzaprine Hcl 10 Mg Tablet PO Not Given TID MARCELINO Enoxaparin Sodium 40 mg 06/04/23 13:00 06/06/23 08:43 Enoxaparin Sodium 40 Mg/0.4 Ml Syr SUBCUT 40 mg DAILY MARCELINO Administration Famotidine 20 mg 06/04/23 09:00 06/06/23 05:42 Famotidine 20 Mg Tablet PO 20 mg BIDAC2 MARCELINO Administration Furosemide 40 mg 06/06/23 08:20 06/06/23 08:32 Furosemide Inj 40 Mg/4 Ml Vial IVP 40 mg Q8HR MARCELINO Administration Gabapentin 100 mg 06/04/23 21:00 06/05/23 20:30 Gabapentin 100 Mg Capsule PO 100 mg BEDTIME MARCELINO Administration Hydroxyzine HCl 25 mg 06/04/23 09:00 06/06/23 08:47 Hydroxyzine Hcl 25 Mg Tablet PO Not Given DAILY MARCELINO VANCOMYCIN/WATER FOR INJ (PEG) 1.25 gm in 250 mls @ 250 mls/hr 06/04/23 13:00 06/05/23 08:46 Vancomycin 1.25 Gm/250 Ml Bag IV 06/07/23 12:59 250 mls/hr DAILY MARCELINO Administration CEFEPIME 2 GM/D5W 2 gm in 50 mls @ 100 mls/hr 06/05/23 13:00 06/06/23 05:42 Maxipime 2 Gm/50 Ml D5w IV 06/08/23 12:59 100 mls/hr Q8HR MARCELINO Administration Loratadine 10 mg 06/04/23 09:00 06/06/23 08:41 Loratadine 10 Mg Tablet PO 10 mg DAILY MARCELINO Administration Metoprolol Tartrate 25 mg 06/05/23 11:00 06/06/23 08:41 Metoprolol Tartrate 25 Mg Tablet PO 25 mg DAILY MARCELINO Administration Non-Formulary Medication 30 mg 06/04/23 09:00 06/06/23 08:47 Dextroamphetamine-Amphetamine [Adderall] PO Not Given BID MARCELINO Non-Formulary Medication 42 mg 06/04/23 21:00 06/05/23 20:31 Lumateperone [Caplyta] PO Not Given BEDTIME MARCELINO Omeprazole 40 mg 06/04/23 09:00 06/06/23 05:42 Omeprazole 20 Mg Capsule.Dr PO 40 mg QDAC2 MARCELINO Administration Ondansetron HCl 4 mg 06/03/23 22:49 Ondansetron Hcl/Pf 4 Mg/2 Ml Sdv IVP Q6H PRN Nausea / Vomiting Oxycodone/Acetaminophen 1 tab 06/04/23 02:29 06/06/23 05:42 Oxycodone/Acetaminophen 10/325 Mg Tablet PO 1 tab Q6H PRN Administration Pain Ropinirole HCl 5 mg 06/04/23 09:00 06/06/23 08:48 Ropinirole Hcl 1 Mg Tablet PO Not Given BID MARCELINO Rosuvastatin Calcium 5 mg 06/04/23 21:00 06/05/23 20:30 Rosuvastatin Calcium 10 Mg Tablet PO 5 mg BEDTIME MARCELINO Administration Saccharomyces Boulardii 250 mg 06/05/23 10:50 06/06/23 08:42 Saccharomyces Boulardii 250 Mg Capsule PO 250 mg BID MARCELINO Administration Sodium Chloride 1 syr 06/04/23 13:00 06/06/23 05:43 0.9% Sodium Chloride 10 Ml Disp.Syrin IVF 1 syr Q8HR MARCELINO Administration Trazodone HCl 50 mg 06/04/23 21:00 06/05/23 20:30 Trazodone Hcl 50 Mg Tablet PO 50 mg BEDTIME MARCELINO Administration Plan Plan: 1. Acute severe right lower extremity cellulitis - Continue vancomycin for MRSA coverage, mrsa swab ordered. Continue cefepime pseudomonal coverage. A1c normal. US negative for DVT. Lasix 40 ivp q8hrs added today since renal function has r ecovered. 2. RYANN, stage I in setting of diuretic use - resolved. 3. Lymphedema - Hold bumex. Lasix 40 q8hrs. 4. Hyperlipidemia - Cont home meds 5. Hypertension - Hold losartan due to RYANN. Cont metoprolol. 6. Bipolar - Cont home meds 7. Anxiety - Cont home meds DVT Prophylaxis: Lovenox Dispo: Patient still has significant erythema of RLE and will require another 1- 2 midnights of IV antibiotics. Review Statement Review Statement: I have personally discussed and reviewed the patient's visit/currently labs/imaging/decision making with Dr. Ballard, my supervising attending. Greater that 50 minutes spent with patient, 50% of the time spent with this patient was devoted to counseling and coordination of care.
[2023-06-06] MEDS: VANCOMYCIN 1.25 GM/250 ML BAG 1.25 GM/250 ML BAG IV SCH (09:45)
[2023-06-06] MEDS: NYSTOP POWDER TP SCH ×4 (10:27→22:13)
[2023-06-06] MEDS: NEURONTIN PO SCH ×2 (20:51→21:02)
[2023-06-06] MEDS: CRESTOR PO SCH (20:52)
[2023-06-06] MEDS: DESYREL PO SCH (20:55)
[2023-06-06] MEDS: NON-FORMULARY MEDICATION (Lumateperone [Caplyta] 42 mg capsule) PO SCH (20:57)
[2023-06-07] MEDS: PEPCID PO SCH ×2 (05:23→16:49)
[2023-06-07] MEDS: MAXIPIME 2 GM/50 ML D5W 2 GM/50 ML BAG IV SCH ×3 (05:23→20:39)
[2023-06-07] MEDS: PRILOSEC PO SCH (05:23)
[2023-06-07] MEDS: LASIX IVP SCH ×3 (05:24→20:59)
[2023-06-07] MEDS: PERCOCET 10-325 PO PRN ×2 (05:34→13:26)
[2023-06-07 06:49] LABS: ALANINE AMINOTRANSFERASE 19.4 U/L (0-35); ALBUMIN 3.5 g/dL (3.5-5.0); ALKALINE PHOSPHATASE 72.4 U/L (53-141); ASPARTATE AMINO TRANSFERASE 21.9 U/L (14-36); BILIRUBIN,TOTAL 1.06 mg/dL (0.2-1.3); BLOOD UREA NITROGEN 32.6 mg/dL (7-17); CALCIUM 8.84 mg/dL (8.4-10.2); CARBON DIOXIDE 24.3 mmol/L (22-30.0); CHLORIDE 101.2 mmol/L (98-107); CREATININE 1.23 mg/dL (0.60-1.30); GLUCOSE 116.7 mg/dL (74-106); POTASSIUM 3.68 mmol/L (3.5-5.1); SODIUM 132.6 mmol/L (134.5-145); TOTAL PROTEIN 6.87 g/dL (6.3-8.2)
[2023-06-07 06:57] LABS: BASOPHILS % (AUTO) 0.3 % (0.0-3.0); EOSINOPHILS # (AUTO) 0.1 K/ul (0.0-0.7); EOSINOPHILS % (AUTO) 1.1 % (0.0-7.0); HEMATOCRIT 32.2 % (37.0-47.0); HEMOGLOBIN 10.8 g/dl (12.0-16.0); IMMATURE GRANULOCYTE # (AUTO) 0.1 (0.0-1.0); IMMATURE GRANULOCYTE % (AUTO) 1.1 % (0.0-5.0); LYMPHOCYTES # (AUTO) 2.3 K/uL (0.60-3.4); LYMPHOCYTES % (AUTO) 29.5 (10.0-50.0); MEAN CORPUSCULAR HEMOGLOBIN 31.5 pg (27.0-31.0); MEAN CORPUSCULAR HGB CONC 33.5 (31.8-35.4); MEAN CORPUSCULAR VOLUME 93.9 fl (81.0-99.0); MONOCYTES # (AUTO) 0.6 K/uL (0.4-2.0); MONOCYTES % (AUTO) 7.8 (0-10); NEUTROPHILS # (AUTO) 4.7 K/ul (2.0-6.9); NEUTROPHILS % (AUTO) 60.2 % (42.2-75.2); PLATELET COUNT 178 10^3/uL (140-440); RDW COEFFICIENT OF VARIATION 13.5 % (11.6-14.8); RED BLOOD COUNT 3.43 10^6/ul (4.20-5.40); WHITE BLOOD COUNT 7.87 K/ul (4.6-10.2)
[2023-06-07] MEDS: LOVENOX SUBCUT SCH (08:52)
[2023-06-07] MEDS: FLEXERIL PO SCH ×3 (08:54→20:38)
[2023-06-07] MEDS: VANCOMYCIN 1.25 GM/250 ML BAG 1.25 GM/250 ML BAG IV SCH (08:54)
[2023-06-07] MEDS: REQUIP PO SCH ×2 (08:55→20:38)
[2023-06-07] MEDS: FLORASTOR PO SCH ×2 (08:55→20:38)
[2023-06-07] MEDS: CLARITIN PO SCH (08:55)
[2023-06-07] MEDS: LOPRESSOR PO SCH (08:56)
[2023-06-07] MEDS: ATARAX PO SCH (08:56)
[2023-06-07] MEDS: NYSTOP POWDER TP SCH ×3 (09:18→20:39)
[2023-06-07] MEDS: DEXTROAMPHETAMINE AMPHETAMINE 30 MG PO SCH ×2 (09:40→20:39)
--- NOTE | 2023-06-07 10:44 | PCM.PROG ---
Date/Time Seen Date Seen by Provider: 06/07/23 Time Seen by Provider: 08:30 Provider Provider: CORDELIA ALVARADO PA-C, [facility] Chief Complaint Chief Complaint: RYANN Subjective Subjective: Patient thinks her leg may be a bit better. No significant improvement. MRSA negative. A1c normal. No events overnight. Objective Appearance: Positive No Apparent Distress, Alert and Oriented x3 and Obese Chest/Lungs: Positive Clear to Auscultation Bilaterally; Negative Rales, Rhonci or Wheezes Heart: Positive RRR GI/: Positive Soft, Nontender, Bowel Sounds Normal and No Distention Neurological: Positive Cranial Nerves Intact, Alert, Oriented and Other (+generalized weakness ) Additional Findings: RLE - +erythematous, warm nonpurulent circumferential rash just below right knee extending to forefoot. Similar to yesterday, no significant changes. Blanches. No desquamation of the skin. No drainage. Pitting edema noted. Few isolated fluid filled blisters noted. Chronic venous stasis changes noted. Pulses difficult to palpate due to swelling/body habitus. No pain with palpation today. Vital Signs Vital Signs: Vital Signs: Last 24 Hours 06/06/23 11:00 06/06/23 11:00 06/06/23 12:00 Temperature Temperature Source Pulse Rate Respiratory Rate Blood Pressure Blood Pressure Mean Blood Pressure Location Blood Pressure Position O2 Sat by Pulse Oximetry Oxygen Delivery Method Room Air Room Air Room Air Oxygen Flow Rate Weight 06/06/23 12:54 06/06/23 13:48 06/06/23 14:00 Temperature 97.5 F L Temperature Source Oral Pulse Rate 93 Respiratory Rate 26 H Blood Pressure 130/73 Blood Pressure Mean 92 Blood Pressure Location Left Radial Artery Blood Pressure Position Sitting O2 Sat by Pulse Oximetry 100 Oxygen Delivery Method Room Air Room Air Room Air Oxygen Flow Rate Weight 06/06/23 14:00 06/06/23 15:00 06/06/23 16:00 Temperature Temperature Source Pulse Rate Respiratory Rate Blood Pressure Blood Pressure Mean Blood Pressure Location Blood Pressure Position O2 Sat by Pulse Oximetry Oxygen Delivery Method Room Air Room Air Room Air Oxygen Flow Rate Weight 06/06/23 16:58 06/06/23 17:58 06/06/23 18:00 Temperature 97.9 F Temperature Source Oral Pulse Rate 99 Respiratory Rate 26 H Blood Pressure 130/73 Blood Pressure Mean 92 Blood Pressure Location Left Arm Blood Pressure Position Sitting O2 Sat by Pulse Oximetry 100 Oxygen Delivery Method Room Air Room Air Room Air Oxygen Flow Rate Weight 06/06/23 19:00 06/06/23 19:48 06/06/23 20:00 Temperature Temperature Source Pulse Rate Respiratory Rate Blood Pressure Blood Pressure Mean Blood Pressure Location Blood Pressure Position O2 Sat by Pulse Oximetry 99 Oxygen Delivery Method Room Air Room Air Room Air Oxygen Flow Rate Weight 06/06/23 20:00 06/06/23 21:00 06/06/23 21:28 Temperature 98.6 F Temperature Source Oral Pulse Rate 95 Respiratory Rate 20 Blood Pressure 118/72 Blood Pressure Mean 87 Blood Pressure Location Left Arm Blood Pressure Position Supine O2 Sat by Pulse Oximetry 100 Oxygen Delivery Method Room Air Room Air Room Air Oxygen Flow Rate Weight 06/06/23 22:00 06/06/23 23:00 06/07/23 00:00 Temperature Temperature Source Pulse Rate Respiratory Rate Blood Pressure Blood Pressure Mean Blood Pressure Location Blood Pressure Position O2 Sat by Pulse Oximetry Oxygen Delivery Method Room Air Room Air Room Air Oxygen Flow Rate Weight 06/07/23 01:00 06/07/23 02:00 06/07/23 03:00 Temperature Temperature Source Pulse Rate Respiratory Rate Blood Pressure Blood Pressure Mean Blood Pressure Location Blood Pressure Position O2 Sat by Pulse Oximetry Oxygen Delivery Method Room Air Room Air Room Air Oxygen Flow Rate Weight 06/07/23 04:00 06/07/23 05:00 06/07/23 05:00 Temperature Temperature Source Pulse Rate Respiratory Rate Blood Pressure Blood Pressure Mean Blood Pressure Location Blood Pressure Position O2 Sat by Pulse Oximetry Oxygen Delivery Method Room Air Nasal Cannula Nasal Cannula Oxygen Flow Rate 2 Weight 06/07/23 05:41 06/07/23 05:41 06/07/23 06:00 Temperature 98.8 F Temperature Source Oral Pulse Rate 98 Respiratory Rate 22 H Blood Pressure 116/72 Blood Pressure Mean 86 Blood Pressure Location Left Arm Blood Pressure Position Supine O2 Sat by Pulse Oximetry 99 Oxygen Delivery Method Room Air Room Air Oxygen Flow Rate Weight 327 lb 6 oz 06/07/23 07:00 06/07/23 07:57 06/07/23 08:51 Temperature Temperature Source Pulse Rate Respiratory Rate Blood Pressure Blood Pressure Mean Blood Pressure Location Blood Pressure Position O2 Sat by Pulse Oximetry Oxygen Delivery Method Nasal Cannula Nasal Cannula Nasal Cannula Oxygen Flow Rate Weight 06/07/23 09:45 06/07/23 10:00 06/07/23 10:00 Temperature 97.8 F Temperature Source Oral Pulse Rate 90 Respiratory Rate 20 Blood Pressure 111/63 Blood Pressure Mean 79 Blood Pressure Location Left Arm Blood Pressure Position Supine O2 Sat by Pulse Oximetry 100 Oxygen Delivery Method Room Air Room Air Nasal Cannula Oxygen Flow Rate 2 Weight Lab Results Lab Results: Lab Results: Last 24 Hours 06/07/23 06/07/23 07:40 05:09 WBC 7.87 RBC 3.43 L Hgb 10.8 L Hct 32.2 L MCV 93.9 MCH 31.5 H MCHC 33.5 RDW Coeff of Awilda 13.5 Plt Count 178 Immature Gran % (Auto) 1.1 Neut % (Auto) 60.2 Lymph % (Auto) 29.5 [place] % (Auto) 7.8 Eos % (Auto) 1.1 Baso % (Auto) 0.3 Neut # (Auto) 4.7 Lymph # (Auto) 2.3 [place] # (Auto) 0.6 Eos # (Auto) 0.1 Baso # (Auto) 0.0 Immature Gran # (Auto) 0.1 Sodium 132.6 L Potassium 3.68 Chloride 101.2 Carbon Dioxide 24.3 Anion Gap 10.78 BUN 32.6 H Creatinine 1.23 Estimated GFR (MDRD) 44.00 BUN/Creatinine Ratio 26.50 Glucose 116.7 H Calcium 8.84 Total Bilirubin 1.06 AST 21.9 ALT 19.4 Alkaline Phosphatase 72.4 Total Protein 6.87 Albumin 3.50 Globulin 3.37 Albumin/Globulin Ratio 1.03 Vancomycin Trough 12.299 Additional Comments Additional Comments: I have independently reviewed and interpreted the labs/EKGs/imaging ordered during this hospital stay. I have reviewed outside records that are available in our EMR that pertain to medical stay including imaging/notes/labs from previous visits. Active Medications Active Medications: Medications Generic Name Dose Route Start Last Admin Trade Name Freq PRN Reason Stop Dose Admin Acetaminophen 650 mg 06/03/23 22:49 Acetaminophen 325 Mg Tablet PO Q4H PRN Mild Pain Albuterol Sulfate 2 puff 06/04/23 08:21 Albuterol Sulfate 8 Gm Inhaler IH Q4-6H PRN sob Alprazolam 1 mg 06/04/23 08:21 Alprazolam 0.5 Mg Tablet PO TID PRN Anxiety Cyclobenzaprine HCl 5 mg 06/04/23 09:00 06/07/23 08:54 Cyclobenzaprine Hcl 10 Mg Tablet PO 5 mg TID MARCELINO Administration Enoxaparin Sodium 40 mg 06/04/23 13:00 06/07/23 08:52 Enoxaparin Sodium 40 Mg/0.4 Ml Syr SUBCUT 40 mg DAILY MARCELINO Administration Famotidine 20 mg 06/04/23 09:00 06/07/23 05:23 Famotidine 20 Mg Tablet PO 20 mg BIDAC2 MARCELINO Administration Furosemide 40 mg 06/06/23 08:20 06/07/23 05:24 Furosemide Inj 40 Mg/4 Ml Vial IVP 40 mg Q8HR MARCELINO Administration Gabapentin 100 mg 06/04/23 21:00 06/06/23 21:02 Gabapentin 100 Mg Capsule PO Not Given BEDTIME MARCELINO Hydroxyzine HCl 25 mg 06/04/23 09:00 06/07/23 08:56 Hydroxyzine Hcl 25 Mg Tablet PO Not Given DAILY [facility] CEFEPIME 2 GM/D5W 2 gm in 50 mls @ 100 mls/hr 06/05/23 13:00 06/07/23 05:23 Maxipime 2 Gm/50 Ml D5w IV 06/08/23 12:59 100 mls/hr Q8HR MARCELINO Administration Loratadine 10 mg 06/04/23 09:00 06/07/23 08:55 Loratadine 10 Mg Tablet PO 10 mg DAILY MARCELINO Administration Metoprolol Tartrate 25 mg 06/05/23 11:00 06/07/23 08:56 Metoprolol Tartrate 25 Mg Tablet PO 25 mg DAILY MARCELINO Administration Non-Formulary Medication 30 mg 06/04/23 09:00 06/07/23 09:40 Dextroamphetamine-Amphetamine [Adderall] PO Not Given BID MARCELINO Non-Formulary Medication 42 mg 06/04/23 21:00 06/06/23 20:57 Lumateperone [Caplyta] PO Not Given BEDTIME [facility] Nystatin 1 applic 06/06/23 10:00 06/07/23 09:18 Nystatin 15 Gm Powder TP 1 applic TID MARCELINO Administration Omeprazole 40 mg 06/04/23 09:00 06/07/23 05:23 Omeprazole 20 Mg Capsule.Dr PO 40 mg QDAC2 MARCELINO Administration Ondansetron HCl 4 mg 06/03/23 22:49 Ondansetron Hcl/Pf 4 Mg/2 Ml Sdv IVP Q6H PRN Nausea / Vomiting Oxycodone/Acetaminophen 1 tab 06/04/23 02:29 06/07/23 05:34 Oxycodone/Acetaminophen 10/325 Mg Tablet PO 1 tab Q6H PRN Administration Pain Ropinirole HCl 5 mg 06/04/23 09:00 06/07/23 08:55 Ropinirole Hcl 1 Mg Tablet PO 5 mg BID MARCELINO Administration Rosuvastatin Calcium 5 mg 06/04/23 21:00 06/06/23 20:52 Rosuvastatin Calcium 10 Mg Tablet PO 5 mg BEDTIME MARCELINO Administration Saccharomyces Boulardii 250 mg 06/05/23 10:50 06/07/23 08:55 Saccharomyces Boulardii 250 Mg Capsule PO 250 mg BID MARCELINO Administration Sodium Chloride 1 syr 06/04/23 13:00 06/07/23 05:30 0.9% Sodium Chloride 10 Ml Disp.Syrin IVF 1 syr Q8HR MARCELINO Administration Trazodone HCl 50 mg 06/04/23 21:00 06/06/23 20:55 Trazodone Hcl 50 Mg Tablet PO 50 mg BEDTIME MARCELINO Administration Plan Plan: 1. Acute severe right lower extremity cellulitis - Continue cefepime p seudomonal coverage. Stop vanc today. A1c normal. US negative for DVT. Cont lasix 40 ivp q8hrs. 2. RYANN, stage I in setting of diuretic use - resolved. 3. Lymphedema - Hold bumex. Lasix 40 q8hrs. 4. Hyperlipidemia - Cont home meds 5. Hypertension - Hold losartan due to RYANN. Cont metoprolol. 6. Bipolar - Cont home meds 7. Anxiety - Cont home meds DVT Prophylaxis: Lovenox Dispo: Patient still has significant erythema of RLE and will require another 1- 2 midnights of IV antibiotics. Review Statement Review Statement: I have personally discussed and reviewed the patient's visit/currently labs/imaging/decision making with Dr. Ballard, my supervising attending. Greater that 50 minutes spent with patient, 50% of the time spent with this patient was devoted to counseling and coordination of care.
[2023-06-07] MEDS: CRESTOR PO SCH (20:38)
[2023-06-07] MEDS: DESYREL PO SCH (20:39)
[2023-06-07] MEDS: NON-FORMULARY MEDICATION (Lumateperone [Caplyta] 42 mg capsule) PO SCH (20:40)
[2023-06-07] MEDS: NEURONTIN PO SCH (20:40)
[2023-06-08] MEDS: PERCOCET 10-325 PO PRN ×2 (00:53→08:32)
[2023-06-08] MEDS: PRILOSEC PO SCH (05:11)
[2023-06-08] MEDS: PEPCID PO SCH (05:11)
[2023-06-08] MEDS: MAXIPIME 2 GM/50 ML D5W 2 GM/50 ML BAG IV SCH (05:13)
[2023-06-08] MEDS: LASIX IVP SCH (05:21)
[2023-06-08 05:57] LABS: BASOPHILS % (AUTO) 0.6 % (0.0-3.0); EOSINOPHILS # (AUTO) 0.1 K/ul (0.0-0.7); EOSINOPHILS % (AUTO) 1.9 % (0.0-7.0); HEMATOCRIT 30.9 % (37.0-47.0); IMMATURE GRANULOCYTE # (AUTO) 0.1 (0.0-1.0); IMMATURE GRANULOCYTE % (AUTO) 1.3 % (0.0-5.0); LYMPHOCYTES # (AUTO) 1.7 K/uL (0.60-3.4); LYMPHOCYTES % (AUTO) 24.6 (10.0-50.0); MEAN CORPUSCULAR HEMOGLOBIN 30.7 pg (27.0-31.0); MEAN CORPUSCULAR HGB CONC 32.4 (31.8-35.4); MEAN CORPUSCULAR VOLUME 94.8 fl (81.0-99.0); MONOCYTES # (AUTO) 0.6 K/uL (0.4-2.0); NEUTROPHILS # (AUTO) 4.5 K/ul (2.0-6.9); NEUTROPHILS % (AUTO) 63.6 % (42.2-75.2); PLATELET COUNT 193 10^3/uL (140-440); RDW COEFFICIENT OF VARIATION 13.5 % (11.6-14.8); RED BLOOD COUNT 3.26 10^6/ul (4.20-5.40)
[2023-06-08 06:08] LABS: ALANINE AMINOTRANSFERASE 19.8 U/L (0-35); ALBUMIN 3.35 g/dL (3.5-5.0); ALKALINE PHOSPHATASE 72.7 U/L (53-141); ASPARTATE AMINO TRANSFERASE 24.8 U/L (14-36); BILIRUBIN,TOTAL 0.8 mg/dL (0.2-1.3); CALCIUM 8.87 mg/dL (8.4-10.2); CARBON DIOXIDE 25.6 mmol/L (22-30.0); CHLORIDE 101.5 mmol/L (98-107); CREATININE 1.61 mg/dL (0.60-1.30); GLUCOSE 120.7 mg/dL (74-106); POTASSIUM 3.39 mmol/L (3.5-5.1); SODIUM 132.7 mmol/L (134.5-145); TOTAL PROTEIN 6.65 g/dL (6.3-8.2)
[2023-06-08] MEDS ORDERED: K-DUR PO ONE (08:16)
[2023-06-08] MEDS: LOPRESSOR PO SCH (08:19)
[2023-06-08] MEDS: ATARAX PO SCH (08:19)
[2023-06-08] MEDS: FLORASTOR PO SCH (08:19)
[2023-06-08] MEDS: REQUIP PO SCH (08:19)
[2023-06-08] MEDS: FLEXERIL PO SCH ×2 (08:20→08:39)
[2023-06-08] MEDS: LOVENOX SUBCUT SCH (08:20)
[2023-06-08] MEDS: CLARITIN PO SCH (08:20)
[2023-06-08] MEDS: DEXTROAMPHETAMINE AMPHETAMINE 30 MG PO SCH (08:37)
[2023-06-08] MEDS: NYSTOP POWDER TP SCH (08:39)
[2023-06-08 09:51] VITALS: BP 100/58; PULSE 80; RESP 20; TEMP 97.8
--- NOTE | 2023-06-08 10:05 | CT ---
EXAM: CT OF THE RIGHT TIBIA/FIBULA WITH INTRAVENOUS CONTRAST COMPARISON: CT of the right tibia/fibula, ankle and foot 06/03/2023. HISTORY: Redness, warmth and swelling. TECHNIQUE: CT images were obtained through the right lower extremity with field of view extending fr om the knee through the upper ankle following the intravenous administration of 100 mL of Visipaque 3 20. Axial reconstructions with sagittal coronal reformats were provided. Dedicated CT imaging of th e right foot and ankle was also performed that report will be dictated separately. FINDINGS: There is marked subcutaneous edema ill-defined subcutaneous fluid circumferentially throug hout the right calf extending proximally through the knee and visualized thigh as well as more distal ly through the visualized portions of the ankle. This is nonspecific but concerning for cellulitis g iven the clinical history with circumferential skin thickening. Minimal superficial irregularity the skin surface circumferentially without deep soft tissue ulcer, drainable subcutaneous fluid collecti on or deep soft tissue gas. Postoperative scarring anteriorly at the knee. There is beam hardening artifact related to the patient's right total knee arthroplasty without evide nce of component dislocation or definite evidence of component loosening. No acute fracture identifi ed. No evidence of acute osteomyelitis. Vascular calcifications and scattered dystrophic calcifications throughout the soft tissues. Diffuse muscle atrophy without a discrete drainable intramuscular/deep fascial fluid collection or deep soft tissue gas. Partially imaged degenerative change at the ankle. Please see the separately dictated CT of the foot and ankle report. No focal concerning osseous lesion. IMPRESSION: Marked soft tissue swelling throughout the calf extending through the visualized knee an d ankle with skin thickening suggesting cellulitis. No drainable fluid collection or deep soft tissu e gas. No deep soft tissue ulceration. No evidence of an acute fracture or osteomyelitis. Postoperative changes of the right knee. Partially imaged degenerative changes of the knee. Additional chronic findings as detailed above. Please see the separately dictated CT of the right fo ot and ankle report. All CT scans are performed using dose optimization techniques as appropriate to the performed exam an d include at least one of the following: Automated exposure control, adjustment of the mA and/or kV according t o size, and the use of iterative reconstruction technique.
--- NOTE | 2023-06-08 10:10 | CT ---
EXAM: CT OF THE RIGHT FOOT WITH INTRAVENOUS CONTRAST COMPARISON: CT of the right foot and ankle 06/03/2023. HISTORY: Redness, swelling and warmth. TECHNIQUE: CT images of the right foot and ankle were obtained following the intravenous administrat ion of 100 mL of Visipaque 320. Axial reconstructions with sagittal and coronal reformats were provi ded. Dedicated CT imaging of the right tibia/fibula was also performed and that report has been dict ated separately. FINDINGS: Marked circumferential soft tissue swelling with subcutaneous edema and ill-defined subcut aneous fluid as well as skin thickening throughout the foot and ankle through the visualized distal c lily. This is nonspecific but may represent cellulitis given the clinical history. No deep soft tiss ue ulcer, drainable subcutaneous fluid collection deep soft tissue gas identified. Scattered vascula r as well as dystrophic calcifications. Diffuse muscle atrophy. No evidence of acute osteomyelitis. No acute fracture. Suspected pes planus deformity on the basis of this nonweightbearing exam with vertical orientation of the talus and sagging of the mid foot. Co rrelate with weight bearing radiographs. Chronic-appearing deformity of osseous remodeling between t he talus and calcaneus at the sinus tarsi through the adjacent portion of the subtalar joint. Tibiot alar joint osteoarthrosis with severe joint space narrowing posteromedially. Mild asymmetric widenin g of the ankle mortise could be related to instability/underlying ligament injury. Chronic deformity spurring of the medial and lateral malleoli. Moderate degenerative change throughout the remainder of the ankle/hind-foot with mild to moderate degenerative spurring at the tarsometatarsal joints. De mineralization. Plantar calcaneal retrocalcaneal spurs. Small corticated ossifications adjacent to the distal calcaneus, favoring sequela of old trauma. There is a well corticated ossification measur ing 0.7 cm in size dorsally along the proximal first interspace adjacent to the first metatarsal base just distal to the Lisfranc ligament favoring an accessory ossicle or less likely sequela old trauma . Degenerative changes of the forefoot most pronounced involving the interphalangeal joints. Bipart ite tibial sesamoid. Demineralization. Suspected hind-foot valgus deformity. Degenerative change b etween the lateral malleolus lateral portion of the calcaneus suggesting sequela of sub fibular impin gement. 0.3 cm lucency within the medial corner talar dome may represent a small subchondral cyst/os teochondral lesion. IMPRESSION: Circumferential soft tissue swelling of the foot and ankle is nonspecific but may repres ent cellulitis. No deep soft tissue ulcer, drainable fluid collection or deep soft tissue gas. No e vidence of acute osteomyelitis. Suspected pes planus deformity as well as suspected hind-foot valgus deformity and sequela of sub fib ular impingement as detailed above. Correlation with weight bearing radiographs can be considered. Degenerative changes of the foot and ankle with most severe osseous remodeling of the subtalar joint and along the sinus tarsi as detailed above. Demineralization. Additional chronic findings as detailed above. Please see the separately dictated CT of the tibia/fi bular report. All CT scans are performed using dose optimization techniques as appropriate to the performed exam an d include at least one of the following: Automated exposure control, adjustment of the mA and/or kV according t o size, and the use of iterative reconstruction technique.
--- NOTE | 2023-06-08 10:53 | DCSUM ---
Admission Date Admission Date: 06/03/23 Discharge Date Discharge Date: 06/08/23 Admission Diagnosis Admission Diagnosis: 1. Acute severe right lower extremity cellulitis 2. RYANN, stage I in setting of diuretic use Discharge Diagnosis Discharge Diagnosis: 1. Acute right lower extremity cellulitis 2. RYANN, stage I in setting of diuretic use 3. Lymphedema 4. Hyperlipidemia 5. Hypertension 6. Bipolar 7. Anxiety Hospital Provider Hospital Provider: CORDELIA ALVARADO PA-C, [facility] Primary Care Physician Primary Care Physician: NICOLA NYE Summary of History and Physical Summary of History and Physical: Patient is a 62 year old female with pmhx of lymphedema, anxiety, bipolar I, COPD, recurrent cellulitis, hypertension, hyperlipidemia, who presented to the ER with worsening lower ext swelling, right lower ext redness. Patient states Saturday she noticed worsening swelling. Spoke to her PCP who instructed her to d ouble up her bumex for the weekend. She states Saturday she woke up with redness of the right lower ext. This is a recurrent problem for the patient, requiring hospitalization in the past year. In ER patient had CT images of right lower extremity without abscess. Labs unremarkable except for a notable increase in her BUN and CR, likely from increasing her bumex dose over the weekend. Patient was given fluids, keflex, and lovenox. On my evaluation this morning patient states her legs feel really swollen and the redness of the RLE is about the same. Hospital Course Subjective: Patient was treated with Vancomycin initially. Cefepime added for pseudomonal coverage the second day. A1c normal. MRSA swab negative. US negative for DVT. Pt's renal function improved and IV lasix was started. However, patient did not diurese much considering. Patient continues to have redness of RLE. Seems to be multifactoral including her lymphedema and likely venous insufficiency. Wound culture was obtained from a small draining area of medial leg, it grew klebsiella sensitive to cefepime and augmentin. Ct scans were repeated day of discharge with contrast to r/o underlying abscess. Scans showed cellulitis but no abscess or signs of osteo. WBC count has remained normal. No fevers. Will dc with augmentin script. Encouraged close f/u with pcp. She is also looking into therapy for lymphedema. Consider wound clinic as well if needed. Patient agrees to plan of care. Appearance: Pleasant, No Apparent Distress, Alert and Other (+OBESE ) HEENT: MMM CVS: No Murmur Abdomen: Soft, Non-Tender and No Distention Additional Findings: RLE - +erythematous, warm nonpurulent circumferential rash just below right knee extending to forefoot. Similar to yesterday, no significant changes. Blanches. No desquamation of the skin. No drainage. Pitting edema noted. Few isolated fluid filled blisters noted. Chronic venous stasis changes noted. Pulses difficult to palpate due to swelling/body habitus. No pain with palpation today. Vital Signs: Most Recent Vital Signs Temperature 97.8 F 06/08/23 09:50 Temperature Source Oral 06/08/23 09:50 Temperature Source Oral 06/03/23 17:42 Pulse Rate 80 06/08/23 09:50 Respiratory Rate 20 06/08/23 09:50 Blood Pressure 100/58 L 06/08/23 09:50 Blood Pressure Mean 72 06/08/23 09:50 Blood Pressure Right Arm 90/54 06/04/23 00:13 Blood Pressure Location Left Arm 06/08/23 09:50 Blood Pressure Position Sitting 06/08/23 09:50 O2 Sat by Pulse Oximetry 96 06/08/23 09:50 Oxygen Delivery Method Room Air 06/08/23 10:47 Oxygen Flow Rate 2 06/07/23 17:05 Height 5 ft 8 in 06/04/23 00:13 Weight 326 lb 2 oz 06/08/23 05:07 Telemetry Heart Rate 114 H 08/19/16 19:00 Telemetry SPO2 84 L 08/18/16 07:00 Imaging: EXAM: CT RIGHT FOOT WITHOUT CONTRAST History: Right lower extremity cellulitis Technique: 2.[address] of the right foot without contrast FINDINGS: Circumferential edema of the subcutaneous fat with skin thickening. No soft tissue gas. No organizing collection. Edema is confined to the subcutaneous planes. No acute bony abnormalities are seen. Impression: 1. No acute bony abnormalities of the foot 2. Circumferential edema and skin thickening. No organizing inflammatory mass or collection EXAM: CT RIGHT KNEE HISTORY: Cellulitis TECHNIQUE: CT right knee without contrast. Multiplanar images. FINDINGS: Diagnostic limitations exist without including intravenous contrast enhanced images. Previous total knee arthroplasty. Prosthetic units lead to artifact degrading image quality although appear seated without evidence of dislodgement or loosening. There is no visible joint effusion. The subcutaneous fat is diffusely stranded consistent with edema and / or cellulitis. No defined or organized fluid collection to indicate abscess is suggested. The deep tissue planes and muscular tissues are preserved. IMPRESSION: 1. Subcutaneous fat stranding indicating edema and / or cellulitis. No abscess or soft tissue gas is seen. EXAM: CT RIGHT LOWER EXTREMITY WITHOUT CONTRAST History: Right lower extremity cellulitis Technique: 2.[address] of the right lower leg from the distal femur through the ankle. FINDINGS: Circumferential edema of the lower leg. Edema limited to the subcutaneous fat planes. No soft tissue gas organizing collection. Venous varicosities are present. No acute bony abnormalities. Knee arthroplasty in place. Impression: Marked subcutaneous edema of the lower leg. No organized inflammatory mass or collection. EXAM: ULTRASOUND VENOUS DOPPLER RIGHT LOWER EXTERMITY HISTORY: Swelling, pain COMPARISON: None TECHNIQUE: Venous duplex ultrasound of the right lower extremity was performed. Greyscale, color doppler, spectral doppler imaging performed. FINDINGS: There is normal color flow and compression of the right common femoral, greater saphenous, profunda femoral, femoral, popliteal, peroneal, posterior tibial, and anterior tibial veins without evidence of intraluminal thrombus. Right lower extremity subcutaneous edema. IMPRESSION: No evidence for right lower extremity deep venous thrombosis. EXAM: CT OF THE RIGHT FOOT WITH INTRAVENOUS CONTRAST COMPARISON: CT of the right foot and ankle 06/03/2023. HISTORY: Redness, swelling and warmth. TECHNIQUE: CT images of the right foot and ankle were obtained following the intravenous administration of 100 mL of Visipaque 320. Axial reconstructions with sagittal and coronal reformats were provided. Dedicated CT imaging of the right tibia/fibula was also performed and that report has been dictated separately. FINDINGS: Marked circumferential soft tissue swelling with subcutaneous edema and ill-defined subcutaneous fluid as well as skin thickening throughout the foot and ankle through the visualized distal calf. This is nonspecific but may represent cellulitis given the clinical history. No deep soft tissue ulcer, drainable subcutaneous fluid collection deep soft tissue gas identified. Scattered vascular as well as dystrophic calcifications. Diffuse muscle atrophy. No evidence of acute osteomyelitis. No acute fracture. Suspected pes planus deformity on the basis of this nonweightbearing exam with vertical orientation of the talus and sagging of the mid foot. Correlate with weight bearing radiographs. Chronic-appearing deformity of osseous remodeling between the talus and calcaneus at the sinus tarsi through the adjacent portion of the subtalar joint. Tibiotalar joint osteoarthrosis with severe joint space narrowing posteromedially. Mild asymmetric widening of the ankle mortise could be related to instability/underlying ligament injury. Chronic deformity spurring of the medial and lateral malleoli. Moderate degenerative change throughout the remainder of the ankle/hind-foot with mild to moderate degenerative spurring at the tarsometatarsal joints. Demineralization. Plantar calcaneal retrocalcaneal spurs. Small corticated ossifications adjacent to the distal calcaneus, favoring sequela of old trauma. There is a well corticated ossification measuring 0.7 cm in size dorsally along the proximal first interspace adjacent to the first metatarsal base just distal to the Lisfranc ligament favoring an accessory ossicle or less likely sequela old trauma. Degenerative changes of the forefoot most pronounced involving the interphalangeal joints. Bipartite tibial sesamoid. Demineralization. Suspected hind-foot valgus deformity. Degenerative change between the lateral malleolus lateral portion of the calcaneus suggesting sequela of sub fibular impingement. 0.3 cm lucency within the medial corner talar dome may represent a small subchondral cyst/osteochondral lesion. IMPRESSION: Circumferential soft tissue swelling of the foot and ankle is nonspecific but may represent cellulitis. No deep soft tissue ulcer, drainable fluid collection or deep soft tissue gas. No evidence of acute osteomyelitis. Suspected pes planus deformity as well as suspected hind-foot valgus deformity and sequela of sub fibular impingement as detailed above. Correlation with weight bearing radiographs can be considered. Degenerative changes of the foot and ankle with most severe osseous remodeling of the subtalar joint and along the sinus tarsi as detailed above. Demineralization. Additional chronic findings as detailed above. Please see the separately dictated CT of the tibia/fibular report. EXAM: CT OF THE RIGHT TIBIA/FIBULA WITH INTRAVENOUS CONTRAST COMPARISON: CT of the right tibia/fibula, ankle and foot 06/03/2023. HISTORY: Redness, warmth and swelling. TECHNIQUE: CT images were obtained through the right lower extremity with field of view extending from the knee through the upper ankle following the intravenous administration of 100 mL of Visipaque 320. Axial reconstructions with sagittal coronal reformats were provided. Dedicated CT imaging of the right foot and ankle was also performed that report will be dictated separately. FINDINGS: There is marked subcutaneous edema ill-defined subcutaneous fluid circumferentially throughout the right calf extending proximally through the knee and visualized thigh as well as more distally through the visualized portions of the ankle. This is nonspecific but concerning for cellulitis given the clinical history with circumferential skin thickening. Minimal superficial irregularity the skin surface circumferentially without deep soft tissue ulcer, drainable subcutaneous fluid collection or deep soft tissue gas. Postoperative scarring anteriorly at the knee. There is beam hardening artifact related to the patient's right total knee arthroplasty without evidence of component dislocation or definite evidence of component loosening. No acute fracture identified. No evidence of acute osteomyelitis. Vascular calcifications and scattered dystrophic calcifications throughout the soft tissues. Diffuse muscle atrophy without a discrete drainable intramuscular/deep fascial fluid collection or deep soft tissue gas. Partially imaged degenerative change at the ankle. Please see the separately dictated CT of the foot and ankle report. No focal concerning osseous lesion. IMPRESSION: Marked soft tissue swelling throughout the calf extending through the visualized knee and ankle with skin thickening suggesting cellulitis. No drainable fluid collection or deep soft tissue gas. No deep soft tissue ulceration. No evidence of an acute fracture or osteomyelitis. Postoperative changes of the right knee. Partially imaged degenerative changes of the knee. Additional chronic findings as detailed above. Please see the separately dictated CT of the right foot and ankle report. Lab Results Last 24 Hours: 06/08/23 05:05 WBC 7.00 RBC 3.26 L Hgb 10.0 L Hct 30.9 L MCV 94.8 MCH 30.7 MCHC 32.4 RDW Coeff of Awilda 13.5 Plt Count 193 Immature Gran % (Auto) 1.3 Neut % (Auto) 63.6 Lymph % (Auto) 24.6 Clark % (Auto) 8.0 Eos % (Auto) 1.9 Baso % (Auto) 0.6 Neut # (Auto) 4.5 Lymph # (Auto) 1.7 Clark # (Auto) 0.6 Eos # (Auto) 0.1 Baso # (Auto) 0.0 Immature Gran # (Auto) 0.1 Sodium 132.7 L Potassium 3.39 L Chloride 101.5 Carbon Dioxide 25.6 Anion Gap 8.99 BUN 33.0 H Creatinine 1.61 H Estimated GFR (MDRD) 32.00 BUN/Creatinine Ratio 20.49 Glucose 120.7 H Calcium 8.87 Total Bilirubin 0.80 AST 24.8 ALT 19.8 Alkaline Phosphatase 72.7 Total Protein 6.65 Albumin 3.35 L Globulin 3.30 Albumin/Globulin Ratio 1.01 Discharge Instructions Discharge Planning: Discharge Planning > [address] Fredy Ballard. Discharge Medications: Medications at Discharge (Home Meds & RX) ropinirole 5 mg tablet (Requip) 5 mg PO BID 06/11/13 montelukast 10 mg tablet 10 mg PO DAILY 04/11/17 albuterol sulfate 90 mcg/actuation aerosol inhaler 2 puff inhalation Q4-6H PRN SHORTNESS OF AIR 09/22/21 alprazolam 1 mg tablet 1 mg PO TID PRN Anxiety 06/12/22 cetirizine 10 mg tablet (Allergy Relief (cetirizine)) 10 mg PO DAILY 06/12/22 cyclobenzaprine 5 mg tablet 5 mg PO TID 06/12/22 famotidine 20 mg tablet 20 mg PO BID 06/12/22 lumateperone 42 mg capsule (Caplyta) 42 mg PO BEDTIME 06/12/22 potassium chloride 20 mEq tablet,extended release(part/cryst) 20 meq PO DAILY 06/12/22 omeprazole 40 mg capsule,delayed release 40 mg PO DAILY 06/14/22 dextroamphetamine-amphetamine 30 mg tablet (Adderall) 30 mg PO BID ##75 07/04/22 hydroxyzine HCl 25 mg tablet 25 mg PO DAILY 07/04/22 oxycodone-acetaminophen 10 mg-325 mg tablet (Percocet) 1 tab PO Q6H PRN pain 07/04/22 Bumex 1 mg PO DAILY 11/23/22 rosuvastatin 5 mg tablet 5 mg PO BEDTIME 11/23/22 cholecalciferol (vitamin D3) 25 mcg (1,000 unit) capsule (Vitamin D3) 25 mcg PO DAILY 06/04/23 gabapentin 100 mg capsule 100 mg PO BEDTIME 06/04/23 metoprolol tartrate 25 mg tablet 25 mg PO DAILY 06/04/23 trazodone 50 mg tablet 50 mg PO BEDTIME 06/04/23 triamcinolone acetonide 0.1 % topical cream 1 applic topical BID 06/04/23 varenicline 1 mg tablet 1 mg PO DAILY 06/04/23 Discharge Plan Discharge Discharge Orders: Discharge Patient (ONCE); Ordered 06/08/23 Ordered By: CORDELIA ALVARADO Activity Restrictions/Additional Instructions: DISCHARGE TO HOME F/U WITH PCP FOR RECHECK THIS WEEK DX: CELLULITIS, RIGHT DIET: HEART HEALTHY ACTIVITY: TOLERATED RESTART BUMEX TOMORROW 06/09 Instructions: Cellulitis (GEN) Care Plan Goals: Problem: Infection Goal #1: No signs/symptoms of infection Instructions: Monitor for sign/symptoms of infection Monitor temperature Goal #2: White blood cell counts Within Normal Limits Instructions: Obtain labs per physician orders Patient Disposition: HOME SELF-CARE Prescriptions: New amoxicillin-pot clavulanate 875-125 mg tablet 1 tab PO BID Qty: 14 0RF Continued montelukast 10 MG tablet 10 mg PO DAILY dextroamphetamine-amphetamine [Adderall] 30 mg tablet 30 mg PO BID Qty: 75 Rx Instructions: 1 tablet at 0700; 1 tablet at noon and 1/2 tablet at 1600 ropinirole [Requip] 5 MG tablet 5 mg PO BID albuterol sulfate 90 mcg/actuation HFA aerosol inhaler 2 puff INHALATION Q4-6H PRN (Reason: SHORTNESS OF AIR) Bumex 1 mg PO DAILY rosuvastatin 5 mg tablet 5 mg PO BEDTIME gabapentin 100 mg capsule 100 mg PO BEDTIME metoprolol tartrate 25 mg tablet 25 mg PO DAILY trazodone 50 mg tablet 50 mg PO BEDTIME triamcinolone acetonide 0.1 % cream 1 applic TOPICAL BID Rx Instructions: APPLY TO LEGS TWICE DAILY varenicline 1 mg tablet 1 mg PO DAILY cholecalciferol (vitamin D3) [Vitamin D3] 25 mcg (1,000 unit) capsule 25 mcg PO DAILY cetirizine [Allergy Relief (cetirizine)] 10 mg tablet 10 mg PO DAILY alprazolam 1 mg tablet 1 mg PO TID PRN (Reason: Anxiety) potassium chloride 20 mEq tablet,ER particles/crystals 20 meq PO DAILY famotidine 20 mg tablet 20 mg PO BID cyclobenzaprine 5 mg tablet 5 mg PO TID Caplyta 42 mg capsule 42 mg PO BEDTIME omeprazole 40 mg Capsule,Delayed Release(Dr/Ec) 40 mg PO DAILY oxycodone-acetaminophen [Percocet] 10-325 mg tablet 1 tab PO Q6H PRN (Reason: pain) hydroxyzine HCl 25 mg tablet 25 mg PO DAILY Discontinued losartan [Cozaar] 100 MG tablet 100 mg PO DAILY losartan 50 mg tablet 50 mg PO BEDTIME Did you review [place] [facility] [facility] for ALL controlled substances?: Yes Discussed opioids are addictive and Narcan is available by prescription or from pharmacy.: Yes Condition: Stable Referrals: NICOLA NYE [Primary Care Provider] - 06/14/23 2:30 pm
== END 2023-06-08 12:15 | disposition home or self-care (01) ==
LOC: MEDSURG B 17:39 → ED 17:39 → MEDSURG B 06-04 00:25
PROVIDERS: ADMIT Hospitalist; ATTEND Physician Assistant

== ENCOUNTER 2024-04-07 13:07 | Inpatient (IN) ==
--- NOTE | 2024-04-07 13:40 | ED.PDOC ---
General ED Provider: Dr. NIKKO MARTÍNEZ MD Chief Complaint: Fall Stated Complaint: 63 yo WF lives alone and her son lives next door, was trying to transferred herself from her power chair to regular chair when her legs locked up and difficulty moving it-so she decided to threw herself onto the chair and hit the edge and fell. Was not able to get up and call EMS for lift support. This AM she have some difficulty moving her L lower extremity. Denied hitting her head, hurting her neck, ribs or back. Some pain on the L knee down. She also reported more significant swelling of her lymphedema. Was on Bumex. Hx of spinal stenosis, bipolar, COPD, HTN, AFib, R DVT in September 2023, CKI in September when his Creatinine cristina to 4.1. No fever. No chest pain or SOB. Recently seen in clinic for home BiPap machine for her QUINTON Time Seen by Provider: 04/07/24 13:16 Mode of Arrival: Ambulance Information Source: Patient Exam Limitations: No limitations Primary Care Provider: NICOLA NYE Referred to ED by: Other (self) Nursing and Triage Documentation Reviewed and Agree: Yes What is Opioid Naive?: *Opioid Naive implies the patient is not already taking opioids or not chronically receiving opioids on a daily basis. *PRN dosing is not "usually" associated with tolerance. *Patients are at higher risk of over-sedation and aspiration. What is Opioid Tolerant?: *Opioid Tolerance implies less than the expected response to an opioid. *Acquired tolerance is defined by the patient taking 60mg of oral morphine daily (or equianalgesic dose of another opioid) for 1 week or more. *Often associated with chronic pain. *May take more than usual dose to achieve desired pain control. 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 Q85.89 - Other phakomatoses, not elsewhere classified (ICD-10) COPD (chronic obstructive pulmonary disease) J44.9 - Chronic obstructive pulmonary disease, unspecified (ICD-10) Hypertension I10 - Essential (primary) hypertension (ICD-10) Normal menstrual period Back pain M54.9 - Dorsalgia, unspecified (ICD-10) Convulsions medical marijuanas in a cream she rubs on her body. Hasn't had a seizure in 4 years due to the marijuana. R56.9 - Unspecified convulsions (ICD-10) Leg pain M79.606 - Pain in leg, unspecified (ICD-10) Family History Mother Hypertension FATHER Cirrhosis of liver Alcohol abuse BROTHER Depression Social History Smoking and tobacco status: Current every day smoker Tobacco type: cigarettes Smoking packs per day: 1 Smoking cigarettes per day: 20.0 Years smoked: 55 Quit status: considering quitting Alcohol intake: never Substance use type: other Details: pt makes a pain cream, has a medical marijuana card Gina/latter-day: NONE Special gina needs: No Agree to transfusion: Yes Adopted: No Caregiver/support person: No Household members: none Housing: other Marital status: D Lives independently: Yes Number of children: 1 Number of grandchildren: 0 Highest education level completed: high school graduate Financial difficulty paying for basics: somewhat hard service: No Current occupational status: disabled Pets and animals: Yes (3 dogs) History of recent travel: No Current gender identity: female Water heater temperature set < 120 degrees: Yes Working smoke detector in home: Yes Fire extinguisher in home: Yes Carbon monoxide detector in home: Yes Firearms in home: No Surgical History History of appendectomy Z90.49 - Acquired absence of other specified parts of digestive tract (ICD- 10) H/O knee surgery left side then right side. Right side wouldn't heal and had another knee placed on the right side. Z98.890 - Other specified postprocedural states (ICD-10) History of cholecystectomy 1994 Z90.49 - Acquired absence of other specified parts of digestive tract (ICD- 10) History of partial mastectomy of both breasts 1990 Z90.13 - Acquired absence of bilateral breasts and nipples (ICD-10) Gastric bypass status for obesity 1988 Z98.84 - Bariatric surgery status (ICD-10) Previous back surgery fusion L4 and L5 Z98.890 - Other specified postprocedural states (ICD-10) Female Reproductive History Menstrual Hx Hysterectomy: Yes Hx Tubal Ligation: No Physical Exam Physical Exam Appearance: Reports Obese Ill-appearing: None Pain Distress: Mild Eyes: Reports EOMI ENT: Reports Ears normal and Oropharynx normal Neck: Supple Respiratory: Reports Airway patent, Breath sounds clear and Breath sounds equal Cardiovascular: Reports RRR, Pulses normal, No rub and No murmur GI/: Reports Soft, No masses and Bowel sounds normal Musculoskeletal: Reports Normal strength, Limited ROM and Edema (Diffuse edema to the proximal thigh in both leg. Some bruising on the L anterior knee. Limited movement of both lower extremities. Diffuse erythema but no warmth. ) Skin: Reports Warm and Dry Neurological: Reports Sensation intact and Motor intact Psychiatric: Reports Affect appropriate and Mood appropriate Physician Notification Case Discussed Physician Notified: Miri Strange Time of Notification: 15:45 Comments: OK to admit to OBS Course Course 04/07/24 13:47 04/07/24 13:47 Orders, Labs, Meds: Lab Review 04/07/24 04/07/24 13:47 14:40 WBC 7.80 RBC 3.95 L Hgb 11.7 L Hct 37.4 MCV 94.7 MCH 29.6 MCHC 31.3 L RDW Coeff of Awilda 14.9 H Plt Count 145 Immature Gran % (Auto) 0.4 Neut % (Auto) 65.2 Lymph % (Auto) 24.6 Wayne % (Auto) 6.5 Eos % (Auto) 2.9 Baso % (Auto) 0.4 Neut # (Auto) 5.1 Lymph # (Auto) 1.9 Wayne # (Auto) 0.5 Eos # (Auto) 0.2 Baso # (Auto) 0.0 Immature Gran # (Auto) 0.0 Sodium 137.0 Potassium 4.00 Chloride 105.1 Carbon Dioxide 29.7 Anion Gap 6.20 BUN 24.4 H Creatinine 1.32 H Estimated GFR (MDRD) 41.00 BUN/Creatinine Ratio 18.48 Glucose 104.4 Calcium 9.05 Total Bilirubin 1.68 H AST 43.4 H ALT 52.5 H Alkaline Phosphatase 95.0 NT-Pro-B Natriuret Pep 2300 H Total Protein 6.18 L Albumin 3.61 Globulin 2.57 Albumin/Globulin Ratio 1.40 SARS CoV-2 RNA Rapid KHUSHI Negative Orders Category Date Time Status Saline Lock [ED IV/MEDIPORT/POWERPORT] .ONCE EMERGENCY 04/07/24 13:25 Active CBC W/ AUTO DIFF Stat LAB 04/07/24 13:47 Completed CMP [COMPREHENSIVE METABOLIC PANEL] Stat LAB 04/07/24 13:47 Completed NT-PROBNP(ED) Stat LAB 04/07/24 13:47 Completed SARS COV-2 RNA RAPID KHUSHI Stat LAB 04/07/24 14:40 Completed 0.9 % Sodium Chloride [Saline Flush] Meds 04/07/24 13:25 Active 1 syr IVF PRN PRN Bumetanide [Bumex] Meds 04/07/24 15:25 Discontinued 1 mg IVP ONCE ONE Hydrocodone Bit/Acetaminophen [S[place]an 7.5-325] Meds 04/07/24 16:09 Discontinued 1 tab PO ONCE ONE FEMUR, LEFT 2 VIEWS Stat RADS 04/07/24 13:25 Completed PELVIS 1 OR 2 VIEWS Stat RADS 04/07/24 13:25 Completed TIBIA/FIBULA, LEFT 2 VIEWS Stat RADS 04/07/24 13:25 Completed US VENOUS SCAN LT LEG [U/S VENOUS SCAN LT LEG] Stat RADS 04/07/24 15:24 Completed Medications Generic Name Dose Route Start Last Admin Trade Name Freq PRN Reason Stop Dose Admin Sodium Chloride 1 syr 04/07/24 13:25 04/07/24 16:05 0.9% Sodium Chloride 10 Ml Disp.Syrin IVF 1 syr PRN PRN Administration To flush IV Discontinued Medications Generic Name Dose Route Start Last Admin Trade Name Freq PRN Reason Stop Dose Admin Hydrocodone Bitart/Acetaminophen 1 tab 04/07/24 16:09 04/07/24 16:15 Hydrocodone Bit/Acetaminophen 7.5/325 Mg Tablet PO 04/07/24 16:10 1 tab ONCE ONE Administration Bumetanide 1 mg 04/07/24 15:25 04/07/24 16:04 Bumetanide 1 Mg/4 Ml Vial IVP 04/07/24 15:26 1 mg ONCE ONE Administration Vital Signs: Temp Pulse Resp BP Pulse Ox 04/07/24 13:13 97.0 F L 107 H 20 180/147 H 96 Discharge Plan Discharge Patient Disposition: PLACED OBSERVATION Discharge Problem: Weakness generalized, Lymphedema, Heart failure Did you review [place] [employer]EL [employer] ADVISOR for ALL controlled substances?: Not Applicable ED Provider: NIKKO MARTÍNEZ Condition: Fair Physician Progress Note: Patient given a hydrocodone for pain; she reported is on oxycodone. She has gained over 60# and unable to stand and transfer. Discussed and will admit to OBS. U/S neg for DVT on the LLE and routine x-rays neg for fx
[2024-04-07 13:53] LABS: BASOPHILS % (AUTO) 0.4 % (0.0-3.0); EOSINOPHILS # (AUTO) 0.2 K/ul (0.0-0.7); EOSINOPHILS % (AUTO) 2.9 % (0.0-7.0); HEMATOCRIT 37.4 % (37.0-47.0); HEMOGLOBIN 11.7 g/dl (12.0-16.0); IMMATURE GRANULOCYTE % (AUTO) 0.4 % (0.0-5.0); LYMPHOCYTES # (AUTO) 1.9 K/uL (0.60-3.4); LYMPHOCYTES % (AUTO) 24.6 (10.0-50.0); MEAN CORPUSCULAR HEMOGLOBIN 29.6 pg (27.0-31.0); MEAN CORPUSCULAR HGB CONC 31.3 (31.8-35.4); MEAN CORPUSCULAR VOLUME 94.7 fl (81.0-99.0); MONOCYTES # (AUTO) 0.5 K/uL (0.4-2.0); MONOCYTES % (AUTO) 6.5 (0-10); NEUTROPHILS # (AUTO) 5.1 K/ul (2.0-6.9); NEUTROPHILS % (AUTO) 65.2 % (42.2-75.2); PLATELET COUNT 145 10^3/uL (140-440); RDW COEFFICIENT OF VARIATION 14.9 % (11.6-14.8); RED BLOOD COUNT 3.95 10^6/ul (4.20-5.40)
[2024-04-07 14:07] LABS: ALANINE AMINOTRANSFERASE 52.5 U/L (0-35); ALBUMIN 3.61 g/dL (3.5-5.0); ASPARTATE AMINO TRANSFERASE 43.4 U/L (14-36); BILIRUBIN,TOTAL 1.68 mg/dL (0.2-1.3); BLOOD UREA NITROGEN 24.4 mg/dL (7-17); CALCIUM 9.05 mg/dL (8.4-10.2); CARBON DIOXIDE 29.7 mmol/L (22-30.0); CHLORIDE 105.1 mmol/L (98-107); CREATININE 1.32 mg/dL (0.60-1.30); GLUCOSE 104.4 mg/dL (74-106); TOTAL PROTEIN 6.18 g/dL (6.3-8.2)
--- NOTE | 2024-04-07 14:34 | DI ---
EXAM: LEFT TIBIA-FIBULA TWO-VIEW HISTORY: Fall. COMPARISON: CT of the left tibia and fibula from 10/02/2023. FINDINGS: see impression. IMPRESSION: Generalized osteopenia. This limits evaluation for subtle, nondisplaced fractures. There is a questionable cortical step off in the proximal fibula. However, this is only seen on the lateral view and may be projectional. Degenerative changes to the ankle and foot. Left knee arthroplasty. Soft tissue edema about the lower leg, ankle and foot. If symptoms persist, or if there is clinical concern for occult injury, recommend follow-up MRI exami [facility].
--- NOTE | 2024-04-07 14:34 | DI ---
EXAM: SINGLE VIEW OF THE PELVIS HISTORY: Fall. COMPARISON: The left femoral x-rays same day FINDINGS: Pelvic ring is intact. There is degenerative disease of the left hip with narrowing and os teophyte formation. There is surgical hardware in the lumbosacral spine. The soft tissues are unrem arkable. IMPRESSION: The no displaced fracture of the pelvis or hips is identified.
--- NOTE | 2024-04-07 14:35 | DI ---
EXAM: TWO VIEWS OF THE LEFT FEMUR HISTORY: Fall. COMPARISON: Pelvis x-ray same day FINDINGS: There is severe narrowing and osteophyte formation with sclerosis of the left hip joint spa ce. The left femur demonstrates no cortical irregularity or displaced fracture. Left knee arthropla sty hardware is present. Soft tissues are normal. IMPRESSION: Severe degenerative disease of the left hip.
[2024-04-07 15:09] LABS: SARS COV-2 RNA RAPID NAAT NEGATIVE (NEGATIVE)
[2024-04-07] MEDS: BUMEX IVP ONE (16:04)
[2024-04-07] MEDS: NORCO 7.5-325 PO ONE (16:15)
--- NOTE | 2024-04-07 16:30 | US ---
EXAM: LEFT LOWER EXTREMITY DEEP VENOUS ULTRASOUND WITH DOPPLER IMAGING HISTORY: Leg swelling TECHNIQUE: Blum-scale ultrasound with compression maneuvers and color and spectral Doppler ultrasound at rest and with augmentation of the veins was performed. Images were obtained and stored in a perm anent archive. COMPARISON: None FINDINGS: LEFT LOWER EXTREMITY: Common Femoral Vein: Normal compression. Normal flow on color Doppler images. Normal response to au gmentation. Deep Femoral Vein: Normal compression. Normal flow on color Doppler images. Normal response to aug mentation. Superficial Femoral Vein: Not visualized distally. Otherwise, normal compression and flow proximally and mid section. Popliteal Vein: Not visualized/identified. Peroneal Vein: Not visualized/identified. Posterior Tibial Vein: Normal compression. Normal flow on color Doppler images. Anterior Tibial Vein: Normal compression. Normal flow on color Doppler images. Greater Saphenous Vein (Superficial): Normal compression Other: Subcutaneous edema IMPRESSION: - No deep venous thrombosis in the left lower extremity noting nonvisualization of the some of the ve ins as above. - No superficial thrombophlebitis in the left lower extremity. - Subcutaneous edema. Repeat evaluation in 5-7 days advised if edema persists.
[2024-04-07] MEDS ORDERED: ZOFRAN 4 MG/2 ML IVP PRN (17:47)
[2024-04-07] MEDS ORDERED: VENTOLIN HFA IH PRN ×2 (17:50→20:36)
[2024-04-07] MEDS ORDERED: FLUZONE HIGH-DOSE TRIV 2024-25 IM ONE (18:14)
[2024-04-07 18:44] VITALS: BMI 54.4
[2024-04-07] MEDS: REQUIP PO SCH (20:57)
[2024-04-07] MEDS: ELIQUIS PO SCH (20:58)
[2024-04-07] MEDS: FLEXERIL PO SCH (20:58)
[2024-04-07] MEDS: LOPRESSOR PO SCH (20:59)
[2024-04-07] MEDS: NEURONTIN PO SCH (20:59)
[2024-04-07] MEDS: CRESTOR PO SCH (21:00)
[2024-04-07] MEDS: PEPCID PO SCH (21:00)
[2024-04-07] MEDS: COZAAR PO SCH (21:00)
[2024-04-07] MEDS: FLUZONE HIGH-DOSE TRIV 2024-25 IM ONE (21:36)
[2024-04-08] MEDS: BUMEX IVP SCH (05:06)
[2024-04-08] MEDS: PERCOCET 5-325 PO PRN (05:22)
[2024-04-08 05:51] LABS: BASOPHILS % (AUTO) 0.3 % (0.0-3.0); EOSINOPHILS # (AUTO) 0.3 K/ul (0.0-0.7); EOSINOPHILS % (AUTO) 3.9 % (0.0-7.0); HEMATOCRIT 32.3 % (37.0-47.0); HEMOGLOBIN 10.2 g/dl (12.0-16.0); IMMATURE GRANULOCYTE % (AUTO) 0.1 % (0.0-5.0); LYMPHOCYTES % (AUTO) 28.8 (10.0-50.0); MEAN CORPUSCULAR HEMOGLOBIN 29.7 pg (27.0-31.0); MEAN CORPUSCULAR HGB CONC 31.6 (31.8-35.4); MEAN CORPUSCULAR VOLUME 94.2 fl (81.0-99.0); MONOCYTES # (AUTO) 0.6 K/uL (0.4-2.0); MONOCYTES % (AUTO) 7.9 (0-10); NEUTROPHILS # (AUTO) 4.1 K/ul (2.0-6.9); PLATELET COUNT 142 10^3/uL (140-440); RDW COEFFICIENT OF VARIATION 14.8 % (11.6-14.8); RED BLOOD COUNT 3.43 10^6/ul (4.20-5.40); WHITE BLOOD COUNT 6.97 K/ul (4.6-10.2)
[2024-04-08 06:03] LABS: ALANINE AMINOTRANSFERASE 36.3 U/L (0-35); ALBUMIN 2.9 g/dL (3.5-5.0); ASPARTATE AMINO TRANSFERASE 34.1 U/L (14-36); BILIRUBIN,TOTAL 1.79 mg/dL (0.2-1.3); BLOOD UREA NITROGEN 21.5 mg/dL (7-17); CALCIUM 8.47 mg/dL (8.4-10.2); CARBON DIOXIDE 27.6 mmol/L (22-30.0); CHLORIDE 107.1 mmol/L (98-107); CREATININE 1.24 mg/dL (0.60-1.30); GLUCOSE 90.7 mg/dL (74-106); POTASSIUM 3.53 mmol/L (3.5-5.1); SODIUM 138.2 mmol/L (134.5-145); TOTAL PROTEIN 5.3 g/dL (6.3-8.2)
[2024-04-08] MEDS: VITAMIN D PO SCH (08:33)
[2024-04-08] MEDS: PRILOSEC PO SCH (08:33)
[2024-04-08] MEDS: SINGULAIR PO SCH (08:33)
[2024-04-08] MEDS ORDERED: LOPRESSOR PO SCH (09:00)
[2024-04-08] MEDS ORDERED: COZAAR PO SCH (09:00)
[2024-04-08] MEDS ORDERED: NEURONTIN PO SCH ×2 (09:00)
[2024-04-08] MEDS: NYSTOP POWDER TP SCH (09:37)
--- NOTE | 2024-04-08 12:06 | PCM ---
Date of Service Date Seen by Provider: 04/08/24 Time Seen by Provider: 09:00 Admit Day/Time Admission Date: 04/07/24 Admission Time: 16:38 Reason for Admission Chief Complaint: GENERALIZED WEAKNESS FALL W/ LLE CONTUSION, LYMPHE Hospital Provider Hospital Provider: CORDELIA ALVARADO PA-C, [facility] Primary Care Physician Primary Care Physician: NICOLA NYE History of Present Illness History of Present Illness: Patient is a 63 year old female from home with pmhx of lymphedema, recurrent cellulitis, anxiety, bipolar disorder, COPD, who presented to the ER for a fall and unable to ambulate. Patient has had multiple hospitalizations this year. States she was in a retirement for 3 months, and has since been home for about 6 weeks. States she was "doing good" and could walk about 8 steps. She relies on her scooter to get around. She had a fall the night prior to coming to the ER. Required lift assist from EMS but did not feel she needed to come to ER. However yesterday she couldn't ambulate. She states she's gained a significant amount of weight due to swelling and worsening lymphedema. She is unable to perform her ADLs. Has pain in her legs. X rays in ER negative. BNP elevated. Had an US of LLE without DVT. She was given bumex. Admitted to [facility]. Case Discussed With Case Discussed With: Patient's case was discussed with the ER Physicians, Dr. Morrison. 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 Q85.89 - Other phakomatoses, not elsewhere classified (ICD-10) COPD (chronic obstructive pulmonary disease) J44.9 - Chronic obstructive pulmonary disease, unspecified (ICD-10) Hypertension I10 - Essential (primary) hypertension (ICD-10) Normal menstrual period Back pain M54.9 - Dorsalgia, unspecified (ICD-10) Convulsions medical marijuanas in a cream she rubs on her body. Hasn't had a seizure in 4 years due to the marijuana. R56.9 - Unspecified convulsions (ICD-10) Leg pain M79.606 - Pain in leg, unspecified (ICD-10) Surgical History History of appendectomy Z90.49 - Acquired absence of other specified parts of digestive tract (ICD- 10) H/O knee surgery left side then right side. Right side wouldn't heal and had another knee placed on the right side. Z98.890 - Other specified postprocedural states (ICD-10) History of cholecystectomy 1994 Z90.49 - Acquired absence of other specified parts of digestive tract (ICD- 10) History of partial mastectomy of both breasts 1990 Z90.13 - Acquired absence of bilateral breasts and nipples (ICD-10) Gastric bypass status for obesity 1988 Z98.84 - Bariatric surgery status (ICD-10) Previous back surgery fusion L4 and L5 Z98.890 - Other specified postprocedural states (ICD-10) Family History Mother Hypertension FATHER Cirrhosis of liver Alcohol abuse BROTHER Depression Social History Smoking and tobacco status: Current every day smoker Tobacco type: cigarettes Smoking packs per day: 1 Smoking cigarettes per day: 20.0 Years smoked: 55 Quit status: considering quitting Alcohol intake: never Substance use type: other Details: pt makes a pain cream, has a medical marijuana card Gina/latter day: NONE Special gina needs: No Agree to transfusion: Yes Adopted: No Caregiver/support person: No Household members: none Housing: other Marital status: D Lives independently: Yes Number of children: 1 Number of grandchildren: 0 Highest education level completed: high school graduate Financial difficulty paying for basics: somewhat hard service: No Current occupational status: disabled Pets and animals: Yes (3 dogs) History of recent travel: No Current gender identity: female Water heater temperature set < 120 degrees: Yes Working smoke detector in home: Yes Fire extinguisher in home: Yes Carbon monoxide detector in home: Yes Firearms in home: No Allergies Allergies Allergy/AdvReac Type Severity Reaction Status Date / Time ciprofloxacin (From Cipro) AdvReac Verified 04/07/24 13:21 furosemide (From Lasix) AdvReac Verified 04/07/24 13:21 Current Medications Home Medications ropinirole 5 mg tablet (Requip) 5 mg PO BID 06/11/13 [History Confirmed 04/07/24 Last Taken 04/07/24 08:00] montelukast 10 mg tablet 10 mg PO DAILY 04/11/17 [History Confirmed 04/07/24 Last Taken 04/07/24] albuterol sulfate 90 mcg/actuation aerosol inhaler 2 puff inhalation Q4-6H PRN SHORTNESS OF AIR 09/22/21 [History Confirmed 04/07/24 Last Taken 04/06/24] alprazolam 1 mg tablet 1 mg PO TID PRN Anxiety 06/12/22 [History Confirmed 04/07/24 Last Taken Unknown] cetirizine 10 mg tablet (Allergy Relief (cetirizine)) 10 mg PO DAILY 06/12/22 [History Confirmed 04/07/24 Last Taken 04/07/24 08:00] cyclobenzaprine 5 mg tablet 5 mg PO TID 06/12/22 [History Confirmed 04/07/24 Last Taken 04/06/24] famotidine 20 mg tablet 20 mg PO BID 06/12/22 [History Confirmed 04/07/24 Last Taken 04/07/24 08:00] omeprazole 40 mg capsule,delayed release 40 mg PO DAILY 06/14/22 [History Confirmed 04/07/24 Last Taken 04/07/24] rosuvastatin 5 mg tablet 5 mg PO BEDTIME 11/23/22 [History Confirmed 04/07/24 Last Taken 04/06/24] cholecalciferol (vitamin D3) 25 mcg (1,000 unit) capsule (Vitamin D3) 25 mcg PO DAILY 06/04/23 [History Confirmed 04/07/24 Last Taken 04/07/24 08:00] metoprolol tartrate 25 mg tablet 25 mg PO .nightly 06/04/23 [History Confirmed 04/07/24 Last Taken 04/06/24] apixaban 5 mg tablet (Eliquis) 5 mg PO BID 11/08/23 [History Confirmed 04/07/24 Last Taken 04/07/24 08:00] torsemide 20 mg tablet See Rx Instructions PO QAM PRN swelling 11/08/23 [History Confirmed 04/07/24 Last Taken 04/06/24 11:00] cyanocobalamin (vitamin B-12) 1 tab PO DAILY 04/07/24 [History Confirmed 04/07/24 Last Taken 04/07/24 08:00] gabapentin 300 mg capsule 300 mg PO .nightly 04/07/24 [History Confirmed 04/07/24 Last Taken 04/06/24] losartan 25 mg tablet 25 mg PO .nightly 04/07/24 [History Confirmed 04/07/24 Last Taken 04/06/24] oxycodone-acetaminophen 5 mg-325 mg tablet 1 tab PO 3XD PRN pain 04/07/24 [History Confirmed 04/07/24 Last Taken 04/07/24] Home Acetaminophen (Acetaminophen 325 Mg Tablet) 650 mg PO Q4H PRN PRN Reason: Mild Pain Albuterol Sulfate (Albuterol Sulfate 8 Gm Inhaler) 2 puff IH Q4H PRN PRN Reason: sob Alprazolam (Alprazolam 0.5 Mg Tablet) 1 mg PO TID PRN PRN Reason: Anxiety Apixaban (Apixaban 5 Mg Tab) 5 mg PO BID [facility] Last Admin: 04/08/24 08:33 Dose: 5 mg Bumetanide (Bumetanide 1 Mg/4 Ml Vial) 1 mg IVP Q12H [facility] Last Admin: 04/08/24 05:06 Dose: 1 mg Cholecalciferol (Cholecalciferol (Vitamin D3) 1,000 Unit (25 Mcg) Tablet) 1,000 unit PO DAILY [facility] Last Admin: 04/08/24 08:33 Dose: 1,000 unit Cyclobenzaprine HCl (Cyclobenzaprine Hcl 10 Mg Tablet) 5 mg PO TID [facility] Last Admin: 04/08/24 14:39 Dose: 5 mg Famotidine (Famotidine 20 Mg Tablet) 20 mg PO BID [facility] Last Admin: 04/08/24 09:36 Dose: 20 mg Gabapentin (Gabapentin 300 Mg Capsule) 300 mg PO BEDTIME [facility] Last Admin: 04/07/24 20:59 Dose: 300 mg Losartan Potassium (Losartan Potassium 25 Mg Tablet) 25 mg PO BEDTIME [facility] Last Admin: 04/07/24 21:00 Dose: 25 mg Metoprolol Tartrate (Metoprolol Tartrate 25 Mg Tablet) 25 mg PO BEDTIME [facility] Last Admin: 04/07/24 20:59 Dose: 25 mg Montelukast Sodium (Montelukast Sodium 10 Mg Tablet) 10 mg PO DAILY [facility] Last Admin: 04/08/24 08:33 Dose: 10 mg Nystatin (Nystatin 15 Gm Powder) 1 applic TP BID [facility] Last Admin: 04/08/24 09:37 Dose: 1 applic Omeprazole (Omeprazole 20 Mg Capsule.) 40 mg PO QDAC2 [facility] Ondansetron HCl (Ondansetron Hcl/Pf 4 Mg/2 Ml Sdv) 4 mg IVP Q6H PRN PRN Reason: Nausea / Vomiting Oxycodone/Acetaminophen (Oxycodone/Acetaminophen 5/325 Mg Tablet) 1 tab PO 3XD PRN PRN Reason: MODERATE PAIN Last Admin: 04/08/24 05:22 Dose: 1 tab Ropinirole HCl (Ropinirole Hcl 1 Mg Tablet) 5 mg PO BID [facility] Last Admin: 04/08/24 08:40 Dose: Not Given Rosuvastatin Calcium (Rosuvastatin Calcium 10 Mg Tablet) 5 mg PO BEDTIME [facility] Last Admin: 04/07/24 21:00 Dose: 5 mg Sodium Chloride (0.9% Sodium Chloride 10 Ml Disp.Syrin) 1 syr IVF PRN PRN PRN Reason: To flush IV Last Admin: 04/08/24 13:16 Dose: 1 syr Discontinued Medications Hydrocodone Bitart/Acetaminophen (Hydrocodone Bit/Acetaminophen 7.5/325 Mg Tablet) 1 tab PO ONCE ONE Stop: 04/07/24 16:10 Last Admin: 04/07/24 16:15 Dose: 1 tab Albuterol Sulfate (Albuterol Sulfate 8 Gm Inhaler) 2 puff IH Q4-6H PRN PRN Reason: sob Bumetanide (Bumetanide 1 Mg/4 Ml Vial) 1 mg IVP ONCE ONE Stop: 04/07/24 15:26 Last Admin: 04/07/24 16:04 Dose: 1 mg Gabapentin (Gabapentin 300 Mg Capsule) 300 mg PO DAILY [facility] Losartan Potassium (Losartan Potassium 25 Mg Tablet) 25 mg PO DAILY [facility] Metoprolol Tartrate (Metoprolol Tartrate 25 Mg Tablet) 25 mg PO DAILY [facility] Omeprazole (Omeprazole 20 Mg Capsule.) 40 mg PO DAILY [facility] Last Admin: 04/08/24 08:33 Dose: 40 mg Opioid Naive vs. Tolerant Does Patient Take Opioids?: No Is Patient Opioid Naive?: Yes What is Opioid Naive?: *Opioid Naive implies the patient is not already taking opioids or not chronically receiving opioids on a daily basis. *PRN dosing is not "usually" associated with tolerance. *Patients are at higher risk of over-sedation and aspiration. Is Patient Opioid Tolerant?: No What is Opioid Tolerant?: *Opioid Tolerance implies less than the expected response to an opioid. *Acquired tolerance is defined by the patient taking 60mg of oral morphine daily (or equianalgesic dose of another opioid) for 1 week or more. *Often associated with chronic pain. *May take more than usual dose to achieve desired pain control. Review of Systems Constitutional: Reports Fatigue and Weakness; Denies Fever Head: Reports Normocephalic and Atraumatic Cardiovascular: Reports Edema; Denies Chest pain or Chest Pressure Respiratory: Denies Cough or Shortness of air Gastrointestinal: Denies Nausea, Vomiting, Diarrhea or Abdominal pain Genitourinary: Denies Dysuria or Frequency Dermatologic: Reports Skin Changes (+chronic, lower ext chetna ) Neurological: Reports Weakness and Problems with walking Physical examination Most Recent Vital Signs: Most Recent Vital Signs Temperature 98.3 F 04/08/24 10:00 Temperature Source Temporal Artery Scan 04/08/24 10:00 Temperature Source Temporal Artery Scan 04/07/24 13:13 Pulse Rate 87 04/08/24 10:00 Respiratory Rate 20 04/08/24 10:00 Blood Pressure 99/56 L 04/08/24 10:00 Blood Pressure Mean 70 04/08/24 10:00 Blood Pressure Left Arm 134/60 04/07/24 18:08 Blood Pressure Location Right Arm 04/08/24 10:00 Blood Pressure Position Supine 04/08/24 10:00 O2 Sat by Pulse Oximetry 96 04/08/24 10:00 Oxygen Delivery Method Room Air 04/08/24 10:00 Height 5 ft 8 in 04/07/24 18:08 Weight 162.5 kg 04/07/24 18:08 Telemetry Heart Rate 114 H 08/19/16 19:00 Telemetry SPO2 84 L 08/18/16 07:00 Appearance: Positive No Apparent Distress, Alert and Oriented x3 and Obese Skin: Positive Dooms, Warm and Good Turgor HEENT: Positive Normocephalic and Atraumatic Neck: Positive Supple and Midline Trachea Chest/Lungs: Positive Clear to Auscultation Bilaterally; Negative Rales, Rhonci or Wheezes Heart: Positive RRR GI/: Positive Soft, Nontender, Bowel Sounds Normal and No Distention Extremities: Positive Edema Neurological: Positive Cranial Nerves Intact, Alert and Other (+generalized weakness ) Psychiatric: Positive Oriented x4, Appropriate Mood and Appropriate Affect Additional Findings: +significant edema of lower extremities, worsened than baseline, generalized erythema to both lower ext, no open draining wounds, skin changes consistent with chronic venous stasis noted. Labs This Visit Labs This Visit: Labs This Visit 04/07/24 04/07/24 04/08/24 13:47 14:40 05:23 WBC 7.80 RBC 3.95 L Hgb 11.7 L Hct 37.4 MCV 94.7 MCH 29.6 MCHC 31.3 L RDW Coeff of Awilda 14.9 H Plt Count 145 Immature Gran % (Auto) 0.4 Neut % (Auto) 65.2 Lymph % (Auto) 24.6 Erath % (Auto) 6.5 Eos % (Auto) 2.9 Baso % (Auto) 0.4 Neut # (Auto) 5.1 Lymph # (Auto) 1.9 [place]ath # (Auto) 0.5 Eos # (Auto) 0.2 Baso # (Auto) 0.0 Immature Gran # (Auto) 0.0 Sodium 137.0 138.2 Potassium 4.00 3.53 Chloride 105.1 107.1 H Carbon Dioxide 29.7 27.6 Anion Gap 6.20 7.03 BUN 24.4 H 21.5 H Creatinine 1.32 H 1.24 Estimated GFR (MDRD) 41.00 44.00 BUN/Creatinine Ratio 18.48 17.33 Glucose 104.4 90.7 Calcium 9.05 8.47 Total Bilirubin 1.68 H 1.79 H AST 43.4 H 34.1 ALT 52.5 H 36.3 H Alkaline Phosphatase 95.0 77.0 NT-Pro-B Natriuret Pep 2300 H Total Protein 6.18 L 5.30 L Albumin 3.61 2.90 L Globulin 2.57 2.40 Albumin/Globulin Ratio 1.40 1.20 SARS CoV-2 RNA Rapid KHUSHI Negative 04/08/24 05:50 WBC 6.97 RBC 3.43 L Hgb 10.2 L Hct 32.3 L MCV 94.2 MCH 29.7 MCHC 31.6 L RDW Coeff of Awilda 14.8 Plt Count 142 Immature Gran % (Auto) 0.1 Neut % (Auto) 59.0 Lymph % (Auto) 28.8 [place] % (Auto) 7.9 Eos % (Auto) 3.9 Baso % (Auto) 0.3 Neut # (Auto) 4.1 Lymph # (Auto) 2.0 [place]ath # (Auto) 0.6 Eos # (Auto) 0.3 Baso # (Auto) 0.0 Immature Gran # (Auto) 0.0 Sodium Potassium Chloride Carbon Dioxide Anion Gap BUN Creatinine Estimated GFR (MDRD) BUN/Creatinine Ratio Glucose Calcium Total Bilirubin AST ALT Alkaline Phosphatase NT-Pro-B Natriuret Pep Total Protein Albumin Globulin Albumin/Globulin Ratio SARS CoV-2 RNA Rapid KHUSHI Imaging Imaging: EXAM: LEFT LOWER EXTREMITY DEEP VENOUS ULTRASOUND WITH DOPPLER IMAGING HISTORY: Leg swelling TECHNIQUE: Blum-scale ultrasound with compression maneuvers and color and spectral Doppler ultrasound at rest and with augmentation of the veins was performed. Images were obtained and stored in a permanent archive. COMPARISON: None FINDINGS: LEFT LOWER EXTREMITY: Common Femoral Vein: Normal compression. Normal flow on color Doppler images. Normal response to augmentation. Deep Femoral Vein: Normal compression. Normal flow on color Doppler images. Normal response to augmentation. Superficial Femoral Vein: Not visualized distally. Otherwise, normal compression and flow proximally and mid section. Popliteal Vein: Not visualized/identified. Peroneal Vein: Not visualized/identified. Posterior Tibial Vein: Normal compression. Normal flow on color Doppler images. Anterior Tibial Vein: Normal compression. Normal flow on color Doppler images. Greater Saphenous Vein (Superficial): Normal compression Other: Subcutaneous edema IMPRESSION: - No deep venous thrombosis in the left lower extremity noting nonvisualization of the some of the veins as above. - No superficial thrombophlebitis in the left lower extremity. - Subcutaneous edema. Repeat evaluation in 5-7 days advised if edema persists. EXAM: LEFT TIBIA-FIBULA TWO-VIEW HISTORY: Fall. COMPARISON: CT of the left tibia and fibula from 10/02/2023. FINDINGS: see impression. IMPRESSION: Generalized osteopenia. This limits evaluation for subtle, nondisplaced fractures. There is a questionable cortical step off in the proximal fibula. However, this is only seen on the lateral view and may be projectional. Degenerative changes to the ankle and foot. Left knee arthroplasty. Soft tissue edema about the lower leg, ankle and foot. If symptoms persist, or if there is clinical concern for occult injury, recommend follow-up MRI examination. EXAM: SINGLE VIEW OF THE PELVIS HISTORY: Fall. COMPARISON: The left femoral x-rays same day FINDINGS: Pelvic ring is intact. There is degenerative disease of the left hip with narrowing and osteophyte formation. There is surgical hardware in the lumbosacral spine. The soft tissues are unremarkable. IMPRESSION: The no displaced fracture of the pelvis or hips is identified. EXAM: TWO VIEWS OF THE LEFT FEMUR HISTORY: Fall. COMPARISON: Pelvis x-ray same day FINDINGS: There is severe narrowing and osteophyte formation with sclerosis of the left hip joint space. The left femur demonstrates no cortical irregularity or displaced fracture. Left knee arthroplasty hardware is present. Soft tissues are normal. IMPRESSION: Severe degenerative disease of the left hip. Review Statement Review Statement: I have independently reviewed and interpreted the labs/EKGs/imaging that were ordered by the ER provider. I have reviewed all outside records that are available currently in our EMR including imaging/notes/labs from previous visits. Plan Plan: 1. Bilateral lymphedema, worsened - Unable to perform ADLs, has gained 30+ lbs, fall risk. Will diurese with bumex 1 mg bid, monitor I&Os, fluid restriction. Daily weights. PTOT. 2. Elevated BNP - Check echo 3. Hx of DVT - Cont eliquis 4. Hypertension - Cont home meds 5. Hyperlipidemia - Cont home meds Patient is currently not safe to go home with current medical condition. She is a huge fall risk. She is unable to perform her ADLs due to the amount of fluid she is retaining, at least 30+lbs up from her baseline. She will require at least two midnights of treatment including diuresis, monitoring I&Os, monitoring renal function closely, and working with therapy to develop a safe discharge plan. High risk of readmission. DVT Prophylaxis: Eliquis Time Spent: Greater than 80 minutes spent with patient, 50% of the time spent with this patient was devoted to counseling and coordination of care. [facility]annin minutes spent discussing advance care planning. Admit to: Made inpatient today Discussed Plan of Care with Dr. Fredy Ballard. Medications Medication Orders: Medications Ordered Category Date Time Status 0.9 % Sodium Chloride [Saline Flush] Meds 04/07/24 13:25 Active 1 syr IVF PRN PRN Acetaminophen [Tylenol] Meds 04/07/24 17:47 Active 650 mg PO Q4H PRN Albuterol Sulfate [Ventolin Hfa] Meds 04/07/24 20:36 Active 2 puff IH Q4H PRN Alprazolam [Xanax] Meds 04/07/24 17:50 Active 1 mg PO TID PRN Apixaban [Eliquis] Meds 04/07/24 21:00 Active 5 mg PO BID Bumetanide [Bumex] Meds 04/08/24 04:00 Active 1 mg IVP Q12H Cholecalciferol (Vitamin D3) [Vitamin D] Meds 04/08/24 09:00 Active 1,000 unit PO DAILY Cyclobenzaprine HCl [Flexeril] Meds 04/07/24 21:00 Active 5 mg PO TID Famotidine [Pepcid] Meds 04/07/24 21:00 Active 20 mg PO BID Gabapentin [Neurontin] Meds 04/07/24 21:00 Active 300 mg PO BEDTIME Losartan Potassium [Cozaar] Meds 04/07/24 21:00 Active 25 mg PO BEDTIME Metoprolol Tartrate [Lopressor] Meds 04/07/24 21:00 Active 25 mg PO BEDTIME Montelukast Sodium [Singulair] Meds 04/08/24 09:00 Active 10 mg PO DAILY Nystatin [Nystop Powder] Meds 04/08/24 09:30 Active 1 applic TP BID Omeprazole [Prilosec] Meds 04/09/24 06:00 Active 40 mg PO QDAC2 Ondansetron HCl/Pf [Zofran 4 mg/2 ml] Meds 04/07/24 17:47 Active 4 mg IVP Q6H PRN Oxycodone-Acetaminophen [Percocet 5-325] Meds 04/07/24 17:50 Active 1 tab PO 3XD PRN Ropinirole HCl [Requip] Meds 04/07/24 21:00 Active 5 mg PO BID Rosuvastatin Calcium [Crestor] Meds 04/07/24 21:00 Active 5 mg PO BEDTIME
[2024-04-08] MEDS: PERCOCET 7.5-325 PO PRN (16:08)
[2024-04-08] MEDS: TYLENOL PO PRN (20:38)
[2024-04-09] MEDS: PRILOSEC PO SCH (05:00)
[2024-04-09 05:37] LABS: BASOPHILS % (AUTO) 0.2 % (0.0-3.0); EOSINOPHILS # (AUTO) 0.2 K/ul (0.0-0.7); EOSINOPHILS % (AUTO) 3.8 % (0.0-7.0); HEMATOCRIT 31.7 % (37.0-47.0); HEMOGLOBIN 9.9 g/dl (12.0-16.0); IMMATURE GRANULOCYTE % (AUTO) 0.2 % (0.0-5.0); LYMPHOCYTES # (AUTO) 1.9 K/uL (0.60-3.4); LYMPHOCYTES % (AUTO) 31.8 (10.0-50.0); MEAN CORPUSCULAR HEMOGLOBIN 30.1 pg (27.0-31.0); MEAN CORPUSCULAR HGB CONC 31.2 (31.8-35.4); MEAN CORPUSCULAR VOLUME 96.4 fl (81.0-99.0); MONOCYTES # (AUTO) 0.5 K/uL (0.4-2.0); MONOCYTES % (AUTO) 7.8 (0-10); NEUTROPHILS # (AUTO) 3.4 K/ul (2.0-6.9); NEUTROPHILS % (AUTO) 56.2 % (42.2-75.2); PLATELET COUNT 137 10^3/uL (140-440); RDW COEFFICIENT OF VARIATION 14.6 % (11.6-14.8); RED BLOOD COUNT 3.29 10^6/ul (4.20-5.40)
[2024-04-09 05:47] LABS: ALANINE AMINOTRANSFERASE 28.3 U/L (0-35); ALBUMIN 2.64 g/dL (3.5-5.0); ALKALINE PHOSPHATASE 78.3 U/L (53-141); BILIRUBIN,TOTAL 1.37 mg/dL (0.2-1.3); BLOOD UREA NITROGEN 19.6 mg/dL (7-17); CALCIUM 8.23 mg/dL (8.4-10.2); CARBON DIOXIDE 31.2 mmol/L (22-30.0); CREATININE 1.18 mg/dL (0.60-1.30); GLUCOSE 104.4 mg/dL (74-106); POTASSIUM 3.33 mmol/L (3.5-5.1); SODIUM 139.2 mmol/L (134.5-145); TOTAL PROTEIN 4.99 g/dL (6.3-8.2)
[2024-04-09] MEDS: K-DUR PO ONE (08:47)
--- NOTE | 2024-04-09 09:50 | PCM.PROG ---
Date/Time Seen Date Seen by Provider: 04/09/24 Time Seen by Provider: 08:30 Provider Provider: CORDELIA ALVARADO [facility] Chief Complaint Chief Complaint: GENERALIZED WEAKNESS FALL W/ LLE CONTUSION, LYMPHE Subjective Subjective: Patient feels her swelling is improved. She has pain in both of her legs. She is hoping to work with therapy today. She has had about 9L out. Objective Appearance: Positive No Apparent Distress, Alert and Oriented x3 and Obese Chest/Lungs: Positive Clear to Auscultation Bilaterally; Negative Rales, Rhonci or Wheezes Heart: Positive RRR GI/: Positive Soft, Nontender, Bowel Sounds Normal and No Distention Neurological: Positive Cranial Nerves Intact, Alert, Oriented and Other (+generalized weakness ) Additional Findings: lymphedema ble, significant swelling, generalized erythema of both legs, no open wounds. Vital Signs Vital Signs: Vital Signs: Last 24 Hours 04/08/24 10:00 04/08/24 10:00 04/08/24 14:00 Temperature 98.3 F 96.8 F L Temperature Source Temporal Artery Scan Temporal Artery Scan Pulse Rate 87 90 Respiratory Rate 20 24 H Blood Pressure 99/56 L 91/62 Blood Pressure Mean 70 71 Blood Pressure Location Right Arm Left Arm Blood Pressure Position Supine Supine O2 Sat by Pulse Oximetry 96 99 Oxygen Delivery Method Room Air Room Air Room Air Telemetry Type Telemetry Monitoring Irregular Telemetry Rate (Approximate) Telemetry Heart Rate EKG QRS Interval Telemetry Strip Reading 04/08/24 16:45 04/08/24 17:52 04/08/24 19:00 Temperature 98.8 F Temperature Source Temporal Artery Scan Pulse Rate 106 H Respiratory Rate 24 H Blood Pressure 94/52 L Blood Pressure Mean 66 Blood Pressure Location Right Arm Blood Pressure Position Supine O2 Sat by Pulse Oximetry 93 L Oxygen Delivery Method Room Air Telemetry Type Remote Telemetry Remote Telemetry Telemetry Monitoring Started Continues Irregular Telemetry Rate (Approximate) 100-110 BPM 90-100 BPM Telemetry Heart Rate 107 H EKG QRS Interval 0.08 0.07 Telemetry Strip Reading Atrial Fib with RVR Atrial Fib 04/08/24 20:00 04/08/24 20:00 04/08/24 21:56 Temperature 98.5 F 98.8 F Temperature Source Temporal Artery Scan Temporal Artery Scan Pulse Rate 98 107 H Respiratory Rate 19 19 Blood Pressure 94/44 L 91/49 L Blood Pressure Mean 60 63 Blood Pressure Location Right Arm Left Arm Blood Pressure Position Supine Supine O2 Sat by Pulse Oximetry 95 95 Oxygen Delivery Method Room Air Room Air Room Air Telemetry Type Telemetry Monitoring Irregular Telemetry Rate (Approximate) Telemetry Heart Rate EKG QRS Interval Telemetry Strip Reading 04/08/24 23:53 04/09/24 01:00 04/09/24 01:48 Temperature 98 F 96.7 F L Temperature Source Temporal Artery Scan Temporal Artery Scan Pulse Rate 108 H 101 H Respiratory Rate 19 19 Blood Pressure 95/60 105/61 Blood Pressure Mean 71 75 Blood Pressure Location Left Arm Left Arm Blood Pressure Position Supine Supine O2 Sat by Pulse Oximetry 95 94 L Oxygen Delivery Method Room Air Room Air Telemetry Type Remote Telemetry Telemetry Monitoring Continues Irregular Telemetry Rate (Approximate) 100-110 BPM Telemetry Heart Rate EKG QRS Interval 0.08 Telemetry Strip Reading Atrial Fib 04/09/24 03:44 04/09/24 05:20 04/09/24 07:00 Temperature 97.6 F 96.9 F L Temperature Source Temporal Artery Scan Temporal Artery Scan Pulse Rate 103 H 88 Respiratory Rate 19 19 Blood Pressure 103/60 95/38 L Blood Pressure Mean 74 57 Blood Pressure Location Right Arm Right Arm Blood Pressure Position Supine Supine O2 Sat by Pulse Oximetry 94 L 95 Oxygen Delivery Method Room Air Room Air Telemetry Type Remote Telemetry Telemetry Monitoring Continues Irregular Telemetry Rate (Approximate) Telemetry Heart Rate EKG QRS Interval 0.06 Telemetry Strip Reading afib 04/09/24 07:52 Temperature 96.9 F L Temperature Source Temporal Artery Scan Pulse Rate 97 Respiratory Rate 16 Blood Pressure 113/72 Blood Pressure Mean 85 Blood Pressure Location Right Arm Blood Pressure Position Supine O2 Sat by Pulse Oximetry 99 Oxygen Delivery Method Room Air Telemetry Type Telemetry Monitoring Irregular Telemetry Rate (Approximate) Telemetry Heart Rate EKG QRS Interval Telemetry Strip Reading Lab Results Lab Results: Lab Results: Last 24 Hours 04/09/24 05:30 WBC 6.00 RBC 3.29 L Hgb 9.9 L Hct 31.7 L MCV 96.4 MCH 30.1 MCHC 31.2 L RDW Coeff of Awilda 14.6 Plt Count 137 L Immature Gran % (Auto) 0.2 Neut % (Auto) 56.2 Lymph % (Auto) 31.8 [place] % (Auto) 7.8 Eos % (Auto) 3.8 Baso % (Auto) 0.2 Neut # (Auto) 3.4 Lymph # (Auto) 1.9 [place] # (Auto) 0.5 Eos # (Auto) 0.2 Baso # (Auto) 0.0 Immature Gran # (Auto) 0.0 Sodium 139.2 Potassium 3.33 L Chloride 107.0 Carbon Dioxide 31.2 H Anion Gap 4.33 BUN 19.6 H Creatinine 1.18 Estimated GFR (MDRD) 46.00 BUN/Creatinine Ratio 16.61 Glucose 104.4 Calcium 8.23 L Total Bilirubin 1.37 H AST 33.0 ALT 28.3 Alkaline Phosphatase 78.3 Total Protein 4.99 L Albumin 2.64 L Globulin 2.35 Albumin/Globulin Ratio 1.12 Additional Comments Additional Comments: I have independently reviewed and interpreted the labs/EKGs/imaging ordered during this hospital stay. I have reviewed outside records that are available in our EMR that pertain to medical stay including imaging/notes/labs from previous visits. Active Medications Active Medications: Medications Generic Name Dose Route Start Last Admin Trade Name Freq PRN Reason Stop Dose Admin Acetaminophen 650 mg 04/07/24 17:47 04/08/24 20:38 Acetaminophen 325 Mg Tablet PO 650 mg Q4H PRN Administration Mild Pain Albuterol Sulfate 2 puff 04/07/24 20:36 Albuterol Sulfate 8 Gm Inhaler IH Q4H PRN sob Alprazolam 1 mg 04/07/24 17:50 Alprazolam 0.5 Mg Tablet PO TID PRN Anxiety Apixaban 5 mg 04/07/24 21:00 04/09/24 08:46 Apixaban 5 Mg Tab PO 5 mg BID MARCELINO Administration Bumetanide 1 mg 04/08/24 04:00 04/09/24 05:00 Bumetanide 1 Mg/4 Ml Vial IVP 1 mg Q12H MARCELINO Administration Cholecalciferol 1,000 unit 04/08/24 09:00 04/09/24 08:46 Cholecalciferol (Vitamin D3) 1,000 Unit (25 Mcg) Tablet PO 1,000 unit DAILY MARCELINO Administration Cyclobenzaprine HCl 5 mg 04/07/24 21:00 04/09/24 08:47 Cyclobenzaprine Hcl 10 Mg Tablet PO 5 mg TID MARCELINO Administration Famotidine 20 mg 04/07/24 21:00 04/09/24 08:47 Famotidine 20 Mg Tablet PO 20 mg BID MARCELINO Administration Gabapentin 300 mg 04/07/24 21:00 04/08/24 20:27 Gabapentin 300 Mg Capsule PO 300 mg BEDTIME MARCELINO Administration Losartan Potassium 25 mg 04/07/24 21:00 04/08/24 20:36 Losartan Potassium 25 Mg Tablet PO Not Given BEDTIME MARCELINO Metoprolol Tartrate 25 mg 04/07/24 21:00 04/08/24 20:36 Metoprolol Tartrate 25 Mg Tablet PO Not Given BEDTIME MARCELINO Montelukast Sodium 10 mg 04/08/24 09:00 04/09/24 08:47 Montelukast Sodium 10 Mg Tablet PO 10 mg DAILY MARCELINO Administration Nystatin 1 applic 04/08/24 09:30 04/08/24 20:35 Nystatin 15 Gm Powder TP 1 applic BID MARCELINO Administration Omeprazole 40 mg 04/09/24 06:00 04/09/24 05:00 Omeprazole 20 Mg Capsule.Dr PO 40 mg QDAC2 MARCELINO Administration Ondansetron HCl 4 mg 04/07/24 17:47 Ondansetron Hcl/Pf 4 Mg/2 Ml Sdv IVP Q6H PRN Nausea / Vomiting Oxycodone/Acetaminophen 1 tab 04/08/24 14:56 04/09/24 08:46 Oxycodone/Acetaminophen 7.5/325 Mg Tablet PO 1 tab Q8H PRN Administration MODERATE PAIN Ropinirole HCl 5 mg 04/07/24 21:00 04/09/24 08:48 Ropinirole Hcl 1 Mg Tablet PO Not Given BID [facility] Rosuvastatin Calcium 5 mg 04/07/24 21:00 04/08/24 20:26 Rosuvastatin Calcium 10 Mg Tablet PO 5 mg BEDTIME MARCELINO Administration Sodium Chloride 1 syr 04/07/24 13:25 04/09/24 05:00 0.9% Sodium Chloride 10 Ml Disp.Syrin IVF 1 syr PRN PRN Administration To flush IV Plan Plan: 1. Bilateral lymphedema, worsened - Unable to perform ADLs, has gained 30+ lbs, fall risk. Will continue to diurese with bumex 1 mg bid, monitor I&Os, fluid restriction. Daily weights. PTOT. 2. Elevated BNP - Check echo 3. Hx of DVT - Cont eliquis 4. Hypertension - BP has been soft, hold bp meds 5. Hyperlipidemia - Cont home meds Patient is currently not safe to go home with current medical condition. She is a huge fall risk. She is unable to perform her ADLs due to the amount of fluid she is retaining, at least 30+lbs up from her baseline. She will require at least two midnights of treatment including diuresis, monitoring I&Os, monitoring renal function closely, and working with therapy to develop a safe discharge plan. High risk of readmission. DVT Prophylaxis: Eliquis Review Statement Review Statement: I have personally discussed and reviewed the patient's visit/currently labs/imaging/decision making with Dr. Ballard, my supervising attending. Greater that 50 minutes spent with patient, 50% of the time spent with this patient was devoted to counseling and coordination of care.
--- NOTE | 2024-04-09 11:20 | RS.PTINEVL ---
Subjective Patient information Date of Evaluation: 04/09/24 Date of Arrival on Unit: 04/07/24 Admitted From:: Home Diagnosis: fall, weakness, lymphedema, CHF Usual Living Arrangement: Alone Living Arrangement Comments: pt lives alone has worker for 3 hours 5 days a week. Home Environment: Mobile Home [facility] [place] Medical History: Hypertension, COPD, CHF, Arthritis and Cancer (breast ) Medical History Comments:: anxiety, bipolar disorder, Sturge-Schmid disease, recurrent cellulitis, lymphedema LATEX ALLERGY?: No Surgical History: Knee Replacement (bilateral), Lumbar Spine, Cholecystectomy and Mastectomy (partial bilateral mastectomy) Surgical History Comments:: appey, gastric bypass Medications: see chart Subjective Information/ Patient Comments:: pt states that she is willing to try to work with PT today. States that she wants to do as much for herself as she can. pt states that she has put out 9 liters of fluid with diuretics. Level of function Prior to this admission, the patient could do the following:: Independent Selfcare and Independent ADL's Abilities prior to this admission: pt reports she was able to walk approx. 8 steps while at retirement. pt was at retirement approx. 3 mo and has been home 6 weeks. pt states she feels she has lost strength since being home from retirement. Her worker helps with sponge bath, and other ADL's 5 days a week. Current Level of Function: Partially Dependent Current Equipment Used at Home: power chair, Rollator, Wheeled Walker, BSC, Shower bench. Pain Assessement Location bilateral LE's : Description: Burning, Tightness and Sharp Pain Behavior: Crying, Withdrawal from Touch, Rubbing Site and Facial Grimacing Pain Aggravating Factors: ADL's, Changing Position and Exercise/Activity Pain Alleviating Factors: Medication Effects of Pain: pt reports pain is constant and worse with palpation Interventions Objective Patient Orientation: Person, Place and Time Observation: pt with lymphedema BLE with redness and warmth BLE. pt's edema does appear to have decreased due to diuresis per medications. Range of Motion ROM Right Upper Extremity AROM: Moderate limitation (decreased shoulder flex/abd elbow, wrist, hand WFL's ) Left Upper Extremity AROM: Moderate limitation (decreased shoulder flex/abd elbow, wrist, hand WFL's ) Right Lower Extremity AROM: Moderate limitation (hip and knee limited due to lymphedema and pain) Left Lower Extremity AROM: Moderate limitation (hip and knee limited due to lymphedema and pain) Muscle Strength Muscle Strength Right Upper Extremity: Mild Weakness (shld flex 3-/5, elbow flex/ext 4/5, ) Left Upper Extremity: Mild Weakness (shld flex 3-/5, elbow flex/ext 4/5) Right Lower Extremity: Moderate Weakness (hip flex 3-/5, knee flex 3-/5, ext 4- /5, ankle 4-/5) Left Lower Extremity: Moderate Weakness (hip flex 3-/5, knee flex 3-/5, ext 4- /5, ankle 4-/5) Comments:: difficult to MMT BLE due to pain to touch Sensation Sensation Right Upper Extremity: Intact/Normal Left Upper Extremity: Intact/Normal Right Lower Extremity: Impaired Left Lower Extremity: Impaired Comments: pt with pins/needles and sharp pains BLE with palpation. Palpation Palpation Findings: Tenderness (BLE ) Balance Sitting Balance and Reactions Static Sitting Balance: Fair Dynamic Sitting Balance: Fair Standing Balance and Reactions Static Standing Balance: Poor Dynamic Standing Balance: Poor Functional Mobility Bed Mobility Rolling R/L: Mod Assist and 1 person assist Supine to Sit: Min Assist, Mod Assist and 1 person assist (pt also adjusted the head of bed to get out of bed. ) Transfers Sit to Stand: CGA (with the bed elevated ) and 2 person assist Stand to Sit: CGA and 2 person assist Safety Awareness Safety Awareness: Fair CHAVA INDEX SCORE: n/a Ambulation Ambulation Assistive Device Used: Rolling Walker Orthotic/Prosthetic Device: No Distance: 2-3 steps to chair Assistance needed with Ambulation: CGA and 2 person assist Gait Deviations: Wide Based gait, Forward posture and Short stride Ambulation Comments: pt took steps to bariatric recliner Factors Affecting Ambulation: Decreased Balance, Pain, Weakness, Decreased ROM, Decreased Safety and Limited Endurance Treatment time Units charged ADL: 1 (theract) Time with patient Length of Evaluation: 21 Total treatment time: 39 Patient Education Education Patient Education: Activity Modification and Education of Plan of Care Teaching Recipient: Patient Teaching Methods: Discussion Assessment Assessment Problem List:: Decreased level of function, Requires training/education, Decreased safety/Risk of falls, Weakness and Pain limits previous level of function Rehab Potential: Fair Further Therapy Indicated?: Yes Candidate for Swing Bed for Therapy Services?: Feel pt may not be a candidate for swing bed due to may require LTC. Evaluation Complexity: HISTORY: Medium, EXAM OF BODY SYSTEMS: Medium, CLINICAL PRESENTATION: Medium and CLINICAL DECISION MAKING: Medium Patient's Goal(s): be able to transfer to chair and go back home Short Term Goals GOAL #1: pt demonstrate rolling and scooting in bed with min x 1 Goal to be met by: 04/12/24 GOAL #2: Transfer sup to/from sit min x 1 Goal to be met by: 04/12/24 GOAL #3: Transfer sit to/from stand CGA to min x 1 w bed elevated Goal to be met by: 04/12/24 GOAL #4: pt transfer bed to chair with rwx with CGA to minx 1 Goal to be met by: 04/12/24 GOAL #5: Improve BLE strength 4-/5 Goal to be met by: 04/12/24 Director Law Enforcement Goals GOAL #1: pt transfer sup to/from sit to/from stand CGA x 1 Goal to be met by: 04/14/24 GOAL #2: pt amb 5ft from bed to chair CGA w rwx Goal to be met by: 04/14/24 GOAL #3: pt able to perform rolling and scooting in bed independently. Goal to be met by: 04/14/24 Plan Plan of Care: Therapeutic EX and Therapeutic Activity Other:: transfer training, progress to gait training as appropriate Frequency of Treatment: 1-2 X day, as tolerated Duration of Treatment: 5 days Anticipated Discharge Destination: Home Treatment Diagnosis (ICD 10 Codes): impaired balance R 26.81 gait difficulty R 26.2 weakness M62.81 falls R 29.6 Has the Physician been added for Co-signature?: Yes
[2024-04-09] MEDS: XANAX PO PRN (11:45)
[2024-04-09] MEDS: ATIVAN IVP ONE (13:55)
--- NOTE | 2024-04-09 16:44 | CT ---
EXAM: CT OF THE LEFT TIBIA/FIBULA WITHOUT CONTRAST COMPARISON: Radiographs of the left tibia/fibula 04/07/2024. CT left tibia/fibula 10/02/2023. HISTORY: Pain with recent fall. TECHNIQUE: Noncontrast CT images were obtained through the left calf. Axial reconstructions with sa gittal and coronal reformats were provided. FINDINGS: Minimally-displaced fracture through the proximal shaft of the fibula. Demineralization. Intra-articular fracture involving the anterolateral aspect the tibial plafond at the ankle with a 1 .0 cm displaced fragment involving the attachment of the anterior tibiofibular ligament at the syndes mosis. Minimal widening of the anterior syndesmosis at that level. Status post total knee arthropla sty without a component dislocation. Marked subcutaneous edema ill-defined subcutaneous fluid throughout the calf extending through the le poncho of the knee and ankle. Ill-defined subcutaneous fluid without definite drainable fluid collectio n. Superficial irregularity the soft tissues may represent some superficial ulceration along the keenan f without deep soft tissue ulcer or definite drainable fluid collection. No deep soft tissue gas. V ascular calcifications. Partially imaged degenerative changes of the ankle. Calcaneal spurs. IMPRESSION: Minimally-displaced fracture of the proximal shaft of the fibula. Mildly displaced intra-articular fracture through the anterolateral portion of the tibial plafond at the ankle with associated syndesmotic injury as described. Demineralization. Marked subcutaneous edema without drainable fluid collection. Additional chronic / postoperative changes as described. All CT scans are performed using dose optimization techniques as appropriate to the performed exam an d include at least one of the following: Automated exposure control, adjustment of the mA and/or kV according t o size, and the use of iterative reconstruction technique.
[2024-04-09] MEDS: PERCOCET 7.5-325 PO PRN (20:40)
[2024-04-10 08:46] LABS: BASOPHILS % (AUTO) 0.3 % (0.0-3.0); EOSINOPHILS # (AUTO) 0.3 K/ul (0.0-0.7); EOSINOPHILS % (AUTO) 5.1 % (0.0-7.0); HEMATOCRIT 36.3 % (37.0-47.0); HEMOGLOBIN 11.4 g/dl (12.0-16.0); IMMATURE GRANULOCYTE % (AUTO) 0.2 % (0.0-5.0); LYMPHOCYTES % (AUTO) 30.4 (10.0-50.0); MEAN CORPUSCULAR HEMOGLOBIN 29.8 pg (27.0-31.0); MEAN CORPUSCULAR HGB CONC 31.4 (31.8-35.4); MEAN CORPUSCULAR VOLUME 94.8 fl (81.0-99.0); MONOCYTES # (AUTO) 0.4 K/uL (0.4-2.0); MONOCYTES % (AUTO) 6.4 (0-10); NEUTROPHILS # (AUTO) 3.7 K/ul (2.0-6.9); NEUTROPHILS % (AUTO) 57.6 % (42.2-75.2); PLATELET COUNT 159 10^3/uL (140-440); RDW COEFFICIENT OF VARIATION 14.6 % (11.6-14.8); RED BLOOD COUNT 3.83 10^6/ul (4.20-5.40); WHITE BLOOD COUNT 6.41 K/ul (4.6-10.2)
[2024-04-10 09:03] LABS: ALBUMIN 3.05 g/dL (3.5-5.0); ALKALINE PHOSPHATASE 90.7 U/L (53-141); ASPARTATE AMINO TRANSFERASE 27.1 U/L (14-36); BILIRUBIN,TOTAL 1.95 mg/dL (0.2-1.3); BLOOD UREA NITROGEN 15.7 mg/dL (7-17); CALCIUM 8.3 mg/dL (8.4-10.2); CARBON DIOXIDE 34.6 mmol/L (22-30.0); CHLORIDE 99.7 mmol/L (98-107); CREATININE 1.2 mg/dL (0.60-1.30); GLUCOSE 139.6 mg/dL (74-106); POTASSIUM 3.4 mmol/L (3.5-5.1); TOTAL PROTEIN 5.58 g/dL (6.3-8.2)
[2024-04-10] MEDS: ATARAX PO PRN (09:11)
--- NOTE | 2024-04-10 11:02 | PCM.PROG ---
Date/Time Seen Date Seen by Provider: 04/10/24 Time Seen by Provider: 08:40 Provider Provider: [facility] Chief Complaint Chief Complaint: GENERALIZED WEAKNESS FALL W/ LLE CONTUSION, LYMPHE Subjective Subjective: CT performed showing distal tibial fx and proximal fibular fx. Pt made NWB on LLE. Pt continues to diurese. Objective Appearance: Positive No Apparent Distress, Alert and Oriented x3 and Obese Chest/Lungs: Positive Clear to Auscultation Bilaterally; Negative Rales, Rhonci or Wheezes Heart: Positive RRR GI/: Positive Soft, Nontender, Bowel Sounds Normal and No Distention Neurological: Positive Cranial Nerves Intact, Alert, Oriented and Other (+generalized weakness ) Additional Findings: lymphedema ble, significant swelling, improving, generalized erythema of both legs,improving, no open wounds. Vital Signs Vital Signs: Vital Signs: Last 24 Hours 04/09/24 11:04 04/09/24 12:00 04/09/24 13:00 Temperature 96.7 F L Temperature Source Pulse Rate 98 Respiratory Rate 20 Blood Pressure 114/82 Blood Pressure Mean 92 Blood Pressure Location Right Arm Blood Pressure Position Supine O2 Sat by Pulse Oximetry 100 Oxygen Delivery Method Room Air Height 5 ft 8 in Weight 162.5 kg Telemetry Type Remote Telemetry Telemetry Monitoring Continues Irregular Telemetry Rate (Approximate) 100-110 BPM Telemetry Heart Rate EKG QRS Interval 0.07 Telemetry Strip Reading afib 04/09/24 14:00 04/09/24 16:00 04/09/24 18:00 Temperature 97.3 F L 97.8 F 96.7 F L Temperature Source Temporal Artery Scan Temporal Artery Scan Temporal Artery Scan Pulse Rate 106 H 101 H 108 H Respiratory Rate 24 H 20 20 Blood Pressure 126/76 166/118 H 138/51 L Blood Pressure Mean 92 134 80 Blood Pressure Location Right Arm Right Arm Right Arm Blood Pressure Position Supine Supine Supine O2 Sat by Pulse Oximetry 94 L 96 94 L Oxygen Delivery Method Room Air Room Air Room Air Height Weight Telemetry Type Telemetry Monitoring Irregular Telemetry Rate (Approximate) Telemetry Heart Rate EKG QRS Interval Telemetry Strip Reading 04/09/24 19:00 04/09/24 20:59 04/10/24 01:00 Temperature 98 F Temperature Source Temporal Artery Scan Pulse Rate 101 H Respiratory Rate 21 H Blood Pressure 110/57 L Blood Pressure Mean 74 Blood Pressure Location Right Arm Blood Pressure Position Supine O2 Sat by Pulse Oximetry 96 Oxygen Delivery Method Room Air Height Weight Telemetry Type Remote Telemetry Remote Telemetry Telemetry Monitoring Continues Continues Irregular Telemetry Rate (Approximate) Telemetry Heart Rate 116 H 102 H EKG QRS Interval 0.08 0.09 Telemetry Strip Reading AFIB AFIB 04/10/24 05:12 04/10/24 07:00 Temperature 97.4 F L Temperature Source Temporal Artery Scan Pulse Rate 100 Respiratory Rate 16 Blood Pressure 111/57 L Blood Pressure Mean 75 Blood Pressure Location Right Arm Blood Pressure Position Supine O2 Sat by Pulse Oximetry 93 L Oxygen Delivery Method Room Air Height Weight Telemetry Type Remote Telemetry Telemetry Monitoring Continues Irregular Telemetry Rate (Approximate) Telemetry Heart Rate 95 EKG QRS Interval 0.09 Telemetry Strip Reading Atrial Fib Lab Results Lab Results: Lab Results: Last 24 Hours 04/10/24 08:20 WBC 6.41 RBC 3.83 L Hgb 11.4 L Hct 36.3 L MCV 94.8 MCH 29.8 MCHC 31.4 L RDW Coeff of Awilda 14.6 Plt Count 159 Immature Gran % (Auto) 0.2 Neut % (Auto) 57.6 Lymph % (Auto) 30.4 [place] % (Auto) 6.4 Eos % (Auto) 5.1 Baso % (Auto) 0.3 Neut # (Auto) 3.7 Lymph # (Auto) 2.0 [place] # (Auto) 0.4 Eos # (Auto) 0.3 Baso # (Auto) 0.0 Immature Gran # (Auto) 0.0 Sodium 139.0 Potassium 3.40 L Chloride 99.7 Carbon Dioxide 34.6 H Anion Gap 8.10 BUN 15.7 Creatinine 1.20 Estimated GFR (MDRD) 45.00 BUN/Creatinine Ratio 13.08 Glucose 139.6 H Calcium 8.30 L Total Bilirubin 1.95 H AST 27.1 ALT 27.0 Alkaline Phosphatase 90.7 Total Protein 5.58 L Albumin 3.05 L Globulin 2.53 Albumin/Globulin Ratio 1.20 Additional Comments Additional Comments: I have independently reviewed and interpreted the labs/EKGs/imaging ordered during this hospital stay. I have reviewed outside records that are available in our EMR that pertain to medical stay including imaging/notes/labs from previous visits. EXAM: CT OF THE LEFT TIBIA/FIBULA WITHOUT CONTRAST COMPARISON: Radiographs of the left tibia/fibula 04/07/2024. CT left tibia/fi bula 10/02/2023. HISTORY: Pain with recent fall. TECHNIQUE: Noncontrast CT images were obtained through the left calf. Axial reconstructions with sagittal and coronal reformats were provided. FINDINGS: Minimally-displaced fracture through the proximal shaft of the fibula. Demineralization. Intra-articular fracture involving the anterolateral aspect the tibial plafond at the ankle with a 1.0 cm displaced fragment involving the attachment of the anterior tibiofibular ligament at the syndesmosis. Minimal widening of the anterior syndesmosis at that level. Status post total knee arthroplasty without a component dislocation. Marked subcutaneous edema ill-defined subcutaneous fluid throughout the calf extending through the level of the knee and ankle. Ill-defined subcutaneous fluid without definite drainable fluid collection. Superficial irregularity the soft tissues may represent some superficial ulceration along the calf without deep soft tissue ulcer or definite drainable fluid collection. No deep soft tissue gas. Vascular calcifications. Partially imaged degenerative changes of the ankle. Calcaneal spurs. IMPRESSION: Minimally-displaced fracture of the proximal shaft of the fibula. Mildly displaced intra-articular fracture through the anterolateral portion of the tibial plafond at the ankle with associated syndesmotic injury as described. Demineralization. Marked subcutaneous edema without drainable fluid collection. Additional chronic / postoperative changes as described. Active Medications Active Medications: Medications Generic Name Dose Route Start Last Admin Trade Name Freq PRN Reason Stop Dose Admin Acetaminophen 650 mg 04/07/24 17:47 04/08/24 20:38 Acetaminophen 325 Mg Tablet PO 650 mg Q4H PRN Administration Mild Pain Albuterol Sulfate 2 puff 04/07/24 20:36 Albuterol Sulfate 8 Gm Inhaler IH Q4H PRN sob Alprazolam 1 mg 04/07/24 17:50 04/09/24 11:45 Alprazolam 0.5 Mg Tablet PO 1 mg TID PRN Administration Anxiety Apixaban 5 mg 04/07/24 21:00 04/10/24 08:21 Apixaban 5 Mg Tab PO 5 mg BID MARCELINO Administration Bumetanide 1 mg 04/08/24 04:00 04/10/24 05:03 Bumetanide 1 Mg/4 Ml Vial IVP 1 mg Q12H MARCELINO Administration Cholecalciferol 1,000 unit 04/08/24 09:00 04/10/24 08:20 Cholecalciferol (Vitamin D3) 1,000 Unit (25 Mcg) Tablet PO 1,000 unit DAILY MARCELINO Administration Cyclobenzaprine HCl 5 mg 04/07/24 21:00 04/10/24 08:21 Cyclobenzaprine Hcl 10 Mg Tablet PO 5 mg TID MARCELINO Administration Famotidine 20 mg 04/07/24 21:00 04/10/24 08:21 Famotidine 20 Mg Tablet PO 20 mg BID MARCELINO Administration Gabapentin 300 mg 04/07/24 21:00 04/09/24 20:39 Gabapentin 300 Mg Capsule PO 300 mg BEDTIME MARCELINO Administration Hydroxyzine HCl 25 mg 04/10/24 08:46 04/10/24 09:11 Hydroxyzine Hcl 25 Mg Tablet PO 25 mg Q6HR PRN Administration Itching Losartan Potassium 25 mg 04/07/24 21:00 04/08/24 20:36 Losartan Potassium 25 Mg Tablet PO Not Given BEDTIME MARCELINO Metoprolol Tartrate 25 mg 04/07/24 21:00 04/08/24 20:36 Metoprolol Tartrate 25 Mg Tablet PO Not Given BEDTIME MARCELINO Montelukast Sodium 10 mg 04/08/24 09:00 04/10/24 08:21 Montelukast Sodium 10 Mg Tablet PO 10 mg DAILY [facility] Administration Nystatin 1 applic 04/08/24 09:30 04/09/24 20:42 Nystatin 15 Gm Powder TP 1 applic BID [facility] Administration Omeprazole 40 mg 04/09/24 06:00 04/10/24 05:10 Omeprazole 20 Mg Capsule.Dr PO 40 mg QDAC2 [facility] Administration Ondansetron HCl 4 mg 04/07/24 17:47 Ondansetron Hcl/Pf 4 Mg/2 Ml Sdv IVP Q6H PRN Nausea / Vomiting Oxycodone/Acetaminophen 1 tab 04/09/24 09:51 04/10/24 08:21 Oxycodone/Acetaminophen 7.5/325 Mg Tablet PO 1 tab Q6HR PRN Administration MODERATE PAIN Ropinirole HCl 5 mg 04/07/24 21:00 04/10/24 08:41 Ropinirole Hcl 1 Mg Tablet PO Not Given BID [facility] Rosuvastatin Calcium 5 mg 04/07/24 21:00 04/09/24 20:39 Rosuvastatin Calcium 10 Mg Tablet PO 5 mg BEDTIME MARCELINO Administration Sodium Chloride 1 syr 04/09/24 21:00 04/10/24 05:03 0.9% Sodium Chloride 10 Ml Disp.Syrin IVF 1 syr Q8H MARCELINO Administration Plan Plan: 1. Bilateral lymphedema, worsened - Improving with diureses. Unable to perform ADLs, has gained 30+ lbs, fall risk. Will continue to diurese with bumex 1 mg bid, monitor I&Os, fluid restriction. Daily weights. PTOT. 2. Elevated BNP - Echo unchanged from previous 3. Hx of DVT - Cont eliquis 4. Hypertension - BP has been soft, hold bp meds 5. Hyperlipidemia - Cont home meds 6. Left distal tibial and proximal fibular fracture - s/p fall prior to admission. Discussed with Dr. Germán Cisneros, podiatry, at [place]. Due to her lack of mobility, her lymphedema, etc, would be best to avoid surgery. He recommends a compression wrap to help with lymphedema with a cam boot for 4-6 weeks and f/u outpatient. Fax facesheet and imaging report to his office. Discussed with patient she is unsafe to return home especially being NWB on LLE and her mobility issues. She is a major fall risk. Seeking care home placement. Patient is currently not safe to go home with current medical condition. She is a huge fall risk. She is unable to perform her ADLs due to the amount of fluid she is retaining, at least 30+lbs up from her baseline. She will require at least two midnights of treatment including diuresis, monitoring I&Os, monitoring renal function closely, and working with therapy to develop a safe discharge plan. High risk of readmission. DVT Prophylaxis: Eliquis Review Statement Review Statement: I have personally discussed and reviewed the patient's visit/currently labs/imaging/decision making with Dr. Ballard, my supervising attending. Greater that 50 minutes spent with patient, 50% of the time spent with this patient was devoted to counseling and coordination of care.
--- NOTE | 2024-04-10 12:14 | ECHO2D ---
Date of Exam: 04/09/2024 Room #: 115 Ordering Physician: CORDELIA ALVARADO NP (HOSPITALIST); NICOLA NYE NP (PCP) Reason for Echo: HEART FAILURE, CHRONIC OBSTRUCTIVE PULMONARY DISEASE, HYPERTENSION, HYPOKALEMIA, LYMPHEDEMA, WORSENING EDEMA M-Mode Normal Adult Results LV Dimensions Normal Adult Results AoV Opening excursions >1.6 >1.6 LVEDD-base- 3.5-5.8 4.1 Ao root dimensions 2.0-3.7 2.9 LVESD-base- 3.1-4.6 L. Atrium dimensions 1.9-3.8 5.3 Post. Wall thickness 0.8-1.1 1.3 IV septum (thickness) 0.7-1.2 1.4 Post. Wall excursion 0.72-1.3 NORMAL Septal motion NORMAL Systolic motion R. Ventricular cavity 1.5-2.0 4.0 LVEF 60% >60% Paradoxical septal wall motion NORMAL 2-D : 2-D M Mode Echocardiogram was performed using apical four chamber and left parasternal long and short axis views. ENLARGED RIGHT ATRIUM, LEFT ATRIUM, AND RIGHT VENTRICLE CAVITIES. NORMAL LEFT VENTRICLE SIZE AND LEFT VENTRICULAR CONTRACTILITY. NORMAL VALVES. NO EFFUSION, NO THROMBUS. M-MODE: MV: NORMAL AV: NORMAL TV: NORMAL PV: NORMAL CHAMBER SIZE: ENLARGED RIGHT ATRIUM, LEFT ATRIUM, AND RIGHT VENTRICLE CAVITIES. WALL MOTION: NORMAL PERICARDIUM: NORMAL INTERPRETATION: 1. DIFFICULT STUDY - TECHNICALLY DIFFICULT ECHOCARDIOGRAM. 2. LEFT VENTRICULAR HYPERTROPHY WITH ENLARGED LEFT ATRIUM CAVITY. 3. ENLARGED RIGHT ATRIUM AND RIGHT VENTRICLE CAVITIES. 4. NORMAL LEFT VENTRICLE SIZE AND LEFT VENTRICULAR CONTRACTILITY. UNCHANGED FROM 08/28/2022. MTDD
[2024-04-10] MEDS: K-DUR PO ONE ×2 (12:15→12:32)
[2024-04-10] MEDS ORDERED: TOPROL XL PO ONE (21:01)
[2024-04-10] MEDS: LOPRESSOR PO ONE (21:20)
[2024-04-11 05:12] LABS: BASOPHILS % (AUTO) 0.3 % (0.0-3.0); EOSINOPHILS # (AUTO) 0.3 K/ul (0.0-0.7); EOSINOPHILS % (AUTO) 5.3 % (0.0-7.0); HEMATOCRIT 33.6 % (37.0-47.0); HEMOGLOBIN 10.6 g/dl (12.0-16.0); IMMATURE GRANULOCYTE % (AUTO) 0.5 % (0.0-5.0); LYMPHOCYTES # (AUTO) 1.8 K/uL (0.60-3.4); LYMPHOCYTES % (AUTO) 28.5 (10.0-50.0); MEAN CORPUSCULAR HEMOGLOBIN 29.8 pg (27.0-31.0); MEAN CORPUSCULAR HGB CONC 31.5 (31.8-35.4); MEAN CORPUSCULAR VOLUME 94.4 fl (81.0-99.0); MONOCYTES # (AUTO) 0.5 K/uL (0.4-2.0); MONOCYTES % (AUTO) 7.8 (0-10); NEUTROPHILS # (AUTO) 3.7 K/ul (2.0-6.9); NEUTROPHILS % (AUTO) 57.6 % (42.2-75.2); PLATELET COUNT 157 10^3/uL (140-440); RDW COEFFICIENT OF VARIATION 14.4 % (11.6-14.8); RED BLOOD COUNT 3.56 10^6/ul (4.20-5.40); WHITE BLOOD COUNT 6.45 K/ul (4.6-10.2)
[2024-04-11 05:38] LABS: ALANINE AMINOTRANSFERASE 21.5 U/L (0-35); ALBUMIN 2.78 g/dL (3.5-5.0); ALKALINE PHOSPHATASE 83.9 U/L (53-141); ASPARTATE AMINO TRANSFERASE 24.6 U/L (14-36); BILIRUBIN,TOTAL 1.39 mg/dL (0.2-1.3); BLOOD UREA NITROGEN 17.9 mg/dL (7-17); CALCIUM 8.07 mg/dL (8.4-10.2); CHLORIDE 98.2 mmol/L (98-107); CREATININE 1.46 mg/dL (0.60-1.30); POTASSIUM 3.14 mmol/L (3.5-5.1); SODIUM 137.2 mmol/L (134.5-145); TOTAL PROTEIN 5.3 g/dL (6.3-8.2)
[2024-04-11] MEDS: K-DUR PO ONE ×2 (09:10→14:52)
--- NOTE | 2024-04-11 09:51 | PCM.PROG ---
Date/Time Seen Date Seen by Provider: 04/11/24 Time Seen by Provider: 09:00 Provider Provider: CORDELIA ALVARADO [facility]-C[facility] Chief Complaint Chief Complaint: GENERALIZED WEAKNESS FALL W/ LLE CONTUSION, LYMPHE Subjective Subjective: Patient has diuresed about 19L total. She states her swelling is the best it has been in a while. Referral sent to local [place]. Objective Appearance: Positive No Apparent Distress, Alert and Oriented x3 and Obese Chest/Lungs: Positive Clear to Auscultation Bilaterally; Negative Rales, Rhonci or Wheezes Heart: Positive RRR GI/: Positive Soft, Nontender, Bowel Sounds Normal and No Distention Neurological: Positive Cranial Nerves Intact, Alert, Oriented and Other (+generalized weakness ) Additional Findings: lymphedema ble, significant swelling, improving, generalized erythema of both legs,improving, no open wounds. Vital Signs Vital Signs: Vital Signs: Last 24 Hours 04/10/24 10:00 04/10/24 13:00 04/10/24 15:00 Temperature 98.3 F Temperature Source Oral Pulse Rate 98 102 H Respiratory Rate 20 20 Blood Pressure 116/78 96/60 Blood Pressure Mean 90 72 Blood Pressure Location Right Arm Right Arm Blood Pressure Position Supine Sitting O2 Sat by Pulse Oximetry 94 L 94 L Oxygen Delivery Method Room Air Room Air Telemetry Type Remote Telemetry Telemetry Monitoring Continues Irregular Telemetry Rate (Approximate) 90-100 BPM Telemetry Heart Rate EKG QRS Interval 0.06 Telemetry Strip Reading afib 04/10/24 18:00 04/10/24 19:00 04/10/24 20:57 Temperature 98.3 F 97.8 F Temperature Source Oral Temporal Artery Scan Pulse Rate 94 119 H Respiratory Rate 20 20 Blood Pressure 93/56 L 134/70 Blood Pressure Mean 68 91 Blood Pressure Location Right Arm Right Arm Blood Pressure Position Sitting Supine O2 Sat by Pulse Oximetry 97 96 Oxygen Delivery Method Room Air Room Air Telemetry Type Remote Telemetry Telemetry Monitoring Continues Irregular Telemetry Rate (Approximate) 110-120 BPM Telemetry Heart Rate EKG QRS Interval 0.06 Telemetry Strip Reading AFIB W/ RVR 04/10/24 23:54 04/11/24 01:00 04/11/24 05:14 Temperature 97.1 F L Temperature Source Temporal Artery Scan Pulse Rate 96 100 Respiratory Rate 20 Blood Pressure 105/61 96/55 L Blood Pressure Mean 75 68 Blood Pressure Location Right Arm Right Arm Blood Pressure Position Supine Supine O2 Sat by Pulse Oximetry 94 L Oxygen Delivery Method Room Air Room Air Telemetry Type Remote Telemetry Telemetry Monitoring Continues Irregular Telemetry Rate (Approximate) 100-110 BPM Telemetry Heart Rate EKG QRS Interval 0.08 Telemetry Strip Reading afib 04/11/24 07:00 Temperature Temperature Source Pulse Rate Respiratory Rate Blood Pressure Blood Pressure Mean Blood Pressure Location Blood Pressure Position O2 Sat by Pulse Oximetry Oxygen Delivery Method Telemetry Type Remote Telemetry Telemetry Monitoring Continues Irregular Telemetry Rate (Approximate) 90-100BPM Telemetry Heart Rate 94 EKG QRS Interval 0.09 Telemetry Strip Reading AFIB Lab Results Lab Results: Lab Results: Last 24 Hours 04/11/24 04:50 WBC 6.45 RBC 3.56 L Hgb 10.6 L Hct 33.6 L MCV 94.4 MCH 29.8 MCHC 31.5 L RDW Coeff of Awilda 14.4 Plt Count 157 Immature Gran % (Auto) 0.5 Neut % (Auto) 57.6 Lymph % (Auto) 28.5 [place] % (Auto) 7.8 Eos % (Auto) 5.3 Baso % (Auto) 0.3 Neut # (Auto) 3.7 Lymph # (Auto) 1.8 [place] # (Auto) 0.5 Eos # (Auto) 0.3 Baso # (Auto) 0.0 Immature Gran # (Auto) 0.0 Sodium 137.2 Potassium 3.14 L Chloride 98.2 Carbon Dioxide 38.0 H Anion Gap 4.14 BUN 17.9 H Creatinine 1.46 H Estimated GFR (MDRD) 36.00 BUN/Creatinine Ratio 12.26 Glucose 117.0 H Calcium 8.07 L Total Bilirubin 1.39 H AST 24.6 ALT 21.5 Alkaline Phosphatase 83.9 Total Protein 5.30 L Albumin 2.78 L Globulin 2.52 Albumin/Globulin Ratio 1.10 Additional Comments Additional Comments: I have independently reviewed and interpreted the labs/EKGs/imaging ordered during this hospital stay. I have reviewed outside records that are available in our EMR that pertain to medical stay including imaging/notes/labs from previous visits. Active Medications Active Medications: Medications Generic Name Dose Route Start Last Admin Trade Name Freq PRN Reason Stop Dose Admin Acetaminophen 650 mg 04/07/24 17:47 04/08/24 20:38 Acetaminophen 325 Mg Tablet PO 650 mg Q4H PRN Administration Mild Pain Albuterol Sulfate 2 puff 04/07/24 20:36 Albuterol Sulfate 8 Gm Inhaler IH Q4H PRN sob Alprazolam 1 mg 04/07/24 17:50 04/09/24 11:45 Alprazolam 0.5 Mg Tablet PO 1 mg TID PRN Administration Anxiety Apixaban 5 mg 04/07/24 21:00 04/11/24 09:14 Apixaban 5 Mg Tab PO 5 mg BID MARCELINO Administration Bumetanide 1 mg 04/12/24 09:00 Bumetanide 1 Mg Tablet PO QDAC2 MARCELINO Cholecalciferol 1,000 unit 04/08/24 09:00 04/11/24 09:12 Cholecalciferol (Vitamin D3) 1,000 Unit (25 Mcg) Tablet PO 1,000 unit DAILY MARCELINO Administration Cyclobenzaprine HCl 5 mg 04/07/24 21:00 04/11/24 09:15 Cyclobenzaprine Hcl 10 Mg Tablet PO 5 mg TID MARCELINO Administration Emollient Cream 1 applic 04/11/24 09:16 Emollient Combination No.41 155 Gm Liquid TP BID PRN Itching Famotidine 20 mg 04/07/24 21:00 04/11/24 09:14 Famotidine 20 Mg Tablet PO 20 mg BID MARCELINO Administration Gabapentin 300 mg 04/07/24 21:00 04/10/24 20:07 Gabapentin 300 Mg Capsule PO 300 mg BEDTIME MARCELINO Administration Hydroxyzine HCl 25 mg 04/10/24 08:46 04/10/24 16:58 Hydroxyzine Hcl 25 Mg Tablet PO 25 mg Q6HR PRN Administration Itching Losartan Potassium 25 mg 04/07/24 21:00 04/08/24 20:36 Losartan Potassium 25 Mg Tablet PO Not Given BEDTIME MARCELINO Metoprolol Tartrate 25 mg 04/07/24 21:00 04/08/24 20:36 Metoprolol Tartrate 25 Mg Tablet PO Not Given BEDTIME MARCELINO Montelukast Sodium 10 mg 04/08/24 09:00 04/11/24 09:12 Montelukast Sodium 10 Mg Tablet PO 10 mg DAILY MARCELINO Administration Nystatin 1 applic 04/08/24 09:30 04/10/24 20:10 Nystatin 15 Gm Powder TP 1 applic BID MARCELINO Administration Omeprazole 40 mg 04/09/24 06:00 04/11/24 05:03 Omeprazole 20 Mg Capsule. PO 40 mg QDAC2 MARCELINO Administration Ondansetron HCl 4 mg 04/07/24 17:47 Ondansetron Hcl/Pf 4 Mg/2 Ml Sdv IVP Q6H PRN Nausea / Vomiting Oxycodone/Acetaminophen 1 tab 04/09/24 09:51 04/11/24 05:33 Oxycodone/Acetaminophen 7.5/325 Mg Tablet PO 1 tab Q6HR PRN Administration MODERATE PAIN Potassium Chloride 40 meq 04/11/24 15:00 Potassium Chloride 20 Meq Tab PO 04/11/24 15:01 ONCE ONE Ropinirole HCl 5 mg 04/11/24 13:00 Ropinirole Hcl 1 Mg Tablet PO 1300,2100 MARCELINO Rosuvastatin Calcium 5 mg 04/07/24 21:00 04/10/24 20:08 Rosuvastatin Calcium 10 Mg Tablet PO 5 mg BEDTIME MARCELINO Administration Sodium Chloride 1 syr 04/09/24 21:00 04/11/24 05:03 0.9% Sodium Chloride 10 Ml Disp.Syrin IVF 1 syr Q8H MARCELINO Administration Sodium Chloride 1 syr 04/10/24 17:20 0.9% Sodium Chloride 10 Ml Disp.Syrin IVF PRN PRN Maintain IV Patency Plan Plan: 1. Bilateral lymphedema, worsened - Improving with diuresis. Unable to perform A DLs, has gained 30+ lbs, fall risk. Transition to bumex po 1 mg daily, monitor I&Os, fluid restriction. Daily weights. PTOT. 2. Elevated BNP - Echo unchanged from previous 3. Hx of DVT - Cont eliquis 4. Hypertension - BP has been soft, hold bp meds 5. Hyperlipidemia - Cont home meds 6. Left distal tibial and proximal fibular fracture - s/p fall prior to admission. Discussed with Dr. Germán Cisneros, podiatry, at [place]. Due to her lack of mobility, her lymphedema, etc, would be best to avoid surgery. He recommends a compression wrap to help with lymphedema with a cam boot for 4-6 weeks and f/u outpatient. Fax facesheet and imaging report to his office. Discussed with patient she is unsafe to return home especially being NWB on LLE and her mobility issues. She is a major fall risk. Seeking retirement placement. Patient is currently not safe to go home with current medical condition. She is a huge fall risk. She is unable to perform her ADLs due to the amount of fluid she is retaining, at least 30+lbs up from her baseline. She will require at least two midnights of treatment including diuresis, monitoring I&Os, monitoring renal function closely, and working with therapy to develop a safe discharge plan. High risk of readmission. DVT Prophylaxis: Jose Daniel Review Statement Review Statement: I have personally discussed and reviewed the patient's visit/currently labs/imaging/decision making with Dr. Ballard, my supervising attending. Greater that 50 minutes spent with patient, 50% of the time spent with this patient was devoted to counseling and coordination of care.
[2024-04-11] MEDS: REQUIP PO SCH (12:37)
[2024-04-11] MEDS: GOLD BOND ULTIMATE HEALING TP PRN (14:49)
[2024-04-11 16:22] LABS: ABG O2 HGB 92.7 % (95-100); BEecf 14.5 (-2.0-3.0); COHb 1.8 (0.5-1.5); HCO3 36.7 (21-28); MetHb 0.4 (0-1.5); sO2 96.7 % (94-98)
[2024-04-11 16:25] LABS: ABG PH 7.56 (7.35-7.45)
[2024-04-11] MEDS: DIAMOX PO SCH (17:21)
[2024-04-11] MEDS: DIAMOX ONE (17:32)
[2024-04-11] MEDS: TOPROL XL PO SCH (20:17)
[2024-04-12] MEDS: DIAMOX PO SCH (05:27)
[2024-04-12 05:44] LABS: BASOPHILS % (AUTO) 0.3 % (0.0-3.0); EOSINOPHILS # (AUTO) 0.3 K/ul (0.0-0.7); EOSINOPHILS % (AUTO) 5.6 % (0.0-7.0); HEMATOCRIT 36.5 % (37.0-47.0); HEMOGLOBIN 11.2 g/dl (12.0-16.0); IMMATURE GRANULOCYTE % (AUTO) 0.2 % (0.0-5.0); LYMPHOCYTES % (AUTO) 32.8 (10.0-50.0); MEAN CORPUSCULAR HEMOGLOBIN 29.6 pg (27.0-31.0); MEAN CORPUSCULAR HGB CONC 30.7 (31.8-35.4); MEAN CORPUSCULAR VOLUME 96.3 fl (81.0-99.0); MONOCYTES # (AUTO) 0.4 K/uL (0.4-2.0); MONOCYTES % (AUTO) 6.1 (0-10); NEUTROPHILS # (AUTO) 3.4 K/ul (2.0-6.9); PLATELET COUNT 165 10^3/uL (140-440); RDW COEFFICIENT OF VARIATION 14.2 % (11.6-14.8); RED BLOOD COUNT 3.79 10^6/ul (4.20-5.40)
[2024-04-12 05:59] LABS: ALANINE AMINOTRANSFERASE 19.5 U/L (0-35); ALBUMIN 2.95 g/dL (3.5-5.0); ALKALINE PHOSPHATASE 85.6 U/L (53-141); ASPARTATE AMINO TRANSFERASE 23.8 U/L (14-36); BILIRUBIN,TOTAL 1.44 mg/dL (0.2-1.3); BLOOD UREA NITROGEN 15.3 mg/dL (7-17); CALCIUM 8.36 mg/dL (8.4-10.2); CARBON DIOXIDE 36.3 mmol/L (22-30.0); CHLORIDE 97.4 mmol/L (98-107); CREATININE 1.36 mg/dL (0.60-1.30); GLUCOSE 98.1 mg/dL (74-106); POTASSIUM 3.3 mmol/L (3.5-5.1); SODIUM 134.7 mmol/L (134.5-145); TOTAL PROTEIN 5.57 g/dL (6.3-8.2)
[2024-04-12] MEDS ORDERED: BUMEX PO SCH (09:00)
[2024-04-12] MEDS: K-DUR PO ONE ×2 (09:10→14:44)
--- NOTE | 2024-04-12 09:27 | PCM.PROG ---
Date/Time Seen Date Seen by Provider: 04/12/24 Time Seen by Provider: 08:30 Provider Provider: CORDEL[facility]ADO [facility] Chief Complaint Chief Complaint: GENERALIZED WEAKNESS FALL W/ LLE CONTUSION, LYMPHE Subjective Subjective: Patient upset about her diet being a cardiac diet, requesting regular diet. Redid the compression april wrap to left lower ext and put her boot back on, this caused significant pain. Otherwise no complaints, swelling significantly improved. Objective Appearance: Positive No Apparent Distress, Alert and Oriented x3 and Obese Chest/Lungs: Positive Clear to Auscultation Bilaterally; Negative Rales, Rhonci or Wheezes Heart: Positive RRR GI/: Positive Soft, Nontender, Bowel Sounds Normal and No Distention Neurological: Positive Cranial Nerves Intact, Alert, Oriented and Other (+generalized weakness ) Additional Findings: lymphedema ble, significant swelling, improving, generalized erythema of both legs,improving, no open wounds. Vital Signs Vital Signs: Vital Signs: Last 24 Hours 04/11/24 13:00 04/11/24 14:00 04/11/24 18:00 Temperature 98.7 F 97.6 F Temperature Source Temporal Artery Scan Temporal Artery Scan Pulse Rate 106 H 103 H Pulse Rate [Apical] Respiratory Rate 20 21 H Blood Pressure 91/57 L 96/67 Blood Pressure Mean 68 76 Blood Pressure Location Left Arm Right Arm Blood Pressure Position Supine Supine O2 Sat by Pulse Oximetry 92 L 96 Oxygen Delivery Method Room Air Nasal Cannula Oxygen Flow Rate 2 Telemetry Type Remote Telemetry Telemetry Monitoring Continues Irregular Telemetry Rate (Approximate) 90-100BPM Telemetry Heart Rate 98 EKG QRS Interval 0.09 Telemetry Strip Reading AFIB 04/11/24 19:00 04/11/24 19:48 04/11/24 20:00 Temperature Temperature Source Pulse Rate Pulse Rate [Apical] Respiratory Rate Blood Pressure Blood Pressure Mean Blood Pressure Location Blood Pressure Position O2 Sat by Pulse Oximetry 95 Oxygen Delivery Method Nasal Cannula Nasal Cannula Oxygen Flow Rate 2 2 Telemetry Type Remote Telemetry Telemetry Monitoring Continues Irregular Telemetry Rate (Approximate) 100-110 BPM Telemetry Heart Rate 101 H EKG QRS Interval 0.07 Telemetry Strip Reading AFIB 04/11/24 20:49 04/12/24 01:00 CONVENTION PLANNER 04/12/24 03:03 Temperature 97.8 F Temperature Source Temporal Artery Scan Pulse Rate 106 H 97 Pulse Rate [Apical] Respiratory Rate 20 Blood Pressure 104/70 114/86 Blood Pressure Mean 81 95 Blood Pressure Location Right Radial Artery Right Arm Blood Pressure Position Supine Supine O2 Sat by Pulse Oximetry 94 L 98 Oxygen Delivery Method Nasal Cannula Nasal Cannula Oxygen Flow Rate 2 2 Telemetry Type Remote Telemetry Telemetry Monitoring Continues Irregular Telemetry Rate (Approximate) 80-90 BPM Telemetry Heart Rate EKG QRS Interval 0.09 Telemetry Strip Reading AFIB 04/12/24 05:27 04/12/24 05:33 04/12/24 07:00 Temperature 96.5 F L Temperature Source Temporal Artery Scan Pulse Rate 106 H Pulse Rate [Apical] Respiratory Rate 20 Blood Pressure 94/66 Blood Pressure Mean 75 Blood Pressure Location Right Radial Artery Blood Pressure Position Supine O2 Sat by Pulse Oximetry 96 94 L Oxygen Delivery Method Nasal Cannula Room Air Oxygen Flow Rate 2 Telemetry Type Remote Telemetry Telemetry Monitoring Continues Irregular Telemetry Rate (Approximate) 90-100 Telemetry Heart Rate 98 EKG QRS Interval 0.06 Telemetry Strip Reading Afib 04/12/24 08:00 Temperature Temperature Source Pulse Rate Pulse Rate [Apical] 100 Respiratory Rate 16 Blood Pressure Blood Pressure Mean Blood Pressure Location Blood Pressure Position O2 Sat by Pulse Oximetry Oxygen Delivery Method Nasal Cannula Oxygen Flow Rate 2 Telemetry Type Telemetry Monitoring Irregular Telemetry Rate (Approximate) Telemetry Heart Rate EKG QRS Interval Telemetry Strip Reading Lab Results Lab Results: Lab Results: Last 24 Hours 04/12/24 04/12/24 04/11/24 08:31 06:00 16:06 WBC 6.10 RBC 3.79 L Hgb 11.2 L Hct 36.5 L MCV 96.3 MCH 29.6 MCHC 30.7 L RDW Coeff of Awilda 14.2 Plt Count 165 Immature Gran % (Auto) 0.2 Neut % (Auto) 55.0 Lymph % (Auto) 32.8 [place] % (Auto) 6.1 Eos % (Auto) 5.6 Baso % (Auto) 0.3 Neut # (Auto) 3.4 Lymph # (Auto) 2.0 [place] # (Auto) 0.4 Eos # (Auto) 0.3 Baso # (Auto) 0.0 Immature Gran # (Auto) 0.0 Puncture Site L rad Base Excess 14.5 H O2 Saturation 96.7 ABG pH 7.56 H* ABG pCO2 41.0 ABG pO2 75.0 L ABG HCO3 36.7 H ABG Total CO2 38.0 H Rickie Test Pos Hemoglobin 0.4 Oxyhemoglobin 92.7 L Carboxyhemoglobin 1.8 H Total Hemoglobin 11.0 L FiO2 % 21.0 Sodium 134.7 Potassium 3.30 L Chloride 97.4 L Carbon Dioxide 36.3 H Anion Gap 4.30 BUN 15.3 Creatinine 1.36 H Estimated GFR (MDRD) 39.00 BUN/Creatinine Ratio 11.25 Glucose 98.1 Calcium 8.36 L Magnesium 1.69 Total Bilirubin 1.44 H AST 23.8 ALT 19.5 Alkaline Phosphatase 85.6 Total Protein 5.57 L Albumin 2.95 L Globulin 2.62 Albumin/Globulin Ratio 1.12 Additional Comments Additional Comments: I have independently reviewed and interpreted the labs/EKGs/imaging ordered during this hospital stay. I have reviewed outside records that are available in our EMR that pertain to medical stay including imaging/notes/labs from previous visits. Active Medications Active Medications: Medications Generic Name Dose Route Start Last Admin Trade Name Freq PRN Reason Stop Dose Admin Acetaminophen 650 mg 04/07/24 17:47 04/08/24 20:38 Acetaminophen 325 Mg Tablet PO 650 mg Q4H PRN Administration Mild Pain Acetazolamide 250 mg 04/12/24 05:00 04/12/24 05:27 Acetazolamide 250 Mg Tablet PO 250 mg 0500,1700 MARCELINO Administration Albuterol Sulfate 2 puff 04/07/24 20:36 Albuterol Sulfate 8 Gm Inhaler IH Q4H PRN sob Alprazolam 1 mg 04/07/24 17:50 04/09/24 11:45 Alprazolam 0.5 Mg Tablet PO 1 mg TID PRN Administration Anxiety Apixaban 5 mg 04/07/24 21:00 04/12/24 08:40 Apixaban 5 Mg Tab PO 5 mg BID MARCELINO Administration Cholecalciferol 1,000 unit 04/08/24 09:00 04/12/24 08:40 Cholecalciferol (Vitamin D3) 1,000 Unit (25 Mcg) Tablet PO 1,000 unit DAILY MARCELINO Administration Cyclobenzaprine HCl 5 mg 04/07/24 21:00 04/12/24 08:39 Cyclobenzaprine Hcl 10 Mg Tablet PO 5 mg TID MARCELINO Administration Emollient Cream 1 applic 04/11/24 09:16 04/11/24 14:49 Emollient Combination No.41 155 Gm Liquid TP 1 applic BID PRN Administration Itching Famotidine 20 mg 04/07/24 21:00 04/12/24 08:40 Famotidine 20 Mg Tablet PO 20 mg BID MARCELINO Administration Gabapentin 300 mg 04/07/24 21:00 04/11/24 20:16 Gabapentin 300 Mg Capsule PO 300 mg BEDTIME MARCELINO Administration Hydroxyzine HCl 25 mg 04/10/24 08:46 04/10/24 16:58 Hydroxyzine Hcl 25 Mg Tablet PO 25 mg Q6HR PRN Administration Itching Losartan Potassium 25 mg 04/07/24 21:00 04/08/24 20:36 Losartan Potassium 25 Mg Tablet PO Not Given BEDTIME MARCELINO Metoprolol Succinate 12.5 mg 04/11/24 21:00 04/12/24 08:39 Metoprolol Succinate 25 Mg Tab.Er.24h PO 12.5 mg DAILY MARCELINO Administration Metoprolol Tartrate 25 mg 04/07/24 21:00 04/08/24 20:36 Metoprolol Tartrate 25 Mg Tablet PO Not Given BEDTIME MARCELINO Montelukast Sodium 10 mg 04/08/24 09:00 04/12/24 08:41 Montelukast Sodium 10 Mg Tablet PO 10 mg DAILY MARCELINO Administration Nystatin 1 applic 04/08/24 09:30 04/12/24 09:09 Nystatin 15 Gm Powder TP 1 applic BID MARCELINO Administration Omeprazole 40 mg 04/09/24 06:00 04/12/24 05:27 Omeprazole 20 Mg Capsule.Dr PO 40 mg QDAC2 MARCELINO Administration Ondansetron HCl 4 mg 04/07/24 17:47 Ondansetron Hcl/Pf 4 Mg/2 Ml Sdv IVP Q6H PRN Nausea / Vomiting Oxycodone/Acetaminophen 1 tab 04/09/24 09:51 04/12/24 05:27 Oxycodone/Acetaminophen 7.5/325 Mg Tablet PO 1 tab Q6HR PRN Administration MODERATE PAIN Ropinirole HCl 5 mg 04/11/24 13:00 04/11/24 20:16 Ropinirole Hcl 1 Mg Tablet PO 5 mg 1300,2100 MARCELINO Administration Rosuvastatin Calcium 5 mg 04/07/24 21:00 04/11/24 20:16 Rosuvastatin Calcium 10 Mg Tablet PO 5 mg BEDTIME MARCELINO Administration Sodium Chloride 1 syr 04/09/24 21:00 04/12/24 05:34 0.9% Sodium Chloride 10 Ml Disp.Syrin IVF 1 syr Q8H MARCELINO Administration Sodium Chloride 1 syr 04/10/24 17:20 0.9% Sodium Chloride 10 Ml Disp.Syrin IVF PRN PRN Maintain IV Patency Plan Plan: 1. Bilateral lymphedema, worsened - Improving with diuresis. Unable to perform ADLs, has gained 30+ lbs, fall risk. monitor I&Os, fluid restriction. Daily weig hts. PTOT. Bumex was held today due to some contracture alkalosis, and patient will be given 4 total doses of diamox starting last night. 2. Hypokalemia - Replaced 3. Hypomagnesemia - 2gm rider given 4. Hx of DVT - Cont eliquis 5. Hypertension - BP has been soft. Have been holding her losartan and cut her metoprolol dose in half to 12.5 mg. 6. Hyperlipidemia - Cont home meds 7. Left distal tibial and proximal fibular fracture - s/p fall prior to admission. Discussed with Dr. Germán Cisneros, podiatry, at [place]. Due to her lack of mobility, her lymphedema, etc, would be best to avoid surgery. He recommends a compression wrap to help with lymphedema with a cam boot for 4-6 weeks and f/u outpatient. Fax facesheet and imaging report to his office. Discussed with patient she is unsafe to return home especially being NWB on LLE and her mobility issues. She is a major fall risk. Seeking prison placement. Leave cam boot on except for hygiene/bathing. Monitor for pressure wound areas. Patient is currently not safe to go home with current medical condition. She is a huge fall risk. She is unable to perform her ADLs due to the amount of fluid she is retaining, at least 30+lbs up from her baseline. She will require at least two midnights of treatment including diuresis, monitoring I&Os, monitoring renal function closely, and working with therapy to develop a safe discharge pl an. High risk of readmission. DVT Prophylaxis: Eliquis Review Statement Review Statement: I have personally discussed and reviewed the patient's visit/currently labs/imaging/decision making with Dr. Ballard, my supervising attending. Greater that 50 minutes spent with patient, 50% of the time spent with this p atient was devoted to counseling and coordination of care.
[2024-04-12] MEDS: MAGNESIUM SULF 2 G/50 ML BAG 2 GM/50 ML PIGGYBACK IV ONE (09:39)
[2024-04-12 17:54] VITALS: RESP 18
[2024-04-13 05:45] LABS: BASOPHILS % (AUTO) 0.4 % (0.0-3.0); EOSINOPHILS # (AUTO) 0.3 K/ul (0.0-0.7); EOSINOPHILS % (AUTO) 6.7 % (0.0-7.0); HEMATOCRIT 35.7 % (37.0-47.0); HEMOGLOBIN 11.1 g/dl (12.0-16.0); IMMATURE GRANULOCYTE % (AUTO) 0.4 % (0.0-5.0); LYMPHOCYTES # (AUTO) 1.8 K/uL (0.60-3.4); LYMPHOCYTES % (AUTO) 34.3 (10.0-50.0); MEAN CORPUSCULAR HEMOGLOBIN 29.8 pg (27.0-31.0); MEAN CORPUSCULAR HGB CONC 31.1 (31.8-35.4); MONOCYTES # (AUTO) 0.4 K/uL (0.4-2.0); MONOCYTES % (AUTO) 6.9 (0-10); NEUTROPHILS # (AUTO) 2.6 K/ul (2.0-6.9); NEUTROPHILS % (AUTO) 51.3 % (42.2-75.2); PLATELET COUNT 169 10^3/uL (140-440); RDW COEFFICIENT OF VARIATION 14.2 % (11.6-14.8); RED BLOOD COUNT 3.72 10^6/ul (4.20-5.40)
[2024-04-13 06:03] LABS: ALANINE AMINOTRANSFERASE 16.7 U/L (0-35); ALBUMIN 2.81 g/dL (3.5-5.0); ALKALINE PHOSPHATASE 84.3 U/L (53-141); ASPARTATE AMINO TRANSFERASE 23.1 U/L (14-36); BILIRUBIN,TOTAL 0.99 mg/dL (0.2-1.3); BLOOD UREA NITROGEN 13.9 mg/dL (7-17); CALCIUM 8.57 mg/dL (8.4-10.2); CARBON DIOXIDE 32.3 mmol/L (22-30.0); CHLORIDE 101.7 mmol/L (98-107); CREATININE 1.3 mg/dL (0.60-1.30); GLUCOSE 102.8 mg/dL (74-106); POTASSIUM 3.28 mmol/L (3.5-5.1); SODIUM 136.6 mmol/L (134.5-145); TOTAL PROTEIN 5.27 g/dL (6.3-8.2)
[2024-04-13] MEDS: K-DUR PO ONE (09:14)
--- NOTE | 2024-04-13 11:09 | DCSUM ---
Admission Date Admission Date: 04/07/24 Discharge Date Discharge Date: 04/13/24 Admission Diagnosis Admission Diagnosis: 1. Bilateral lymphedema, worsened 2. Elevated BNP 3. Hx of DVT 4. Hypertension 5. Hyperlipidemia Discharge Diagnosis Discharge Diagnosis: 1. Bilateral lymphedema, worsened - Improved 2. Hypokalemia - Replaced 3. Hypomagnesemia - Replaced 4. Hx of DVT - continue eliquis 5. Hypertension - Decreased home medications 6. Hyperlipidemia - chronic, stable 7. Left distal tibial and proximal fibular fracture - FU with ortho outpatient Hospital Provider Hospital Provider: RICH ROSENBAUM, [facility] Primary Care Physician Primary Care Physician: NICOLA NYE Summary of History and Physical Summary of History and Physical: Patient is a 63 year old female from home with pmhx of lymphedema, recurrent cellulitis, anxiety, bipolar disorder, COPD, who presented to the ER for a fall and unable to ambulate. Patient has had multiple hospitalizations this year. States she was in a [facility] for 3 months, and has since been home for about 6 weeks. States she was "doing good" and could walk about 8 steps. She relies on her scooter to get around. She had a fall the night prior to coming to the ER. Required lift assist from EMS but did not feel she needed to come to ER. However yesterday she couldn't ambulate. She states she's gained a significant amount of weight due to swelling and worsening lymphedema. She is unable to perform her ADLs. Has pain in her legs. X rays in ER negative. BNP elevated. Had an US of LLE without DVT. She was given bumex. Admitted to [facility]. Hospital Course Subjective: During stay, patient lymphedema treated with diuresis. Greatly improved. Weeping resolved. Has lost 13 lbs since initial admission. Bumex was held yesterday due to mild contracture alkalosis. 4 doses of diamox given. Able to resume home medications as previously prescribed today. Replacement of potassium and magnesium given and levels within normal limits. BP ran soft at times. Losartan was held and not resumed. Metoprolol dose was decreased to 12.5 mg. Left distal tibial and proximal fibular fracture - s/p fall prior to admission. Discussed with Dr. Germán Cisneros, podiatry, at [place]. Due to her lack of mob ility, her lymphedema, etc, would be best to avoid surgery. He recommends a compression wrap to help with lymphedema with a cam boot for 4-6 weeks and f/u outpatient. Fax facesheet and imaging report to his office. Discussed with patient she is unsafe to return home especially being NWB on LLE and her mobility issues. She is a major fall risk. Leave cam boot on except for hygiene/bathing. Monitor for pressure wound areas. Patient is currently not safe to go home with current medical condition. She is a huge fall risk. She is unable to perform her ADLs due to the amount of fluid she is retaining, at least 30+lbs up from her baseline. D/c to SNF today. Appearance: Pleasant, No Apparent Distress and Alert HEENT: MMM, Supple and No JVD CVS: No Murmur and No Rubs Abdomen: Soft, Non-Tender and No Distention Respiratory: No Dyspnea Extremities: Other (Lymphedema ble, significant swelling, improving, generalized erythema of both legs,improving, no open wounds. Camb[place] in place to LLE) Vital Signs: Most Recent Vital Signs Temperature 97.9 F 04/13/24 10:00 Temperature Source Temporal Artery Scan 04/13/24 10:00 Temperature Source Temporal Artery Scan 04/07/24 13:13 Pulse Rate 90 04/13/24 10:00 Respiratory Rate 18 04/13/24 10:00 Blood Pressure 107/51 L 04/13/24 10:00 Blood Pressure Mean 69 04/13/24 10:00 Blood Pressure Left Arm 134/60 04/07/24 18:08 Blood Pressure Location Right Arm 04/13/24 10:00 Blood Pressure Position Supine 04/13/24 10:00 O2 Sat by Pulse Oximetry 95 04/13/24 10:00 Oxygen Delivery Method Nasal Cannula 04/13/24 10:00 Oxygen Flow Rate 1 04/13/24 10:00 Height 5 ft 8 in 04/09/24 11:04 Weight 162.5 kg 04/09/24 11:04 Telemetry Type Remote Telemetry 04/13/24 07:00 Telemetry Monitoring Continues 04/13/24 07:00 Irregular Telemetry Rate (Approximate) 80-90 BPM 04/13/24 01:00 Telemetry Heart Rate 86 04/13/24 07:00 Telemetry SPO2 96 04/13/24 07:00 EKG QRS Interval 0.09 04/13/24 07:00 Telemetry Strip Reading A-fib 04/13/24 07:00 Imaging: EXAM: LEFT LOWER EXTREMITY DEEP VENOUS ULTRASOUND WITH DOPPLER IMAGING HISTORY: Leg swelling TECHNIQUE: Blum-scale ultrasound with compression maneuvers and color and spectral Doppler ultrasound at rest and with augmentation of the veins was performed. Images were obtained and stored in a permanent archive. COMPARISON: None FINDINGS: LEFT LOWER EXTREMITY: Common Femoral Vein: Normal compression. Normal flow on color Doppler images. Normal response to augmentation. Deep Femoral Vein: Normal compression. Normal flow on color Doppler images. Normal response to augmentation. Superficial Femoral Vein: Not visualized distally. Otherwise, normal co mpression and flow proximally and mid section. Popliteal Vein: Not visualized/identified. Peroneal Vein: Not visualized/identified. Posterior Tibial Vein: Normal compression. Normal flow on color Doppler images. Anterior Tibial Vein: Normal compression. Normal flow on color Doppler images. Greater Saphenous Vein (Superficial): Normal compression Other: Subcutaneous edema IMPRESSION: - No deep venous thrombosis in the left lower extremity noting nonvisualization of the some of the veins as above. - No superficial thrombophlebitis in the left lower extremity. - Subcutaneous edema. Repeat evaluation in 5-7 days advised if edema persists. EXAM: LEFT TIBIA-FIBULA TWO-VIEW HISTORY: Fall. COMPARISON: CT of the left tibia and fibula from 10/02/2023. FINDINGS: see impression. IMPRESSION: Generalized osteopenia. This limits evaluation for subtle, nondisplaced fractures. There is a questionable cortical step off in the proximal fibula. However, this is only seen on the lateral view and may be projectional. Degenerative changes to the ankle and foot. Left knee arthroplasty. Soft tissue edema about the lower leg, ankle and foot. If symptoms persist, or if there is clinical concern for occult injury, recommend follow-up MRI examination. EXAM: SINGLE VIEW OF THE PELVIS HISTORY: Fall. COMPARISON: The left femoral x-rays same day FINDINGS: Pelvic ring is intact. There is degenerative disease of the left hip with narrowing and osteophyte formation. There is surgical hardware in the lumbosacral spine. The soft tissues are unremarkable. IMPRESSION: The no displaced fracture of the pelvis or hips is identified. EXAM: TWO VIEWS OF THE LEFT FEMUR HISTORY: Fall. COMPARISON: Pelvis x-ray same day FINDINGS: There is severe narrowing and osteophyte formation with sclerosis of the left hip joint space. The left femur demonstrates no cortical irregularity or displaced fracture. Left knee arthroplasty hardware is present. Soft tissues are normal. IMPRESSION: Severe degenerative disease of the left hip. Date of Exam: 04/09/2024 Room #: 115 Ordering Physician: CORDELIA ALVARADO NP (HOSPITALIST); NICOLA NYE NP (PCP) Reason for Echo: HEART FAILURE, CHRONIC OBSTRUCTIVE PULMONARY DISEASE, HYPERTENSION, HYPOKALEMIA, LYMPHEDEMA, WORSENING EDEMA M-Mode Normal Adult Results LV Dimensions Normal Adult Results AoV Opening excursions >1.6 >1.6 LVEDD-base- 3.5-5.8 4.1 Ao root dimensions 2.0-3.7 2.9 LVESD-base- 3.1-4.6 L. Atrium dimensions 1.9-3.8 5.3 Post. Wall thickness 0.8-1.1 1.3 IV septum (thickness) 0.7-1.2 1.4 Post. Wall excursion 0.72-1.3 NORMAL Septal motion NORMAL Systolic motion R. Ventricular cavity 1.5-2.0 4.0 LVEF 60% >60% Paradoxical septal wall motion NORMAL 2-D : 2-D M Mode Echocardiogram was performed using apical four chamber and left parasternal long and short axis views. ENLARGED RIGHT ATRIUM, LEFT ATRIUM, AND RIGHT VENTRICLE CAVITIES. NORMAL LEFT VENTRICLE SIZE AND LEFT VENTRICULAR CONTRACTILITY. NORMAL VALVES. NO EFFUSION, NO THROMBUS. M-MODE: MV: NORMAL AV: NORMAL TV: NORMAL PV: NORMAL CHAMBER SIZE: ENLARGED RIGHT ATRIUM, LEFT ATRIUM, AND RIGHT VENTRICLE CAVITIES. WALL MOTION: NORMAL PERICARDIUM: NORMAL INTERPRETATION: 1. DIFFICULT STUDY - TECHNICALLY DIFFICULT ECHOCARDIOGRAM. 2. LEFT VENTRICULAR HYPERTROPHY WITH ENLARGED LEFT ATRIUM CAVITY. 3. ENLARGED RIGHT ATRIUM AND RIGHT VENTRICLE CAVITIES. 4. NORMAL LEFT VENTRICLE SIZE AND LEFT VENTRICULAR CONTRACTILITY. Lab Results Last 24 Hours: 04/13/24 05:12 WBC 5.10 RBC 3.72 L Hgb 11.1 L Hct 35.7 L MCV 96.0 MCH 29.8 MCHC 31.1 L RDW Coeff of Awilda 14.2 Plt Count 169 Immature Gran % (Auto) 0.4 Neut % (Auto) 51.3 Lymph % (Auto) 34.3 [place] % (Auto) 6.9 Eos % (Auto) 6.7 Baso % (Auto) 0.4 Neut # (Auto) 2.6 Lymph # (Auto) 1.8 [place] # (Auto) 0.4 Eos # (Auto) 0.3 Baso # (Auto) 0.0 Immature Gran # (Auto) 0.0 Sodium 136.6 Potassium 3.28 L Chloride 101.7 Carbon Dioxide 32.3 H Anion Gap 5.88 BUN 13.9 Creatinine 1.30 Estimated GFR (MDRD) 41.00 BUN/Creatinine Ratio 10.69 Glucose 102.8 Calcium 8.57 Total Bilirubin 0.99 AST 23.1 ALT 16.7 Alkaline Phosphatase 84.3 Total Protein 5.27 L Albumin 2.81 L Globulin 2.46 Albumin/Globulin Ratio 1.14 Discharge Instructions Discharge Planning: Discharge Planning > 40 minutes If patient is discharged with left ventricular systolic dysfunction: NO Discharged with a beta prabhjot? [] If no, why not? [] Discharged with an april/arb? [] If no, why not? [] DIAGNOSIS: TIB/FIB FRACTURE, LYMPHEDEMA DIET: REGULAR - PT REFUSES LOW SALT DIET ACTIVITY: TOLERATED CAMBOOT WITH COMPRESSION WRAP IS TO REMAIN IN PLACE AT ALL TIMES EXCEPT TO BATHE FOR 4-6 WEEKS FOLLOW-UP WITH ORTHOPEDICS OUTPATIENT MEDICATIONS: NEW MEDS/CHANGES RX PRINTED Discharge Medications: Medications at Discharge (Home Meds & RX) ropinirole 5 mg tablet (Requip) 5 mg PO BID 06/11/13 montelukast 10 mg tablet 10 mg PO DAILY 04/11/17 albuterol sulfate 90 mcg/actuation aerosol inhaler 2 puff inhalation Q4-6H PRN SHORTNESS OF AIR 09/22/21 alprazolam 1 mg tablet 1 mg PO TID PRN Anxiety 06/12/22 cetirizine 10 mg tablet (Allergy Relief (cetirizine)) 10 mg PO DAILY 06/12/22 cyclobenzaprine 5 mg tablet 5 mg PO TID 06/12/22 famotidine 20 mg tablet 20 mg PO BID 06/12/22 omeprazole 40 mg capsule,delayed release 40 mg PO DAILY 06/14/22 rosuvastatin 5 mg tablet 5 mg PO BEDTIME 11/23/22 cholecalciferol (vitamin D3) 25 mcg (1,000 unit) capsule (Vitamin D3) 25 mcg PO DAILY 06/04/23 metoprolol tartrate 25 mg tablet 25 mg PO .nightly 06/04/23 apixaban 5 mg tablet (Eliquis) 5 mg PO BID 11/08/23 torsemide 20 mg tablet See Rx Instructions PO QAM PRN swelling 11/08/23 cyanocobalamin (vitamin B-12) 1 tab PO DAILY 04/07/24 gabapentin 300 mg capsule 300 mg PO .nightly 04/07/24 losartan 25 mg tablet 25 mg PO .nightly 04/07/24 oxycodone-acetaminophen 5 mg-325 mg tablet 1 tab PO 3XD PRN pain 04/07/24 Discharge Plan Discharge Discharge Orders: Discharge Patient (ONCE); Ordered 04/13/24 Ordered By: GENET GORDON Activity Restrictions/Additional Instructions: DIAGNOSIS: TIB/FIB FRACTURE, LYMPHEDEMA DIET: REGULAR - PT REFUSES LOW SALT DIET ACTIVITY: TOLERATED CAMBOOT WITH COMPRESSION WRAP IS TO REMAIN IN PLACE AT ALL TIMES EXCEPT TO BATHE FOR 4-6 WEEKS FOLLOW-UP WITH ORTHOPEDICS OUTPATIENT MEDICATIONS: NEW MEDS/CHANGES RX PRINTED Instructions: Leg Fracture (GEN), Fall Prevention for Older Adults (GEN), Lymphedema (GEN) Prescriptions: New emollient combination no.121 Cream 1 applic topical BID PRN (Reason: wound care) Qty: 155 0RF metoprolol succinate [Toprol XL] 25 mg Tablet Extended Release 24 Hr 12.5 mg PO DAILY Qty: 30 0RF nystatin [Nystop] 100,000 unit/gram Powder 1 applic topical BID Qty: 30 0RF hydroxyzine HCl 25 mg Tablet 25 mg PO Q6HR PRN (Reason: itching) Qty: 30 0RF oxycodone-acetaminophen 7.5-325 mg Tablet 1 tab PO Q6HR PRN (Reason: pain) Qty: 60 0RF Continued montelukast 10 MG tablet 10 mg PO DAILY ropinirole [Requip] 5 MG tablet 5 mg PO BID albuterol sulfate 90 mcg/actuation HFA aerosol inhaler 2 puff INHALATION Q4-6H PRN (Reason: SHORTNESS OF AIR) rosuvastatin 5 mg tablet 5 mg PO BEDTIME cholecalciferol (vitamin D3) [Vitamin D3] 25 mcg (1,000 unit) capsule 25 mcg PO DAILY cetirizine [Allergy Relief (cetirizine)] 10 mg tablet 10 mg PO DAILY alprazolam 1 mg tablet 1 mg PO TID PRN (Reason: Anxiety) famotidine 20 mg tablet 20 mg PO BID cyclobenzaprine 5 mg tablet 5 mg PO TID omeprazole 40 mg Capsule,Delayed Release(Dr/Ec) 40 mg PO DAILY gabapentin 300 mg capsule 300 mg PO .nightly cyanocobalamin (vitamin B-12) 1 tab PO DAILY Eliquis 5 mg tablet 5 mg PO BID torsemide 20 mg tablet See Rx Instructions PO QAM PRN (Reason: swelling) Rx Instructions: orally every morning PRN; Discontinued metoprolol tartrate 25 mg tablet 25 mg PO .nightly oxycodone-acetaminophen 5-325 mg tablet 1 tab PO 3XD PRN (Reason: pain) losartan 25 mg tablet 25 mg PO .nightly Did you review [place] TRAINING ANALYST for ALL controlled substances?: No Discussed opioids are addictive and Narcan is available by prescription or from pharmacy.: No Condition: Fair Referrals: NICOLA NYE [Primary Care Provider] - 04/16/24 1:00 pm
[2024-04-13 14:15] VITALS: BP 104/48; PULSE 94; TEMP 98.5
== END 2024-04-13 15:40 | DRG 607 ==
LOC: ED 13:07 → MEDSURG B 13:07
PROVIDERS: ADMIT Hospitalist; ATTEND Nurse Practitioner Family
DX: S82.402A Unspecified fracture of shaft of left fibula, initial encounter for closed fracture; M48.00 Spinal stenosis, site unspecified; F31.9 Bipolar disorder, unspecified; F41.9 Anxiety disorder, unspecified; J44.9 Chronic obstructive pulmonary disease, unspecified; Z23 Encounter for immunization; Z86.718 Personal history of other venous thrombosis and embolism; E78.5 Hyperlipidemia, unspecified; R79.0 Abnormal level of blood mineral; I50.9 Heart failure, unspecified; Z87.891 Personal history of nicotine dependence; R53.1 Weakness; I89.0 Lymphedema, not elsewhere classified; I48.91 Unspecified atrial fibrillation; I11.0 Hypertensive heart disease with heart failure; E83.42 Hypomagnesemia; S82.302A Unspecified fracture of lower end of left tibia, initial encounter for closed fracture; W19.XXXA Unspecified fall, initial encounter; E87.6 Hypokalemia; S80.12XA Contusion of left lower leg, initial encounter